=== PATIENT | male | born 1950 | race Caucasian/White ===

== ENCOUNTER 2016-07-17 13:07 | Inpatient (IN) ==
[2016-07-17] MEDS ORDERED: Naloxone 0.4 MG/ML INJ IVP PRN (14:24)
[2016-07-17] MEDS ORDERED: MOM Conc 10 ML UD.LIQ PO PRN (14:24)
[2016-07-17] MEDS ORDERED: Ondansetron 4 MG/2 ML VIAL IVP PRN (14:24)
[2016-07-17] MEDS: Acetaminophen 325 MG TABLET PO PRN (14:32)
[2016-07-17 14:34] LABS: Basophils # 0.1 K/mcL (0.0-0.2); Basophils % 1.1 %; Eosinophils # 1.6 K/mcL (0.0-0.6); Eosinophils % 17.6 %; Hematocrit 52.4 % (37.5-50.1); Hemoglobin 17.4 g/dL (12.9-16.9); Immature Granulocytes % 0.3 % (0-4); Lymphocytes # 2.5 K/mcL (0.6-4.6); Lymphocytes % 27.6 %; Mean Corpuscular HGB Conc 33.2 g/dL (31.6-35.5); Mean Corpuscular Hemoglobin 28.8 pg (28.0-33.3); Mean Corpuscular Volume 86.6 fL (83.0-100.0); Mean Platelet Volume 9.7 fL (9.4-12.4); Monocytes # 0.7 K/mcL (0.0-1.3); Monocytes % 7.7 %; Neutrophils # 4.1 K/mcL (1.6-8.9); Platelet Count 382 K/mcL (140-400); Red Blood Count 6.05 M/mcL (4.19-5.50); Red Cell Distribution Width 13.5 % (11.5-14.5); Segmented Neutrophils % 45.7 %
--- NOTE | 2016-07-17 14:36 | Internal Med History&Physical ---
<JorgeMinnie - Last Filed: 07/17/16 15:01> Date of Encounter: 07/17/16 Time of Encounter: 14:10 Assessment and Plan (1) Oropharyngeal cancer Current visit: Yes Status: Suspected Pt sent from ENT for suspected oropharyngeal cancer. 2 month history of dysphagia and weight loss. CT done at [facility] and disc sent with pt, unable to view at this time. Pt sent for biopsy. INR Surgical Consult CT chest CT abdomen and pelvis CT head NPO Nutrition consult for PEG tube feedings (2) Dysphagia Current visit: Yes Status: Acute Pt has had increasing difficulty swallowing over the last 2 months. Voice is muffled. Pt denies pain. NPO for biopsy tomorrow May take medications Qualifiers: Dysphagia type: oropharyngeal phase Qualified Code(s): R13.12 - Dysphagia, oropharyngeal phase (3) Elevated INR Current visit: Yes Status: Acute Pt has been seeing a clinic [place] for [place] Cou[place]. According to friend at , pt has not had any labs drawn. Friend also states that pt was on Coumadin for CVA 2 years ago. INR 7.0 on admission. 2 units FFP Monitor coagulation studies in am. Internal Medicine - H&P: HPI Chief complaint: Difficulty swallowing x 2 months Admitted From: Home Plans for Post Hospital Care: Home History of present illness: Mr. Conley is a 66 year old male who was sent by ENT for admission for biopsy. Pt has suspected oropharyngeal cancer per CT. Reports 2 month history of difficulty swallowing and 8-10 lb weight loss in that time frame. Past Med Surg Social Fam HX - Past Medical History Medical history: CVA Psychiatric history: no psych history - Past Surgical History Surgical History: non-contributory, orthopedic, other (L knee surgery, L shoulder surgery ) - Social History Smoking Status: Current every day smoker Packs per day: 0.5 Smokeless Tobacco Status: No Alcohol use: occasionally Drug use: none Internal Medicine - H&P: Meds Albuterol Sulfate [Albuterol Inhaler] 1 puff IH Q4HR 07/17/16 [History] HYDROcodone/Acet 7.5/325 mg [[place] 7.5-325 mg] 1 tab PO Q4HR PRN 07/17/16 [ History] Magic Mouthwash 5 ml PO TID 07/17/16 [History] Warfarin [Coumadin] 5 mg PO 1800 01/18/17 [History] Allergies No Known Allergies Allergy (Verified 07/17/16 13:52) All Systems PM: A 10-system review of systems was performed and is negative for pertinent findings except as documented above in the HPI. - Constitutional Constitutional: fatigue, weight loss - Cardiovascular Cardiovascular ROS IM: no chest pain, no dyspnea, no edema - Respiratory Respiratory: no dyspnea, no wheezing, no stridor, no chest congestion - Gastrointestinal Gastrointestinal: constipation, dysphagia, no abdominal pain, no change in stool character, no coffee ground emesis, no diarrhea - Constitutional Vitals: Temp Pulse Resp BP Pulse Ox 97.5 F L 88 17 179/97 97 07/17/16 13:50 07/17/16 13:50 07/17/16 13:50 07/17/16 13:50 07/17/16 13:50 General appearance: Present: A&O X 3, underweight, answers questions appropriately - Head Head exam: Present: normal inspection - ENT ENT exam: Present: mucous membranes dry, normal external ear exam - Neck Neck exam general surgery: Present: lymphadenopathy - Respiratory Respiratory exam: Absent: accessory muscle use, decreased breath sounds, respiratory distress, rhonchi, stridor, wheezes - Cardiovascular Cardiovascular exam: Present: RRR, +S1, +S2. Absent: bradycardia, JVD, tachycardia - GI/Abdominal GI/Abdominal exam: Present: hyperactive bowel sounds, soft. Absent: splenomegaly, tenderness - Extremities Exam Extremities exam: Present: radial pulses palpable and symetrical. Absent: cyanotic, joint swelling, normal inspection, mottling, pedal edema - Neurological Exam Neurological exam: Present: alert, oriented X3 - Skin Skin exam: Present: pallor, warm Internal Med - H&P Results - Labs CBC & Chem 7: 07/17/16 14:21 07/17/16 14:21 <Guillermo Copeland T - Last Filed: 07/17/16 15:25> Date of Encounter: 07/17/16 Internal Medicine - H&P: HPI History of present illness: Mr. Conley is a 66 year old male All Systems PM: A 10-system review of systems was performed and is negative for pertinent findings except as documented above in the HPI. - Constitutional Vitals: Temp Pulse Resp BP Pulse Ox 97.5 F L 88 17 179/97 97 07/17/16 13:50 07/17/16 13:50 07/17/16 13:50 07/17/16 13:50 07/17/16 13:50 Internal Med - H&P Results - Labs CBC & Chem 7: 07/17/16 14:21 07/17/16 14:21 Labs: Short CBC 07/17/16 Range/Units 14:21 WBC 9.1 (4.3-11.1) K/mcL Hgb 17.4 H (12.9-16.9) g/dL Hct 52.4 H (37.5-50.1) % Plt Count 382 (140-400) K/mcL Neutrophils # 4.1 (1.6-8.9) K/mcL BMP 07/17/16 14:21 Sodium 134 L Potassium 4.1 Chloride 97 L Carbon Dioxide 24 BUN 8 Creatinine 0.81 Glucose 97 Calcium 9.4 Liver Function 07/17/16 Range/Units 14:21 Total Bilirubin 0.5 (0.2-1.2) mg/dL AST 21 (5-34) Units/L ALT 21 (0-55) Units/L Alkaline Phosphatase 113 (38-126) Units/L Albumin 3.8 (3.5-5.0) g/dL - Attending Attestation I have independently seen and examined this patient, and discussed turner of care with patient, his best friend who is his MPOA and his best friends daughter 66 Y/O M, smoker, HTN, hx of CVA without residual deficits on Coumadin (unsure why Coumadin and not ASA), Patient denies any history of ASA allergy. Chart review from [facility] also reviewed hx of COPD, HTN, Arthritis, s/p ORIF of left shoulder and L femur. Patient is referred to hospitalist for admission from ENT physician who is seeing patient for suspected pharyngeal CA. Due to use of Coumadin, he is being admitted for work up for biopsy and for possible pre-op clearance and possible PEG tube placement Hx from patient and family reveal he has been having poor oral intake for about 8 months with associated weight loss and dysphagia. His PCPs office obtained a neck CT and referred him here for eval. At time of review, his complaint is of headache which is worse when he lays flat and improves with sitting up. Denies chest pain, SOB, abdominal discomfort, change in bowel or urinary habits. Physical Exam revealed a disheveled elderly man in painful distress, VS with elevated BP. No obvious scalp lesions, no tenderness of scalp to palpation he is alert and oriented no facial droop, he moves all limbs spontaneously, and no speech deficits. His voice is muffled possibly from his pharyngeal mass, anterior cervical lymph nodes; tongue is central, unable to see beyond his upper palate. Chest is clear, heart sounds S1, S2 only, abdomen is scaphoid, not tender, normal bowel sounds. No extremity edema. Assessment/Plan: Suspected Oropharyngeal CA: Labs and Imaging has been ordered including CBC, Type and screen, PT/INR/PTT, Head and Neck, Chest, abdomen/pelvis CT for staging with contrast,, EKG and comprehensive metabolic panel. FFP if INR >1.7, Hold Coumadin, Pain control. Start Norvasc for HTN. Nutrition consult, NPO for now except medications, IVF hydration, and General surgery for evaluation for feeding tube. Oncology consult when results are back Plan of care discussed with patient, verbalizes understanding. Patient is full code Rest of details as in SAFETY ASSISTANT documentation.
[2016-07-17 14:49] LABS: Alanine Aminotransferase 21 Units/L (0-55); Albumin 3.8 g/dL (3.5-5.0); Albumin/Globulin Ratio 0.9 (1.1-2.2); Alkaline Phosphatase 113 Units/L (38-126); Aspartate Amino Transferase 21 Units/L (5-34); BUN/Creatinine Ratio 10 (6-26); Bilirubin,Total 0.5 mg/dL (0.2-1.2); Blood Urea Nitrogen 8 mg/dL (8-26); Calcium 9.4 mg/dL (8.6-10.8); Carbon Dioxide 24 mEq/L (19-29); Chloride 97 mEq/L (98-109); Globulin 4.2 g/dL (2.4-3.5); Glucose 97 mg/dL (70-99); Osmolality,Calculated 276 (280-300); Potassium 4.1 mEq/L (3.5-4.5); Sodium 134 mEq/L (136-145); eGFR For African Americans > 60 (> 60); eGFR For Non-African Americans > 60 (> 60)
[2016-07-17 14:52] LABS: Activated Partial Thrombo Time 100.2 Seconds (26.0-36.0)
[2016-07-17 14:54] LABS: Prothrombin Time 80.7 Seconds (9.4-12.1)
[2016-07-17] MEDS: Magic Mouthwash 10 ML UD Cup PO SCH ×2 (15:31→20:56)
[2016-07-17] MEDS ORDERED: 0.9 % Sodium Chloride 250 ML ONE ×2 (16:09→19:09)
[2016-07-17] MEDS: *HR* HYDROcodone/Acet 5/325 mg TABLET PO PRN ×2 (16:15→20:56)
[2016-07-17] MEDS: D5% in 0.9% NACL 1,000 ML IVC SCH (16:16)
[2016-07-17] MEDS ORDERED: *HR* Labetalol 20 MG/4 ML SYRINGE IVP ONE (16:23)
[2016-07-17] MEDS ORDERED: amLODIPine 5 MG TABLET PO ONE ×2 (20:15)
[2016-07-18 04:33] LABS: Basophils # 0.1 K/mcL (0.0-0.2); Basophils % 0.8 %; Eosinophils # 1.8 K/mcL (0.0-0.6); Eosinophils % 13.6 %; Hematocrit 46.4 % (37.5-50.1); Hemoglobin 15.9 g/dL (12.9-16.9); Immature Granulocytes % 0.3 % (0-4); Lymphocytes # 1.9 K/mcL (0.6-4.6); Lymphocytes % 14.4 %; Mean Corpuscular HGB Conc 34.3 g/dL (31.6-35.5); Mean Corpuscular Hemoglobin 29.3 pg (28.0-33.3); Mean Corpuscular Volume 85.6 fL (83.0-100.0); Mean Platelet Volume 10.1 fL (9.4-12.4); Monocytes # 1.2 K/mcL (0.0-1.3); Monocytes % 9.1 %; Platelet Count 321 K/mcL (140-400); Red Blood Count 5.42 M/mcL (4.19-5.50); Red Cell Distribution Width 13.4 % (11.5-14.5); Segmented Neutrophils % 61.8 %
[2016-07-18 04:36] LABS: Activated Partial Thrombo Time 54.3 Seconds (26.0-36.0)
[2016-07-18 04:41] LABS: INR 2.6; Prothrombin Time 28.5 Seconds (9.4-12.1)
[2016-07-18 04:44] LABS: BUN/Creatinine Ratio 8 (6-26); Calcium 8.9 mg/dL (8.6-10.8); Carbon Dioxide 24 mEq/L (19-29); Chloride 100 mEq/L (98-109); Glucose 125 mg/dL (70-99); Osmolality,Calculated 279 (280-300); Potassium 3.4 mEq/L (3.5-4.5); Sodium 135 mEq/L (136-145); eGFR For African Americans > 60 (> 60); eGFR For Non-African Americans > 60 (> 60)
[2016-07-18 05:05] LABS: Blood Urea Nitrogen 5 mg/dL (8-26)
--- NOTE | 2016-07-18 07:54 | General Surgery Consult Note ---
<Daquan Lewis - Last Filed: 07/18/16 13:55> Date of Encounter: 07/18/16 Time of Encounter: 07:20 Assessment and Plan (1) Dysphagia Current Visit: Yes Status: Acute Plan for PEG placement, Triple endoscopy and biopsy, and possible trach placement tomorrow. INR to be further corrected, <1.3 prior to surgery NPO after midnight Continue IVF and clear fluids Qualifiers: Dysphagia type: oropharyngeal phase Qualified Code(s): R13.12 - Dysphagia, oropharyngeal phase (2) Neck mass Current Visit: Yes Status: Acute Likely R oropharyngeal cancer. ENT on board. Consult oncology. (3) Malnutrition Current Visit: Yes Status: Acute Nutrition consulted. Plan for PEG placement tomorrow. (4) Elevated INR Current Visit: Yes Status: Acute Patient received 2 units of fresh frozen plasma. INR initially 7, currently 2.6. Continue to trend and recheck. Per ENT, goal is less than 1.3 prior to procedure tomorrow. (5) HTN (hypertension) Current Visit: Yes Status: Chronic BP stable at this time. No home medications noted, was started on 10mg Norvasc daily. Management per medicine service. Qualifiers: Hypertension type: essential hypertension Qualified Code(s): I10 - Essential (primary) hypertension History of Present Illness Consult date: 07/17/16 Reason for consult: other (PEG tube placement) Requesting physician: Minnie Patel History of present illness: Mr. Conley is 66 year old male that presented to the hospital after seeing ENT for neck mass x 2 months and dysphagia and weight loss x 2-3 weeks. PMHx of tobacco use 1/2ppd x 50 years, HTN, CVA without residual deficits (on Coumadin) , COPD, Arthritis, s/p ORIF of left shoulder and L femur. Patient was referred to ENT after neck CT was done by PCP. Patient currently states he has a headache in the R temporal region extending down the right side of his face and neck. Patient states he has difficulty with both solids and liquids. He notes increased sputum production. He denies any dizziness, chest pain, shortness of breath, nausea, vomiting, abdominal pain, any changes with his bowels or bladder. Past Med Surg Social Fam HX - Past Medical History Medical history: CVA Psychiatric history: no psych history - Past Surgical History Surgical History: non-contributory, orthopedic, other (L knee surgery, L shoulder surgery ) - Social History Smoking Status: Current every day smoker Packs per day: 0.5 Smokeless Tobacco Status: No Alcohol use: occasionally Drug use: none Medications and Allergies Albuterol Sulfate [Albuterol Inhaler] 2 puff IH Q4HR PRN 07/17/16 [History] HYDROcodone/Acet 7.5/325 mg [[place] 7.5-325 mg] 1 - 2 tab PO Q4HR PRN 07/17/16 [ History] Magic Mouthwash 5 ml PO Q4H PRN 07/17/16 [History] Warfarin [Coumadin] 5 mg PO 1800 07/17/16 [History] Allergies No Known Allergies Allergy (Verified 07/17/16 13:52) Review of Systems All systems PM: A 10-system review of systems was performed and is negative for pertinent findings except as documented above in the HPI. - Constitutional headache(s), weakness, weight loss, no chills, no fever(s) - EENT Nose, mouth and throat: change in voice, facial pain, headache(s), neck mass, neck pain, post-nasal drip - Cardiovascular no chest pain, no dyspnea, no edema, no lightheadedness, no syncope - Respiratory excessive phlegm production - Gastrointestinal dysphagia, no abdominal pain, no nausea, no vomiting - Genitourinary no dysuria, no hematuria - Musculoskeletal muscle weakness, no radiating pain into limb - Neurological no confusion, no focal weakness General Surgery Exam Initial Vital Signs Temp Pulse Resp BP Pulse Ox 97.5 F L 88 17 179/97 97 07/17/16 13:50 07/17/16 13:50 07/17/16 13:50 07/17/16 13:50 07/17/16 13:50 - General physical appearance well developed, well nourished, no distress - ENT normal mucosa, atraumatic, normocephalic - Neck negative: no masses, no lymphadectomy - Respiratory normal respiratory effort, clear to auscultation - Cardiovascular Cardiovascular exam: Present: RRR, no murmurs/rubs/gallops - Expanded Cardiovascular Exam Peripheral pulses: 2+: Dorsalis Pedis (L) PM, Dorsalis Pedis (R) PM - Abdomen Abdomen general surgery: Present: bowel sounds present, soft, non tender - Integumentary Integumentary general surgery: Present: warm and dry, no abnormal pigmentation - Neurologic Present: CN 2-12 grossly intact. Absent: combative, confused - Musculoskeletal Present: normal gait, normal posture - Psychiatric Psychiatric general surgery: Present: A&Ox3, appropriate Exam Initial Vital Signs Temp Pulse Resp BP Pulse Ox 97.5 F L 88 17 179/97 97 07/17/16 13:50 07/17/16 13:50 07/17/16 13:50 07/17/16 13:50 07/17/16 13:50 Results - Labs 07/18/16 03:40 07/18/16 03:40 Abnormal lab results WBC 13.0 K/mcL (4.3-11.1) H 07/18/16 03:40 Eosinophils # 1.8 K/mcL (0.0-0.6) H 07/18/16 03:40 PT 28.5 Seconds (9.4-12.1) H D 07/18/16 03:40 APTT 54.3 Seconds (26.0-36.0) H 07/18/16 03:40 Sodium 135 mEq/L (136-145) L 07/18/16 03:40 Potassium 3.4 mEq/L (3.5-4.5) L 07/18/16 03:40 BUN 5 mg/dL (8-26) L 07/18/16 03:40 Creatinine 0.65 mg/dL (0.72-1.25) L 07/18/16 03:40 Glucose 125 mg/dL (70-99) H 07/18/16 03:40 Calculated Osmolality 279 (280-300) L 07/18/16 03:40 Globulin 4.2 g/dL (2.4-3.5) H 07/17/16 14:21 Albumin/Globulin Ratio 0.9 (1.1-2.2) L 07/17/16 14:21 Diabetes panel 07/17/16 07/18/16 Range/Units 14:21 03:40 Sodium 134 L 135 L (136-145) mEq/L Potassium 4.1 3.4 L (3.5-4.5) mEq/L Chloride 97 L 100 (98-109) mEq/L Carbon Dioxide 24 24 (19-29) mEq/L BUN 8 5 L (8-26) mg/dL Creatinine 0.81 0.65 L (0.72-1.25) mg/dL Glucose 97 125 H (70-99) mg/dL Calcium 9.4 8.9 (8.6-10.8) mg/dL AST 21 (5-34) Units/L ALT 21 (0-55) Units/L Alkaline Phosphatase 113 (38-126) Units/L Albumin 3.8 (3.5-5.0) g/dL Calcium panel 07/17/16 07/18/16 Range/Units 14:21 03:40 Calcium 9.4 8.9 (8.6-10.8) mg/dL Albumin 3.8 (3.5-5.0) g/dL Pituitary panel 07/17/16 07/18/16 Range/Units 14:21 03:40 Sodium 134 L 135 L (136-145) mEq/L Potassium 4.1 3.4 L (3.5-4.5) mEq/L Chloride 97 L 100 (98-109) mEq/L Carbon Dioxide 24 24 (19-29) mEq/L BUN 8 5 L (8-26) mg/dL Creatinine 0.81 0.65 L (0.72-1.25) mg/dL Glucose 97 125 H (70-99) mg/dL Calcium 9.4 8.9 (8.6-10.8) mg/dL Adrenal panel 07/17/16 07/18/16 Range/Units 14:21 03:40 Sodium 134 L 135 L (136-145) mEq/L Potassium 4.1 3.4 L (3.5-4.5) mEq/L Chloride 97 L 100 (98-109) mEq/L Carbon Dioxide 24 24 (19-29) mEq/L BUN 8 5 L (8-26) mg/dL Creatinine 0.81 0.65 L (0.72-1.25) mg/dL Glucose 97 125 H (70-99) mg/dL Calcium 9.4 8.9 (8.6-10.8) mg/dL Total Bilirubin 0.5 (0.2-1.2) mg/dL AST 21 (5-34) Units/L ALT 21 (0-55) Units/L Alkaline Phosphatase 113 (38-126) Units/L Albumin 3.8 (3.5-5.0) g/dL All other labs normal. Consult Discharge Plan - Plan Referrals: NO,PCP [Primary Care Provider] - <Jian Marr - Last Filed: 07/19/16 14:49> Review of Systems All systems PM: A 10-system review of systems was performed and is negative for pertinent findings except as documented above in the HPI. General Surgery Exam Initial Vital Signs Temp Pulse Resp BP Pulse Ox 97.5 F L 88 17 179/97 97 07/17/16 13:50 07/17/16 13:50 07/17/16 13:50 07/17/16 13:50 07/17/16 13:50 Exam Initial Vital Signs Temp Pulse Resp BP Pulse Ox 97.5 F L 88 17 179/97 97 07/17/16 13:50 07/17/16 13:50 07/17/16 13:50 07/17/16 13:50 07/17/16 13:50 Results - Labs 07/19/16 03:48 07/19/16 03:48 Abnormal lab results WBC 17.5 K/mcL (4.3-11.1) H 07/19/16 03:48 Neutrophils # 11.9 K/mcL (1.6-8.9) H 07/19/16 03:48 Monocytes # 1.6 K/mcL (0.0-1.3) H 07/19/16 03:48 Eosinophils # 1.1 K/mcL (0.0-0.6) H 07/19/16 03:48 PT 14.4 Seconds (9.4-12.1) H D 07/19/16 03:48 APTT 54.3 Seconds (26.0-36.0) H 07/18/16 03:40 Sodium 133 mEq/L (136-145) L 07/19/16 03:48 BUN 3 mg/dL (8-26) L 07/19/16 03:48 Creatinine 0.65 mg/dL (0.72-1.25) L 07/19/16 03:48 BUN/Creatinine Ratio 5 (6-26) L 07/19/16 03:48 Glucose 120 mg/dL (70-99) H 07/19/16 03:48 Calculated Osmolality 274 (280-300) L 07/19/16 03:48 Globulin 4.2 g/dL (2.4-3.5) H 07/17/16 14:21 Albumin/Globulin Ratio 0.9 (1.1-2.2) L 07/17/16 14:21 Diabetes panel 07/19/16 Range/Units 03:48 Sodium 133 L (136-145) mEq/L Potassium 3.8 (3.5-4.5) mEq/L Chloride 100 (98-109) mEq/L Carbon Dioxide 26 (19-29) mEq/L BUN 3 L (8-26) mg/dL Creatinine 0.65 L (0.72-1.25) mg/dL Glucose 120 H (70-99) mg/dL Calcium 8.9 (8.6-10.8) mg/dL Calcium panel 07/19/16 Range/Units 03:48 Calcium 8.9 (8.6-10.8) mg/dL Pituitary panel 07/19/16 Range/Units 03:48 Sodium 133 L (136-145) mEq/L Potassium 3.8 (3.5-4.5) mEq/L Chloride 100 (98-109) mEq/L Carbon Dioxide 26 (19-29) mEq/L BUN 3 L (8-26) mg/dL Creatinine 0.65 L (0.72-1.25) mg/dL Glucose 120 H (70-99) mg/dL Calcium 8.9 (8.6-10.8) mg/dL Adrenal panel 07/19/16 Range/Units 03:48 Sodium 133 L (136-145) mEq/L Potassium 3.8 (3.5-4.5) mEq/L Chloride 100 (98-109) mEq/L Carbon Dioxide 26 (19-29) mEq/L BUN 3 L (8-26) mg/dL Creatinine 0.65 L (0.72-1.25) mg/dL Glucose 120 H (70-99) mg/dL Calcium 8.9 (8.6-10.8) mg/dL All other labs normal. - Attending Attestation I examined this patient and my medical decision-making was reviewed with the CERTIFIED [employer] OPERATOR/PA/Advanced Practice Nurse/Resident Physician. I agree with the documented findings, disposition and treatment plan as described except to the extent set forth below. Jian Marr MD FACS
--- NOTE | 2016-07-18 08:05 | ENT - Progress Note ---
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 Treatment would be palliative. I think it's reasonable to not only provide a PEG but discuss possible treatment with him today. If after these discussions he does not want treatment I would advocate for a trach placement if the frozen analysis comes back as squamous cell cancer, as I suspect it will be. 1. Plan for OR tomorrow - PEG, Triple endoscopy and biopsy, possible trach placement 2. Please consult Oncology, Radiation Oncology and Palliative today 3. INR to be further corrected - appreciate IM help here - ideally need to see this lower by the end of the day and need <1.3 prior to surgery 4. NPO after MN 5. Continue IVF and liquids, ambulation, DVT prophylaxis Please page with questions/concerns. Subjective Patient reports: no new complaints, other (swallowing some liquids, ambulating to bathroom) Objective Initial Vital Signs Temp Pulse Resp BP Pulse Ox 97.5 F L 88 17 179/97 97 07/17/16 13:50 07/17/16 13:50 07/17/16 13:50 07/17/16 13:50 07/17/16 13:50 - General physical appearance chronically ill - ENT Other (unchanged from exam yesterday) - Labs 07/18/16 03:40 07/18/16 03:40 Diabetes panel 07/17/16 07/18/16 Range/Units 14:21 03:40 Sodium 134 L 135 L (136-145) mEq/L Potassium 4.1 3.4 L (3.5-4.5) mEq/L Chloride 97 L 100 (98-109) mEq/L Carbon Dioxide 24 24 (19-29) mEq/L BUN 8 5 L (8-26) mg/dL Creatinine 0.81 0.65 L (0.72-1.25) mg/dL Glucose 97 125 H (70-99) mg/dL Calcium 9.4 8.9 (8.6-10.8) mg/dL AST 21 (5-34) Units/L ALT 21 (0-55) Units/L Alkaline Phosphatase 113 (38-126) Units/L Albumin 3.8 (3.5-5.0) g/dL Calcium panel 07/17/16 07/18/16 Range/Units 14:21 03:40 Calcium 9.4 8.9 (8.6-10.8) mg/dL Albumin 3.8 (3.5-5.0) g/dL Pituitary panel 07/17/16 07/18/16 Range/Units 14:21 03:40 Sodium 134 L 135 L (136-145) mEq/L Potassium 4.1 3.4 L (3.5-4.5) mEq/L Chloride 97 L 100 (98-109) mEq/L Carbon Dioxide 24 24 (19-29) mEq/L BUN 8 5 L (8-26) mg/dL Creatinine 0.81 0.65 L (0.72-1.25) mg/dL Glucose 97 125 H (70-99) mg/dL Calcium 9.4 8.9 (8.6-10.8) mg/dL Adrenal panel 07/17/16 07/18/16 Range/Units 14:21 03:40 Sodium 134 L 135 L (136-145) mEq/L Potassium 4.1 3.4 L (3.5-4.5) mEq/L Chloride 97 L 100 (98-109) mEq/L Carbon Dioxide 24 24 (19-29) mEq/L BUN 8 5 L (8-26) mg/dL Creatinine 0.81 0.65 L (0.72-1.25) mg/dL Glucose 97 125 H (70-99) mg/dL Calcium 9.4 8.9 (8.6-10.8) mg/dL Total Bilirubin 0.5 (0.2-1.2) mg/dL AST 21 (5-34) Units/L ALT 21 (0-55) Units/L Alkaline Phosphatase 113 (38-126) Units/L Albumin 3.8 (3.5-5.0) g/dL - Imaging CT scan - abdomen: report reviewed CT scan - chest: report reviewed CT Scan - head: report reviewed CT scan - pelvis: report reviewed - VTE Reasons for not Prescribing Prophylaxis: Medical contraindication Documentation of Mechanical Device: Graduated compression elastic hosiery Deep Vein Thrombosis/Pulmonary Embolism Present on Admission: No Consult Discharge Plan - Plan Referrals: NO,PCP [Primary Care Provider] -
[2016-07-18] MEDS: amLODIPine 5 MG TABLET PO SCH (08:24)
[2016-07-18] MEDS: Magic Mouthwash 10 ML UD Cup PO SCH ×3 (08:24→19:53)
[2016-07-18] MEDS: D5% in 0.9% NACL 1,000 ML IVC SCH (08:27)
[2016-07-18] MEDS ORDERED: *HR* Promethazine 25 MG/ML VIAL IVP PRN (08:46)
[2016-07-18] MEDS ORDERED: Ondansetron 4 MG/2 ML VIAL IVP PRN (08:48)
--- NOTE | 2016-07-18 08:55 | Internal Med Progress Note ---
Date of Encounter: 07/18/16 Time of Encounter: 08:30 - Assessment and plan (1) Oropharyngeal cancer Current Visit: Yes Status: Suspected Assessment and plan: Patient was sent from an outlying hospital with suspected oropharyngeal cancer. 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 Mild narrowing of supraglottic airway also noted. ENT is on board. Surgery is on board. Plan is for biopsy and PEG tube placement tomorrow assuming his INR is 1.3 or less. It does not appear to be any further metastasis at this time. Head CT negative, chest CT negative, abdominal pelvic CT negative. On examination, patient's voice is muffled. No stridor or drooling. He is able to drink liquids however intermittently chokes. Speech therapy is on board and have recommended a modified barium swallow to be done on Friday if still indicated. Nutrition and oncology also on board. Palliative care on board as well. Patient stating that if he were to get sicker that he wants "nothing done, keep me comfortable." CODE STATUS updated to DNR CC at this time. We will continue to control his pain. ITS Impressions Soft Tissue Neck CT 07/17/16 00:00 IMPRESSION: Large 4.3 cm infiltrative right supraglottic mass involving the tonsil which extends posteriorly to encase the right internal carotid artery. There is associated right level IIb jugulodigastric lymphadenopathy measuring 1.8 cm and 1.9 cm. These changes are compatible with squamous cell carcinoma. There is mild narrowing of the supraglottic airway which is mildly displaced to the left. D/ / 07/17/2016 16:52:23 Law Pineda MD / [email or web address] Interpreting Provider: Law Pineda MD Head CT 07/17/16 14:19 IMPRESSION: No acute intracranial abnormality. D/ / Paul Mejia MD / Paul Mejia MD Interpreting Provider: Paul Mejia MD Chest CT 07/17/16 14:21 IMPRESSION: No CT evidence for metastatic disease in the abdomen or pelvis or chest D/ / Paul Mejia MD / Paul Mejia MD Interpreting Provider: Paul Mejia MD Abdomen/Pelvis CT 07/17/16 14:22 IMPRESSION: No CT evidence for metastatic disease in the abdomen or pelvis or chest D/ / Paul Mejia MD / Paul Mejia MD Interpreting Provider: Paul Mejia MD (2) Neck mass Current Visit: Yes Status: Acute (3) Supratherapeutic INR Current Visit: Yes Status: Resolved Assessment and plan: Patient was given 2 units of fresh frozen plasma. INR initially at 7 and currently 2.6. We will continue to trend and recheck later today. Per ENT, goal is less than 1.3 prior to procedure tomorrow. (4) Code status needs review Current Visit: Yes Status: Acute Assessment and plan: History to the patient regarding his CODE STATUS, patient stating he does not want anything done and he wants to be kept comfortable. We will update CODE STATUS to DNR CC. Palliative care on board. (5) Weight loss, unintentional Current Visit: Yes Status: Acute Assessment and plan: Nutrition and palliative are on board. Plan at this time is to place a PEG tube tomorrow morning per Dr. Marr. (6) Tobacco abuse Current Visit: Yes Status: Chronic Assessment and plan: declined counseling at this time. (7) Leukocytosis Current Visit: Yes Status: Acute Assessment and plan: mild; possibly stress related. No signs of acute infection other than his URI symptoms. No indication for antibiotics at this time. Will trend. (8) Hypokalemia Current Visit: Yes Status: Acute Assessment and plan: mild; IVF changed, will recheck in am. (9) Dysphagia Current Visit: Yes Status: Acute Assessment and plan: Acute on chronic over the past 2 months. Nothing by mouth at this time. Speech therapy has recommended an MBS for friday if still indicated. Patient is stating that he is able to swallow liquids most of the time but states she does sometimes choke. PEG tube to be placed tomorrow. Oncology, surgery, ENT, palliative care, nutrition and speech all on board. Qualifiers: Dysphagia type: oropharyngeal phase Qualified Code(s): R13.12 - Dysphagia, oropharyngeal phase (10) Malnutrition Current Visit: Yes Status: Acute (11) HTN (hypertension) Current Visit: Yes Status: Chronic Assessment and plan: Controlled, we will continue to trend and adjust medications as indicated. Qualifiers: Hypertension type: essential hypertension Qualified Code(s): I10 - Essential (primary) hypertension - Subjective Interval history: Patient seen and examined. On examination, patient is sitting upright in bed. Patient stating his throat hurts, his head hurts, and he feels as if his nose is stuffed up and feels as if he has a cold. Patient is also endorsing mild shortness of breath but not worse than his norm. He denies nausea. - Constitutional Vitals: Temp Pulse Resp BP Pulse Ox 97.4 F L 77 19 145/73 96 07/18/16 07:07 07/18/16 07:07 07/18/16 08:27 07/18/16 07:07 07/18/16 08:32 General appearance: Present: A&O X 3, pleasant, no acute distress, loss of weight, answers questions appropriately - Head Head exam: Present: atraumatic, normocephalic - Eye Eye exam: Present: PERRL, conjuntiva pink, sclera anicteric Pupils: Present: PERRL - ENT ENT exam: Present: mucous membranes dry - Expanded ENT Exam Mouth exam: Present: muffled voice. Absent: drooling, normal external inspection Throat exam: Present: R peritonsillar mass, post pharyngeal edema, post pharyngeal erythema - Neck Neck exam general surgery: Present: supple, trachea midline. Absent: lymphadenopathy - Respiratory Respiratory exam: Present: decreased breath sounds, rhonchi. Absent: accessory muscle use, rales, respiratory distress, wheezes - Cardiovascular Cardiovascular exam: Present: RRR, +S1, +S2. Absent: diastolic murmur, gallop, rubs, systolic murmur - GI/Abdominal GI/Abdominal exam: Present: distended, normal bowel sounds, soft, no peritoneal signs. Absent: tenderness - Extremities Exam Extremities exam: Present: warm, radial pulses palpable and symetrical. Absent : calf tenderness, cyanotic, pedal edema - Neurological Exam Neurological exam: Present: alert, CN II-XII intact, oriented X3, no focal deficits, strengths equal and symetr throughout. Absent: pronater drift, facial droop, speech deficit - Skin Skin exam: Present: dry, intact, pallor, warm Internal Medicine: Result - Labs CBC & Chem 7: 07/18/16 03:40 07/18/16 03:40 Labs: Short CBC 07/17/16 07/18/16 Range/Units 14:21 03:40 WBC 9.1 13.0 H (4.3-11.1) K/mcL Hgb 17.4 H 15.9 D (12.9-16.9) g/dL Hct 52.4 H 46.4 (37.5-50.1) % Plt Count 382 321 (140-400) K/mcL Neutrophils # 4.1 8.0 (1.6-8.9) K/mcL BMP 07/17/16 07/18/16 14:21 03:40 Sodium 134 L 135 L Potassium 4.1 3.4 L Chloride 97 L 100 Carbon Dioxide 24 24 BUN 8 5 L Creatinine 0.81 0.65 L Glucose 97 125 H Calcium 9.4 8.9 Liver Function 07/17/16 Range/Units 14:21 Total Bilirubin 0.5 (0.2-1.2) mg/dL AST 21 (5-34) Units/L ALT 21 (0-55) Units/L Alkaline Phosphatase 113 (38-126) Units/L Albumin 3.8 (3.5-5.0) g/dL - ABG Interpretation ABG results: PT/INR, D-dimer PT 28.5 Seconds (9.4-12.1) H D 07/18/16 03:40 - Impressions Impressions Soft Tissue Neck CT 07/17/16 00:00 IMPRESSION: Large 4.3 cm infiltrative right supraglottic mass involving the tonsil which extends posteriorly to encase the right internal carotid artery. There is associated right level IIb jugulodigastric lymphadenopathy measuring 1.8 cm and 1.9 cm. These changes are compatible with squamous cell carcinoma. There is mild narrowing of the supraglottic airway which is mildly displaced to the left. D/ / 07/17/2016 16:52:23 Law Pineda MD / [email or web address] Interpreting Provider: Law Pineda MD Head CT 07/17/16 14:19 IMPRESSION: No acute intracranial abnormality. D/ / Paul Mejia MD / Paul Mejia MD Interpreting Provider: Paul Mejia MD Chest CT 07/17/16 14:21 IMPRESSION: No CT evidence for metastatic disease in the abdomen or pelvis or chest D/ / Paul Mejia MD / Paul Mejia MD Interpreting Provider: Paul Mejia MD Abdomen/Pelvis CT 07/17/16 14:22 IMPRESSION: No CT evidence for metastatic disease in the abdomen or pelvis or chest D/ / Paul Mejia MD / Paul Mejia MD Interpreting Provider: Paul Mejia MD - Stroke Reason for No Anticoagulant at DC: Medical contraindication - VTE Reasons for not Prescribing Prophylaxis: Medical contraindication Documentation of Mechanical Device: Graduated compression elastic hosiery Deep Vein Thrombosis/Pulmonary Embolism Present on Admission: No Consult Discharge Plan - Plan Referrals: NO,PCP [Primary Care Provider] -
[2016-07-18] MEDS ORDERED: amLODIPine 5 MG TABLET PO SCH (09:00)
[2016-07-18] MEDS: D5% in 0.45% NACL w KCl 20 MEQ/1,000 ML MLS IVC SCH ×2 (09:52→23:44)
[2016-07-18] MEDS: *HR* Morphine 2 MG/ML SYRINGE IVP PRN (09:52)
--- NOTE | 2016-07-18 10:39 | Palliative - Consult Note ---
Date of Encounter: 07/18/16 Time of Encounter: 10:00 - Assessment and Plan (1) Right facial pain Current Visit: Yes Status: Acute Assessment and plan: [place] has been switched to Oxycodone 10 mg - which I think is very appropriate. He also has IV Morphine if needed. Monitor. (2) Constipation Current Visit: Yes Status: Acute Assessment and plan: Give dose Dulcolax today. Start Senokot daily Qualifiers: Constipation type: unspecified constipation type Qualified Code(s): K59.00 - Constipation, unspecified (3) Counseling regarding advanced care planning and goals of care Current Visit: Yes Status: Acute Assessment and plan: Patient has been transitioned to [facility] prior to my visit. He is unsure at this time if he desires treatment. Discussed that with location of this tumor, breathing and swallowing can be affected. Discussed briefly PEG/Trach. Patient is alert and oriented but seems to lack some insight and I feel he needs some assistance with making decisions. States only family is an estranged son. He desires his best friend Ismael to be his medical power of corporate associate attorney. It would be best if Ismael could be present while pt recieving information and making decisions. I am attempting to reach via phone, unsuccessful thus far. Will continue. Forward Ismael contact number to Shakir Carrasco NP who will be seeing pt this afternoon for oncology. Will follow closely. (4) Dysphagia Current Visit: Yes Status: Acute Qualifiers: Dysphagia type: oropharyngeal phase Qualified Code(s): R13.12 - Dysphagia, oropharyngeal phase (5) Neck mass Current Visit: Yes Status: Acute (6) Malnutrition Current Visit: Yes Status: Acute Palliative-CN HPI - Data of Consult Consult date: 07/18/16 Requesting Physician: Janiya Lin Primary Care Provider: PCP NO - Consult Narrative History of present illness: Mr. Conley is a 66 year old male with a previous history of CVA 2 yrs ago, Copd , HTN, who presented with 2 month history of difficulty swallowing and weight loss. He states he has also had rt sided headaches. He does not have a primary physician. Was seen by ENT and suspected to have laryngeal cancer. CT with large mass extending around the right ICA wth lymph node involvement and narrowing of supraglottic airway. He remains on Coumadin from previous CVA and INR elevated on admission. Currently awaiting consults from surgery, ENT, oncology as well. Dieticians following. Patient lives alone and his independent, has friend Ismael Moses states is "best friend" and helps him out. One son, but he is estranged. History of tobacco abuse. Currently sitting up in bed c/o right sided headache, [place] has not been effective. C/o constipation and states has been 1 week since BM. Appears in no distress, taking sips of clear liquids. CC: Janiya Lin Past Med Surg Social Fam HX - Past Medical History Medical history: CVA Psychiatric history: no psych history - Past Surgical History Surgical History: non-contributory, orthopedic, other (L knee surgery, L shoulder surgery ) - Social History Smoking Status: Current every day smoker Packs per day: 0.5 Smokeless Tobacco Status: No Alcohol use: occasionally Drug use: none Medications and Allergies Albuterol Sulfate [Albuterol Inhaler] 2 puff IH Q4HR PRN 07/17/16 [History] HYDROcodone/Acet 7.5/325 mg [[place] 7.5-325 mg] 1 - 2 tab PO Q4HR PRN 07/17/16 [ History] Magic Mouthwash 5 ml PO Q4H PRN 07/17/16 [History] Warfarin [Coumadin] 5 mg PO 1800 07/17/16 [History] Allergies No Known Allergies Allergy (Verified 07/17/16 13:52) All systems: reviewed and no additional remarkable complaints except as stated ( constipation, difficulty swallowing, rt sided headache, weight loww) Palliative Care-Exam - Constitutional Vitals: Temp Pulse Resp BP Pulse Ox 97.4 F L 77 19 145/73 96 07/18/16 07:07 07/18/16 07:07 07/18/16 08:27 07/18/16 07:07 07/18/16 08:32 General appearance: Present: disheveled - Head Head Exam: Present: normal inspection, normocephalic - Expanded ENT Exam Throat exam: Present: R peritonsillar mass - Respiratory Respiratory exam: Present: decreased breath sounds, CTAB - Cardiovascular Cardiovascular exam: Present: +S1, +S2 - GI/Abdominal Exam GI/Abdominal exam: Present: normal bowel sounds, soft - Extremities Exam Extremities exam: Present: normal capillary refill, normal inspection - Neurological Exam Neurological exam: Present: alert, oriented X3, strengths equal and symetr throughout - Psychiatric Psychiatric exam: Present: flat affect - Skin Skin exam: Present: dry, pallor, warm Internal Medicine - CN: Reslt - Labs CBC & Chem 7: 07/18/16 03:40 07/18/16 03:40 Labs: Short CBC 07/17/16 07/18/16 Range/Units 14:21 03:40 WBC 9.1 13.0 H (4.3-11.1) K/mcL Hgb 17.4 H 15.9 D (12.9-16.9) g/dL Hct 52.4 H 46.4 (37.5-50.1) % Plt Count 382 321 (140-400) K/mcL Neutrophils # 4.1 8.0 (1.6-8.9) K/mcL BMP 07/17/16 07/18/16 14:21 03:40 Sodium 134 L 135 L Potassium 4.1 3.4 L Chloride 97 L 100 Carbon Dioxide 24 24 BUN 8 5 L Creatinine 0.81 0.65 L Glucose 97 125 H Calcium 9.4 8.9 Liver Function 07/17/16 Range/Units 14:21 Total Bilirubin 0.5 (0.2-1.2) mg/dL AST 21 (5-34) Units/L ALT 21 (0-55) Units/L Alkaline Phosphatase 113 (38-126) Units/L Albumin 3.8 (3.5-5.0) g/dL - ABG Interpretation ABG results: PT/INR, D-dimer PT 28.5 Seconds (9.4-12.1) H D 07/18/16 03:40 - Impressions Impressions Soft Tissue Neck CT 07/17/16 00:00 IMPRESSION: Large 4.3 cm infiltrative right supraglottic mass involving the tonsil which extends posteriorly to encase the right internal carotid artery. There is associated right level IIb jugulodigastric lymphadenopathy measuring 1.8 cm and 1.9 cm. These changes are compatible with squamous cell carcinoma. There is mild narrowing of the supraglottic airway which is mildly displaced to the left. D/ / 07/17/2016 16:52:23 Law Pineda MD / [email or web address] Interpreting Provider: Law Pineda MD Head CT 07/17/16 14:19 IMPRESSION: No acute intracranial abnormality. D/ / Paul Mejia MD / Paul Mejia MD Interpreting Provider: Paul Mejia MD Chest CT 07/17/16 14:21 IMPRESSION: No CT evidence for metastatic disease in the abdomen or pelvis or chest D/ / Paul Mejia MD / Paul Mejia MD Interpreting Provider: Paul Mejia MD Abdomen/Pelvis CT 07/17/16 14:22 IMPRESSION: No CT evidence for metastatic disease in the abdomen or pelvis or chest D/ / Paul Mejia MD / Paul Mejia MD Interpreting Provider: Paul Mejia MD Consult Discharge Plan - Plan Referrals: NO,PCP [Primary Care Provider] - Palliative Quality Palliative Quality: Screen for Code Status: Yes, Screen for Goals of Care: Yes, Screen for Pain: Yes, If Pain Regimen Started, Initiate Bowel Regimen: Yes, Screen for Nausea/Vomitting: Yes Code Status: 07/17/16 14:24 Resuscitation Status: Active [RES] Routine Comment: Resuscitation Status: Full Code 07/18/16 08:55 CODE [Resuscitation Status: Active] [RES] Routine Comment: per discussion with patient this am Resuscitation Status: DNR-Comfort Care
[2016-07-18] MEDS: *HR* OxyCODONE Immed Rel 5 MG TABLET PO PRN ×3 (11:23→19:53)
--- NOTE | 2016-07-18 13:38 | Electrocardiograph Report ---
[facility] Test Date: 2016-07-17 Pat Name: Jason Conley Department: 113 Room: 3B13 Gender: M Pelota Maker: [id number] Requested By: Guillermo Copeland Order Number: [id number] Reading MD: Maciel Gutiérrez MD Measurements Intervals [place] Rate: 86 P: 1 MA: 173 QRS: -2 QRSD: 123 T: 14 QT: 383 QTc: 426 Interpretive Statements SINUS RHYTHM RIGHT BUNDLE BRANCH BLOCK Electronically Signed On 07-18-16 13:36:57 EST by Maciel Gutiérrez MD
--- NOTE | 2016-07-18 17:29 | Event Note ---
Date of Encounter: 07/18/16 Time of Encounter: 17:25 Medical Oncology consulted by Janiya Sifuentes CNP for Stage IV head and neck cancer. Patient a poor historian and cannot make medical decisions for himself. I discussed case with PC team, Barbie Spicer. He is DNRCC. Oncology would like to speak with patient's POA, Ismael tomorrow during the official consult to see if treatment is an option. The POA needs to make the decisions with patient about PEG, Trach procedures. We will follow up in the AM with patient's POA on arrival, and palliative care. Dr Robbins field control inspector, and in agreement with plan.
--- NOTE | 2016-07-18 17:40 | Event Note ---
Date of Encounter: 07/18/16 Time of Encounter: 17:00 Discussed my portion of the procedure tomorrow with the patient and his friend, who is going to be made the POA tomorrow. Both he and his friend prefer that we wait on my portion of the case until they've talked to Oncology and can talk together about the trach placement. I think if he opts for no treatment I think a trach is a very reasonable thing to do. He is having trouble handling his own secretions now and there is pyriform sinus effacement. I have every expectation this will end up being cancer. If he wants palliative tx or hospice once the diagnosis is established (frozen section in the OR) the trach could be done at that time. I think there are very good chances that if he opts for no treatment that this will obstruct his airway, which was the reason I brought the trach up in the first place. He expressed reservations regarding any treatment in the ENT clinic the day of admission. Hopefully he and his POA' s conversation with Oncology will help to clarify things better. I spoke to them both tonight on speaker phone and they both agreed that the feeding tube would still be something they wanted to proceed with if his blood was adequately reversed (<1.8 per my discussion with Gen Surg today). Will hold off on my part of the procedure for now. Have alerted the OR to this and will f /u with everyone tomorrow in the AM, before the OR.
[2016-07-18] MEDS: Sennosides/Docusate Sodium TABLET PO SCH (19:53)
--- NOTE | 2016-07-18 21:53 | Anesthesia Evaluation PreOp ---
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 Other Medical History: Other (oropharyngeal CA) Anesthesia History: No Prior Anesthetic Complications, Past Anesthesia Alcohol Use: occasionally Drug use: none Medications and Allergies Albuterol Sulfate [Albuterol Inhaler] 2 puff IH Q4HR PRN 07/17/16 [History] HYDROcodone/Acet 7.5/325 mg [[place] 7.5-325 mg] 1 - 2 tab PO Q4HR PRN 07/17/16 [ History] Magic Mouthwash 5 ml PO Q4H PRN 07/17/16 [History] Warfarin [Coumadin] 5 mg PO 1800 07/17/16 [History] Allergies No Known Allergies Allergy (Verified 07/17/16 13:52) - Meds/Allergy Pre-op Review Medications Reviewed: Yes Allergies Reviewed: Yes Beta Blockers on Current Med List: No Anesthesia Results - Labs 07/19/16 03:48 07/19/16 03:48 - Imaging EKG: report reviewed (07/17/2016 SR, RBBB) Additional studies: Soft Tissue Neck CT 07/17/2016 large 4.3 cm ifiltrative right supraglottic mass involving the tonsil which extends posteriorly to encase the right internal carotid artery. There is mild narrowing of the supraglottic airway which is mildly displaced to the left. Anesthesia Exam Vital Signs/O2 Sat, Most Current Temp Pulse Resp BP Pulse Ox 97.9 F 104 14 129/73 92 L 07/18/16 20:31 07/18/16 20:31 07/18/16 20:31 07/18/16 20:31 07/18/16 20:31 Height: 5'9''/1.75 m Weight: 154 lbs/69.853 kg - HEENT Pupil (Motor): EOMI Mallampati: IV Teeth: Edentulous Oral Opening: Greater than 3 - STOCK LIFTER LOC: Oriented STOCK LIFTER Motor: Normal RUE, Normal RLE, Normal LLE, Normal Face, Deficit LUE (left hand weakness) STOCK LIFTER Sensory: Normal: RUE, LUE, RLE, LLE, Face - Cardiac Rhythm: Regular Murmur: None - Pulmonary Breath Sounds: bilateral Rhonchi Respiratory Effort: Symmetrical Anesthesia Assess/Plan ASA Score: 3 Modified Gilbert Scale for Level of Consciousness: Cooperative, oriented, and tranquil Anesthetic Plan: General (Possible difficult airway. Possible awake fiberoptic intubation.) Monitoring Plan: Standard Monitors Recovery Plan: PACU
[2016-07-19 04:02] LABS: Basophils # 0.1 K/mcL (0.0-0.2); Basophils % 0.8 %; Eosinophils # 1.1 K/mcL (0.0-0.6); Hematocrit 45.3 % (37.5-50.1); Hemoglobin 15.4 g/dL (12.9-16.9); Immature Granulocytes % 0.4 % (0-4); Lymphocytes # 2.8 K/mcL (0.6-4.6); Lymphocytes % 15.7 %; Mean Corpuscular Hemoglobin 29.4 pg (28.0-33.3); Mean Corpuscular Volume 86.5 fL (83.0-100.0); Monocytes # 1.6 K/mcL (0.0-1.3); Monocytes % 9.3 %; Neutrophils # 11.9 K/mcL (1.6-8.9); Platelet Count 309 K/mcL (140-400); Red Blood Count 5.24 M/mcL (4.19-5.50); Red Cell Distribution Width 13.6 % (11.5-14.5); Segmented Neutrophils % 67.8 %
[2016-07-19 04:09] LABS: INR 1.3; Prothrombin Time 14.4 Seconds (9.4-12.1)
[2016-07-19 04:38] LABS: BUN/Creatinine Ratio 5 (6-26); Blood Urea Nitrogen 3 mg/dL (8-26); Calcium 8.9 mg/dL (8.6-10.8); Carbon Dioxide 26 mEq/L (19-29); Chloride 100 mEq/L (98-109); Glucose 120 mg/dL (70-99); Magnesium 1.6 mg/dL (1.6-2.6); Osmolality,Calculated 274 (280-300); Potassium 3.8 mEq/L (3.5-4.5); Sodium 133 mEq/L (136-145); eGFR For African Americans > 60 (> 60); eGFR For Non-African Americans > 60 (> 60)
[2016-07-19] MEDS: *HR* OxyCODONE Immed Rel 5 MG TABLET PO PRN ×2 (05:00→09:36)
[2016-07-19] MEDS ORDERED: *HR* Propofol 200 MG/20 ML VIAL IVP ONE (06:36)
[2016-07-19] MEDS ORDERED: *HR* Phenylephrine 10 MG/ML VIAL ONE (06:36)
[2016-07-19] MEDS ORDERED: *HR* Succinylcholine 200 MG/10 ML VIAL IVP ONE (06:36)
[2016-07-19] MEDS ORDERED: Dexamethasone 4 MG/ML VIAL ONE (06:36)
[2016-07-19] MEDS ORDERED: Ondansetron 4 MG/2 ML VIAL ONE (06:36)
[2016-07-19] MEDS ORDERED: *HR* Midazolam HCl 2 MG/2 ML VIAL ONE (06:36)
[2016-07-19] MEDS ORDERED: Lidocaine -MPF 2% 2 ML VIAL ONE (06:36)
[2016-07-19] MEDS ORDERED: *HR* FentaNYL (PF) 100 MCG/2 ML VIAL ONE (06:36)
[2016-07-19] MEDS ORDERED: Dexmedetomidine HCl 0 MCG/0 ML MLS IVC ONE (06:54)
[2016-07-19] MEDS: amLODIPine 5 MG TABLET PO SCH ×2 (07:06→09:36)
[2016-07-19] MEDS: Sennosides/Docusate Sodium TABLET PO SCH ×3 (07:06→19:56)
[2016-07-19] MEDS: Magic Mouthwash 10 ML UD Cup PO SCH ×4 (07:06→19:55)
[2016-07-19] MEDS ORDERED: Lidocaine -MPF 4% 5 ML AMPUL ONE (07:28)
--- NOTE | 2016-07-19 10:43 | Internal Med Progress Note ---
Date of Encounter: 07/19/16 Time of Encounter: 09:30 - Assessment and plan (1) Oropharyngeal cancer Current Visit: Yes Status: Suspected Assessment and plan: ENT is on board who have recommended possible trach placement. Oncology is also on board as well as palliative care. We are awaiting the arrival of the patient's friend Kirby who will become his power of estate attorney at patient's request. Patient is a poor historian and does not appear to have the capacity required to make these decisions. We will continue to address his pain. 07/18/16 Patient was sent from an [facility] with suspected oropharyngeal cancer. 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 Mild narrowing of supraglottic airway also noted. ENT is on board. Surgery is on board. Plan is for biopsy and PEG tube placement tomorrow assuming his INR is 1.3 or less. It does not appear to be any further metastasis at this time. Head CT negative, chest CT negative, abdominal pelvic CT negative. On examination, patient's voice is muffled. No stridor or drooling. He is able to drink liquids however intermittently chokes. Speech therapy is on board and have recommended a modified barium swallow to be done on Friday if still indicated. Nutrition and oncology also on board. Palliative care on board as well. Patient stating that if he were to get sicker that he wants "nothing done, keep me comfortable." CODE STATUS updated to DNR CC at this time. We will continue to control his pain. ITS Impressions Soft Tissue Neck CT 07/17/16 00:00 IMPRESSION: Large 4.3 cm infiltrative right supraglottic mass involving the tonsil which extends posteriorly to encase the right internal carotid artery. There is associated right level IIb jugulodigastric lymphadenopathy measuring 1.8 cm and 1.9 cm. These changes are compatible with squamous cell carcinoma. There is mild narrowing of the supraglottic airway which is mildly displaced to the left. D/ / 07/17/2016 16:52:23 Law Pineda MD / olesya Interpreting Provider: Law Pineda MD Head CT 07/17/16 14:19 IMPRESSION: No acute intracranial abnormality. D/ / Paul Mejia MD / Paul Mejia MD Interpreting Provider: Paul Mejia MD Chest CT 07/17/16 14:21 IMPRESSION: No CT evidence for metastatic disease in the abdomen or pelvis or chest D/ / Paul Mejia MD / Paul Mejia MD Interpreting Provider: Paul Mejia MD Abdomen/Pelvis CT 07/17/16 14:22 IMPRESSION: No CT evidence for metastatic disease in the abdomen or pelvis or chest D/ / Paul Mejia MD / Paul Mejia MD Interpreting Provider: Paul Mejia MD (2) Neck mass Current Visit: Yes Status: Acute (3) Supratherapeutic INR Current Visit: Yes Status: Resolved (4) Code status needs review Current Visit: Yes Status: Acute Assessment and plan: History to the patient regarding his CODE STATUS, patient stating he does not want anything done and he wants to be kept comfortable. We will update CODE STATUS to DNR CC. Palliative care on board. (5) Weight loss, unintentional Current Visit: Yes Status: Acute Assessment and plan: Nutrition and palliative are on board. Plan was originally to place her take 2 this morning however the patient declined once he arrived to the OR. We will revisit this issue once his power of estate attorney has arrived. (6) Tobacco abuse Current Visit: Yes Status: Chronic Assessment and plan: declined counseling at this time. (7) Leukocytosis Current Visit: Yes Status: Acute Assessment and plan: No signs of acute infection, likely secondary to steroid administration, we will continue to trend. (8) Hypokalemia Current Visit: Yes Status: Resolved (9) Dysphagia Current Visit: Yes Status: Acute Assessment and plan: Acute on chronic over the past 2 months. Tolerating clears at this time. Speech therapy has recommended an MBS for friday if still indicated. Patient is stating that he is able to swallow liquids most of the time but states she does sometimes choke. PEG tube possibly to be placed. Oncology, surgery, ENT, palliative care, nutrition and speech all on board. Qualifiers: Dysphagia type: oropharyngeal phase Qualified Code(s): R13.12 - Dysphagia, oropharyngeal phase (10) Malnutrition Current Visit: Yes Status: Acute (11) HTN (hypertension) Current Visit: Yes Status: Chronic Assessment and plan: Controlled, we will continue to trend and adjust medications as indicated. Qualifiers: Hypertension type: essential hypertension Qualified Code(s): I10 - Essential (primary) hypertension (12) Protein-calorie malnutrition, severe Current Visit: Yes Status: Acute Assessment and plan: r/t difficulty swallowing and decreased oral intakes aeb 6% wt loss in 2 months and energy intakes <75% x2 months. Possible peg tube placement planned. - Subjective Interval history: Patient seen and examined upon his return from the OR. Patient is alert and oriented 3. Patient complains of a generalized headache. Patient stating he did not want to proceed with the PEG tube until his friend Kirby can advise him. - Constitutional Vitals: Temp Pulse Resp BP Pulse Ox 97.9 F 83 20 165/87 96 07/19/16 08:51 07/19/16 08:51 07/19/16 08:51 07/19/16 08:51 07/19/16 08:51 General appearance: Present: A&O X 3, pleasant, no acute distress, loss of weight, answers questions appropriately - Head Head exam: Present: atraumatic, normocephalic - Eye Eye exam: Present: PERRL, conjuntiva pink, sclera anicteric Pupils: Present: PERRL - ENT ENT exam: Present: mucous membranes dry - Expanded ENT Exam Mouth exam: Present: muffled voice. Absent: drooling Throat exam: Present: R peritonsillar mass - Neck Neck exam general surgery: Present: lymphadenopathy, tenderness, supple, trachea midline. Absent: normal inspection - Expanded Neck Exam Neck exam: Present: tenderness - Respiratory Respiratory exam: Present: decreased breath sounds. Absent: accessory muscle use, rales, respiratory distress, rhonchi, wheezes - Cardiovascular Cardiovascular exam: Present: RRR, +S1, +S2. Absent: diastolic murmur, gallop, rubs, systolic murmur - GI/Abdominal GI/Abdominal exam: Present: normal bowel sounds, soft, no peritoneal signs. Absent: distended, tenderness - Extremities Exam Extremities exam: Present: warm, radial pulses palpable and symetrical. Absent : calf tenderness, cyanotic, pedal edema - Neurological Exam Neurological exam: Present: alert, CN II-XII intact, oriented X3, no focal deficits, strengths equal and symetr throughout. Absent: pronater drift, facial droop, speech deficit - Skin Skin exam: Present: dry, intact, pallor, warm Internal Medicine: Result - Labs CBC & Chem 7: 07/19/16 03:48 07/19/16 03:48 Labs: Short CBC 07/19/16 Range/Units 03:48 WBC 17.5 H (4.3-11.1) K/mcL Hgb 15.4 (12.9-16.9) g/dL Hct 45.3 (37.5-50.1) % Plt Count 309 (140-400) K/mcL Neutrophils # 11.9 H (1.6-8.9) K/mcL BMP 07/19/16 03:48 Sodium 133 L Potassium 3.8 Chloride 100 Carbon Dioxide 26 BUN 3 L Creatinine 0.65 L Glucose 120 H Calcium 8.9 - ABG Interpretation ABG results: PT/INR, D-dimer PT 14.4 Seconds (9.4-12.1) H D 07/19/16 03:48 - Stroke Reason for No Anticoagulant at DC: Medical contraindication - VTE Reasons for not Prescribing Prophylaxis: Medical contraindication Documentation of Mechanical Device: Graduated compression elastic hosiery Deep Vein Thrombosis/Pulmonary Embolism Present on Admission: No Consult Discharge Plan - Plan Referrals: NO,PCP [Primary Care Provider] -
--- NOTE | 2016-07-19 12:09 | General Surgery Progress Note ---
<BrevardJennifer Juliet - Last Filed: 07/19/16 12:18> Date of Encounter: 07/19/16 Time of Encounter: 12:00 - Assessment and Plan (1) Dysphagia Current Visit: Yes Status: Acute Patient likely has a head/neck cancer He refused peg tube placement this morning with Dr. 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 May have clear liquids if able to tolerate NPO after midnight (4) Neck mass Current Visit: Yes Status: Acute ENT following Recommending biopsies and possible tracheostomy- patient requested not proceeding with any procedures today Oncology consulted (5) HTN (hypertension) Current Visit: Yes Status: Chronic Management per medicine service Qualifiers: Hypertension type: essential hypertension Qualified Code(s): I10 - Essential (primary) hypertension Subjective Patient reports: no new complaints, afebrile, other (Patient refused peg tube placement this morning) Objective Vital Signs - Last 8 Hours Temp Pulse Resp BP Pulse Ox 07/19/16 11:39 16 95 07/19/16 11:32 97.9 F 84 12 133/75 96 07/19/16 08:51 97.9 F 83 20 165/87 96 07/19/16 05:24 97.7 F 80 14 134/78 95 07/19/16 04:55 16 93 L Intake and Output 07/18/16 07/19/16 07/19/16 23:59 07:59 15:59 Intake Total 1240 / 1240 400 / 400 0 / 0 Output Total 200 / 200 130 / 130 Balance 1240 / 1240 200 / 200 -130 / -130 Intake: IV Fluids 1000 / 1000 KCl 20mEq IN D5%-0.45 1000 / 1000 NACL 20 meq In 1,000 ml @ 75 mls/hr IVC .[id number] [facility] Rx#:[id number] Oral 240 / 240 400 / 400 0 / 0 Output: Urine 200 / 200 130 / 130 Other: Meal Dinner NPO Percent of Meal Consumed 0% # Voids 1 Weight 68.22 kg Patient Weight 07/19/16 23:59 Weight 68.22 kg - General physical appearance no distress, chronically ill - Eyes normal ocular movement - ENT atraumatic, normocephalic - Neck Neck exam: trachea midline - Respiratory normal respiratory effort, clear to auscultation, other (diminished bibasilar bases) - Cardiovascular Cardiovascular exam: Present: RRR - Abdomen Abdomen: Present: bowel sounds present, soft, non tender - Neurologic CN 2-12 grossly intact - Psychiatric oriented to person, oriented to place - Labs 07/19/16 03:48 07/19/16 03:48 Diabetes panel 07/19/16 Range/Units 03:48 Sodium 133 L (136-145) mEq/L Potassium 3.8 (3.5-4.5) mEq/L Chloride 100 (98-109) mEq/L Carbon Dioxide 26 (19-29) mEq/L BUN 3 L (8-26) mg/dL Creatinine 0.65 L (0.72-1.25) mg/dL Glucose 120 H (70-99) mg/dL Calcium 8.9 (8.6-10.8) mg/dL Calcium panel 07/19/16 Range/Units 03:48 Calcium 8.9 (8.6-10.8) mg/dL Pituitary panel 07/19/16 Range/Units 03:48 Sodium 133 L (136-145) mEq/L Potassium 3.8 (3.5-4.5) mEq/L Chloride 100 (98-109) mEq/L Carbon Dioxide 26 (19-29) mEq/L BUN 3 L (8-26) mg/dL Creatinine 0.65 L (0.72-1.25) mg/dL Glucose 120 H (70-99) mg/dL Calcium 8.9 (8.6-10.8) mg/dL Adrenal panel 07/19/16 Range/Units 03:48 Sodium 133 L (136-145) mEq/L Potassium 3.8 (3.5-4.5) mEq/L Chloride 100 (98-109) mEq/L Carbon Dioxide 26 (19-29) mEq/L BUN 3 L (8-26) mg/dL Creatinine 0.65 L (0.72-1.25) mg/dL Glucose 120 H (70-99) mg/dL Calcium 8.9 (8.6-10.8) mg/dL - Stroke Reason for No Anticoagulant at DC: Medical contraindication - VTE Reasons for not Prescribing Prophylaxis: Medical contraindication Documentation of Mechanical Device: Graduated compression elastic hosiery Deep Vein Thrombosis/Pulmonary Embolism Present on Admission: No Consult Discharge Plan - Plan Referrals: NO,PCP [Primary Care Provider] - - Attending Attestation I examined this patient and my medical decision-making was reviewed with the ARMED CUSTOM PROTECTION OFFICER/PA/Advanced Practice Nurse/Resident Physician. I agree with the documented findings, disposition and treatment plan as described except to the extent set forth below. <Justa,Jian T - Last Filed: 07/19/16 14:52> Objective Vital Signs - Last 8 Hours Temp Pulse Resp BP Pulse Ox 07/19/16 11:39 16 95 07/19/16 11:32 97.9 F 84 12 133/75 96 07/19/16 08:51 97.9 F 83 20 165/87 96 Intake and Output 07/18/16 07/19/16 07/19/16 23:59 07:59 15:59 Intake Total 1240 / 1240 400 / 400 100 / 100 Output Total 200 / 200 220 / 220 Balance 1240 / 1240 200 / 200 -120 / -120 Intake: IV Fluids 1000 / 1000 100 / 100 KCl 20mEq IN D5%-0.45 1000 / 1000 100 / 100 NACL 20 meq In 1,000 ml @ 75 mls/hr IVC .[id number] [facility] Rx#:[id number] Oral 240 / 240 400 / 400 0 / 0 Output: Urine 200 / 200 220 / 220 Other: Meal Dinner NPO Percent of Meal Consumed 0% # Voids 1 Weight 68.22 kg Patient Weight 07/19/16 23:59 Weight 68.22 kg - Labs 07/19/16 03:48 07/19/16 03:48 Diabetes panel 07/19/16 Range/Units 03:48 Sodium 133 L (136-145) mEq/L Potassium 3.8 (3.5-4.5) mEq/L Chloride 100 (98-109) mEq/L Carbon Dioxide 26 (19-29) mEq/L BUN 3 L (8-26) mg/dL Creatinine 0.65 L (0.72-1.25) mg/dL Glucose 120 H (70-99) mg/dL Calcium 8.9 (8.6-10.8) mg/dL Calcium panel 07/19/16 Range/Units 03:48 Calcium 8.9 (8.6-10.8) mg/dL Pituitary panel 07/19/16 Range/Units 03:48 Sodium 133 L (136-145) mEq/L Potassium 3.8 (3.5-4.5) mEq/L Chloride 100 (98-109) mEq/L Carbon Dioxide 26 (19-29) mEq/L BUN 3 L (8-26) mg/dL Creatinine 0.65 L (0.72-1.25) mg/dL Glucose 120 H (70-99) mg/dL Calcium 8.9 (8.6-10.8) mg/dL Adrenal panel 07/19/16 Range/Units 03:48 Sodium 133 L (136-145) mEq/L Potassium 3.8 (3.5-4.5) mEq/L Chloride 100 (98-109) mEq/L Carbon Dioxide 26 (19-29) mEq/L BUN 3 L (8-26) mg/dL Creatinine 0.65 L (0.72-1.25) mg/dL Glucose 120 H (70-99) mg/dL Calcium 8.9 (8.6-10.8) mg/dL - Attending Attestation When I saw the patient this morning, he did not want to proceed with percutaneous endoscopic gastrostomy tube without talking to his power of attorney at law at noon. I think that this works out best. I do not want to proceed with a separate sedation or monitored anesthesia care procedure in addition to his head and neck biopsies because of risk to his jeopardized airway. I would much prefer to do this gastrostomy tube in conjunction with ENT biopsies to minimize the risk to his airway. We will be glad to proceed in conjunction with ENT staging procedure Jian Marr MD FACS
--- NOTE | 2016-07-19 13:11 | Oncology Inp Consult Note ---
<Reginaldo Carrasco Jr - Last Filed: 07/19/16 15:40> Date of Encounter: 07/19/16 Time of Encounter: 12:35 Assessment and Plan (1) Oropharyngeal cancer Status: Suspected Assessment and plan: The patient came from [facility]. He lives in the [facility]. I reviewed scans with Dr. Lizbeth Goldman, radiation oncologist, and Dr Ej Robbins, medical oncologist on the case. Patient is a Stage IVb head and neck cancer, 4.3cm infiltrative mass of right supraglottic region involving the tonsil. He has bulky tumor wrapped around right internal carotid artery. The patient's larynx is mostly destroyed due to disease burden once we looked at imaging. The patient and patient HC YANN, his best friend Ismael, agreed to biopsy, trach and PEG tube. I explained to patient that since there is no distant metastatic disease on CT scans, he has a curable cancer (50/50 odds). Oncology recommendations: 1. Immediate tracheostomy and PEG tube to secure airway and nutrition 2. Per NCCN Guidelines for Stage IVb cancer, laryngectomy would be completed first, then chemotherapy and radiation as an outpatient after surgical recovery. 3. Dr Goldman or Rosendo will touch base with Dr Bermudez about surgery recommendation, and any de-bulking of the area around right ICA. Because the patient lives 90 minutes away, patient and POA prefer chemo and radiation at a cancer center near their home. The patient, POA, and YANN's daughter verbalized understanding. Rah Sifuentes and Barbie Spicer of PC team present at the time of discussion, and understand our recommendations. Thank you for allowing us to participate in your patient's care. - Data of Consult Requesting Physician: Janiya Lin Primary Care Provider: PCP NO - Consult Narrative Reason for consult: Stage IVb head and neck cancer History of present illness: Mr. Conley is a 66 year old male that was transferred from outside health system for a suspected head and neck cancer. Patient lives in the [facility]. The patient's oncologic history this began with the patient was transferred to our facility on 07/18/2016. She has had enlarging neck mass, difficulty swallowing for several months. Patient's neck CT shows a large 4.3 infiltrative right supraglottic mass involving the tonsil which extends posteriorly to encase the right internal carotid artery. There is associated right level IIB jugulodigastric lymphadenopathy measuring 1.8 cm and 1.9 cm. These changes are compatible with a squamous cell carcinoma. The patient's head CT, chest CT, and abdomen pelvis CT showed no evidence of metastatic distant disease. The patient is a poor historian. The patient is a DO NOT RESUSCITATE Comfort Care arrest. He has consented to biopsy, PEG tube placement, and tracheostomy. Palliative care has been taking care of the patient for symptom management, as well as advanced directives and discharge placement. The patient wishes to have all surgical options done here at [facility], however, he lives 90 minutes away from our cancer center. He would require outpatient chemotherapy and radiation. This would be done another cancer center nearest to his home. Past Med Surg Social Fam HX - Past Medical History Medical history: CVA Psychiatric history: no psych history - Past Surgical History Surgical History: non-contributory, orthopedic, other (L knee surgery, L shoulder surgery ) - Social History Smoking Status: Current every day smoker Packs per day: 0.5 Smokeless Tobacco Status: No Alcohol use: occasionally Drug use: none Medications and Allergies Albuterol Sulfate [Albuterol Inhaler] 2 puff IH Q4HR PRN 07/17/16 [History] HYDROcodone/Acet 7.5/325 mg [[place] 7.5-325 mg] 1 - 2 tab PO Q4HR PRN 07/17/16 [ History] Magic Mouthwash 5 ml PO Q4H PRN 07/17/16 [History] Warfarin [Coumadin] 5 mg PO 1800 07/17/16 [History] Allergies No Known Allergies Allergy (Verified 07/17/16 13:52) All systems: reviewed and no additional remarkable complaints except as stated Constitutional: Present: fatigue, weight loss Nose, mouth and throat: Present: change in voice, dysphagia, mouth lesions, mouth pain, sore throat, throat swelling Respiratory: Present: dyspnea Oncology - Exam - Constitutional Vitals: Temp Pulse Resp BP Pulse Ox 97.9 F 84 16 133/75 95 07/19/16 11:32 07/19/16 11:32 07/19/16 11:39 07/19/16 11:32 07/19/16 11:39 General appearance: average body habitus, cooperative, no acute distress - Head Head exam: Present: atraumatic, normal inspection - Eye Eye exam: Present: normal appearance, PERRL - ENT ENT exam: Present: mucous membranes dry - Expanded ENT Exam Mouth exam: Present: drooling, dry mucosa, muffled voice, tongue elevation Teeth exam: Present: dental caries Throat exam: Present: R peritonsillar mass, post pharyngeal edema, post pharyngeal erythema, tonsillar erythema - Neck Neck exam: Present: tenderness (right neck, large mass around right IC artery) - Expanded Neck Exam Neck exam: Present: anterior neck swelling (right side), tenderness 1 - bulging and bulky nodes and soft tissue at tumor site - Respiratory Respiratory exam: Present: CTAB - Cardiovascular Cardiovascular exam: Present: RRR, +S1, +S2 - GI/Abdominal GI/Abdominal exam: Present: normal bowel sounds, soft - Extremities Exam Extremities exam: Present: full ROM, normal inspection - Neurological Exam Neurological exam: Present: alert, oriented X3, no focal deficits - Psychiatric Psychiatric exam: Present: flat affect - Skin Skin exam: Present: dry, intact, normal color Oncology - Results - Labs Labs: Short CBC 07/19/16 Range/Units 03:48 WBC 17.5 H (4.3-11.1) K/mcL Hgb 15.4 (12.9-16.9) g/dL Hct 45.3 (37.5-50.1) % Plt Count 309 (140-400) K/mcL Neutrophils # 11.9 H (1.6-8.9) K/mcL BMP 07/19/16 03:48 Sodium 133 L Potassium 3.8 Chloride 100 Carbon Dioxide 26 BUN 3 L Creatinine 0.65 L Glucose 120 H Calcium 8.9 Consult Discharge Plan - Plan Referrals: NO,PCP [Primary Care Provider] - - Attending Attestation I examined this patient and my medical decision-making was reviewed with the LEAD SECURITY OFFICER/PA/Advanced Practice Nurse/Resident Physician. I agree with the documented findings, disposition and treatment plan as described except to the extent set forth below. <Ej Robbins S - Last Filed: 07/22/16 14:28> - Data of Consult Requesting Physician: Jose Madrigal MD Primary Care Provider: PCP NO - Consult Narrative History of present illness: Mr. Conley is a 66 year old male Oncology - Exam - Constitutional Vitals: Temp Pulse Resp BP Pulse Ox 98.9 F 87 18 116/72 95 07/22/16 11:56 07/22/16 11:56 07/22/16 11:56 07/22/16 11:56 07/22/16 11:56 Oncology - Results - Labs Labs: Short CBC 07/22/16 Range/Units 04:50 WBC 17.3 H (4.3-11.1) K/mcL Hgb 15.6 (12.9-16.9) g/dL Hct 46.2 (37.5-50.1) % Plt Count 323 (140-400) K/mcL Neutrophils # 13.9 H (1.6-8.9) K/mcL BMP 07/22/16 04:50 Sodium 129 L Potassium 3.8 Chloride 93 L Carbon Dioxide 25 BUN 8 Creatinine 0.60 L Glucose 105 H Calcium 8.4 L
[2016-07-19] MEDS: *HR* OxyCODONE Immed Rel 15 MG TABLET PO PRN ×2 (13:25→17:31)
[2016-07-19] MEDS: D5% in 0.45% NACL w KCl 20 MEQ/1,000 ML MLS IVC SCH (13:25)
--- NOTE | 2016-07-19 13:49 | Palliative Progress Note ---
Date of Encounter: 07/19/16 Time of Encounter: 13:00 - Assessment and plan (1) Right facial pain Current Visit: Yes Status: Acute Assessment and plan: Will increase Oxycodone to 15mg and see if he gets better relief. If unable to take po, IV Morphine is also available. (2) Constipation Current Visit: Yes Status: Acute Assessment and plan: No BM x8 days. He refuses enema or suppository at this point, and would like tablets if small. Will continue Senokot and give dose Dulcolax today. Qualifiers: Qualified Code(s): K59.00 - Constipation, unspecified (3) Counseling regarding advanced care planning and goals of care Current Visit: Yes Status: Acute Assessment and plan: Long discussion with pt/friend at bedside, myself, and Jeferson TESFAYE. Patient completed power of business attorney naming friend Kirby as primary and Kirby's daughter as secondary. Copies provided to them as well. Shakir Carrasco PACKING MACHINE TENDER oncology and Janiya Sifuentes also present during this time. Discussed diagnosis and this may be a curable cancer. Patient agreeable to trach/PEG/laryngectomy, and eventually chemotherapy and radiation once recovered. SW addressed care following hospital stay and potential need for rehab. Patient desires [facility] in [place]. Shakir Carrasco discussed once treatment plan in place - transferring that care to oncologist closer to pt location as transportation is an issue. Patient and his POA do not drive. POA daughter provides all transportation for them. Readdressed code status after pt received this information and changed from DNRCC to DNRCC-Arrest. He understands that with surgery he may required temporary ventilatory support. He does not, however, desire CPR/defib for cardiac arrest. Will continue to follow (4) Dysphagia Current Visit: Yes Status: Acute Qualifiers: Qualified Code(s): R13.12 - Dysphagia, oropharyngeal phase (5) Neck mass Current Visit: Yes Status: Acute (6) Malnutrition Current Visit: Yes Status: Acute - Time Spent With Patient Total time spent is greater than 50% in coordination of care (as documented) at patient's floor/unit and/or counseling patient: Greater than 35 minutes - Subjective Interval history: Patient resting quietly - still c/o headache - states Oxycodone does help some. Having increased difficulty with swallowing and struggling with secretions. Friend, Ismael Moses and his daughter at bedside. - Constitutional Vitals: Abnormal lab results WBC 17.5 K/mcL (4.3-11.1) H 07/19/16 03:48 Neutrophils # 11.9 K/mcL (1.6-8.9) H 07/19/16 03:48 Monocytes # 1.6 K/mcL (0.0-1.3) H 07/19/16 03:48 Eosinophils # 1.1 K/mcL (0.0-0.6) H 07/19/16 03:48 PT 14.4 Seconds (9.4-12.1) H D 07/19/16 03:48 APTT 54.3 Seconds (26.0-36.0) H 07/18/16 03:40 Sodium 133 mEq/L (136-145) L 07/19/16 03:48 BUN 3 mg/dL (8-26) L 07/19/16 03:48 Creatinine 0.65 mg/dL (0.72-1.25) L 07/19/16 03:48 BUN/Creatinine Ratio 5 (6-26) L 07/19/16 03:48 Glucose 120 mg/dL (70-99) H 07/19/16 03:48 Calculated Osmolality 274 (280-300) L 07/19/16 03:48 Globulin 4.2 g/dL (2.4-3.5) H 07/17/16 14:21 Albumin/Globulin Ratio 0.9 (1.1-2.2) L 07/17/16 14:21 General appearance: Present: no acute distress - Neck Additional comments: Rt neck mass - Expanded Respiratory Exam Location: decreased breath sounds: Left, Right, Lower, rales: Right, Lower - Cardiovascular Cardiovascular exam: Present: +S1, +S2 - GI/Abdominal GI/Abdominal exam: Present: normal bowel sounds, soft - Extremities Exam Extremities exam: Present: normal capillary refill, normal inspection - Neurological Exam Neurological exam: Present: alert, oriented X3, strengths equal and symetr throughout - Skin Skin exam: Present: dry, warm Palliative Quality Palliative Quality: Screen for Code Status: Yes, Screen for Goals of Care: Yes, Screen for Pain: Yes, If Pain Regimen Started, Initiate Bowel Regimen: Yes, Screen for Nausea/Vomitting: Yes Code Status: 07/17/16 14:24 Resuscitation Status: Active [RES] Routine Comment: Resuscitation Status: Full Code 07/18/16 08:55 CODE [Resuscitation Status: Active] [RES] Routine Comment: per discussion with patient this am Resuscitation Status: DNR-Comfort Care 07/19/16 12:51 DNR [Resuscitation Status: Active] [RES] Routine Comment: Resuscitation Status: DNR-Comfort Care-Arrest - Labs CBC & Chem 7: 07/19/16 03:48 07/19/16 03:48 Labs: Laboratory Results - last 24 hr 07/18/16 07/19/16 07/19/16 12:49 03:48 03:48 WBC 17.5 H RBC 5.24 Hgb 15.4 Hct 45.3 MCV 86.5 MCH 29.4 MCHC 34.0 RDW 13.6 Plt Count 309 MPV 10.0 Immature Gran % 0.4 Seg Neutrophils % 67.8 Lymphocytes % 15.7 Monocytes % 9.3 Eosinophils % 6.0 Basophils % 0.8 Neutrophils # 11.9 H Lymphocytes # 2.8 Monocytes # 1.6 H Eosinophils # 1.1 H Basophils # 0.1 PT 34.0 H 14.4 H D INR 3.0 1.3 D Sodium Potassium Chloride Carbon Dioxide BUN Creatinine Est GFR ( Amer) Est GFR (Non-Af Amer) BUN/Creatinine Ratio Glucose Calculated Osmolality Calcium Magnesium 07/19/16 03:48 WBC RBC Hgb Hct MCV MCH MCHC RDW Plt Count MPV Immature Gran % Seg Neutrophils % Lymphocytes % Monocytes % Eosinophils % Basophils % Neutrophils # Lymphocytes # Monocytes # Eosinophils # Basophils # PT INR Sodium 133 L Potassium 3.8 Chloride 100 Carbon Dioxide 26 BUN 3 L Creatinine 0.65 L Est GFR ( Amer) > 60 Est GFR (Non-Af Amer) > 60 BUN/Creatinine Ratio 5 L Glucose 120 H Calculated Osmolality 274 L Calcium 8.9 Magnesium 1.6 - ABG Interpretation ABG results: PT/INR, D-dimer PT 14.4 Seconds (9.4-12.1) H D 07/19/16 03:48 Consult Discharge Plan - Plan Referrals: NO,PCP [Primary Care Provider] -
--- NOTE | 2016-07-19 16:24 | RAD Oncology Progress Note ---
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 Conley presents with dysphagia, odynophagia, and hoarseness for the past 6- 12 months. He also has weight loss and pain his his neck. He has a right- sided neck mass and supraglottic laryngeal mass on CT scanning. ENT has evaluated the patient and from his scans feel that he is unresectable secondary to prevertebral space invasion and involvement of lymph nodes encasing the carotid artery. Mr. Conley has a POA who is making his healthcare decisions. Mr. Conley has te 4.3 cm supraglottic primary involving the tonsil as well as involvement of the right internal carotid artery. There is associated right level II adenopathy as well. There is mild narrowing of the supraglottic airway which is displaced to the left. History - Family History Family History: non-contributory, other family history - Social History Smoking Status: Current every day smoker Smokeless Tobacco Status: No Alcohol Use: occasionally Drug use: none - Surgical History Surgical History Notes: left knee and left shoulder surgeries Oncology - Medications Albuterol Sulfate [Albuterol Inhaler] 2 puff IH Q4HR PRN 07/17/16 [History] HYDROcodone/Acet 7.5/325 mg [[place] 7.5-325 mg] 1 - 2 tab PO Q4HR PRN 07/17/16 [ History] Magic Mouthwash 5 ml PO Q4H PRN 07/17/16 [History] Warfarin [Coumadin] 5 mg PO 1800 07/17/16 [History] Allergies No Known Allergies Allergy (Verified 07/17/16 13:52) Review of Systems - Exam Provider Comments:: General NO FEVER, NO CHILLS, NO SWELLING, YES WEIGHT LOSS, NO Weight gain, YES LOSS OF APPETITE, YES FATIGUE Activity level: Low. Skin: YES SKIN LESIONS, NO PETECHIAE, NO RASH, NO ITCHING HEENT: NO VISUAL PROBLEMS, NO HEARING PROBLEMS, NO HEADACHE, NO ORAL LESIONS, YES DYSPHAGIA, YES SORE THROAT, YES EAR ACHE/DRAINAGE Cardio/Pulmonary: NO PALPITATIONS, NO CHEST PAIN, YES COUGH/COUGH UP BLOOD, YES SHORTNESS OF BREATH GI: NO ABDOMINAL PAIN, NO NAUSEA, NO VOMITING, NO HEMATEMESIS, NO HISTORY OF JAUNDICE, NO HEART BURN, NO DIARRHEA, NO CONSTIPATION : NO DYSURIA, NO HEMATURIA Genital: NO HOT FLASH Neuro/Psychiatric: NO HEADACHE, NO SEIZURES, NO SYNCOPE, NO STROKE, NO DIZZINESS, NO PARESTHESIAS, NO NUMBNESS OR TINGLING Endocrine/Diabetes: NO DIABETES, NO THYROID Immunologic/Allergic: NO INFECTIONS, NO ALLERGIES HEME: YES ENLARGED LYMPH NODES, NO BLEEDING, NO CLOTTING DIFFICULTIES, NO EASY BRUISING OR BLEEDING ONCOLOGY MUSCULOSKELETAL NO JOINT PAIN, NO SWELLING, NO BONY PAIN, NO DIFFICULTY WALKING, YES MUSCLE PAIN OR WEAKNESS Physical Exam - Vitals Vital Signs: Last Vital Signs Temp 97.9 F 07/19/16 15:52 Pulse 90 07/19/16 15:52 Resp 16 07/19/16 15:52 BP 151/86 07/19/16 15:52 Pulse Ox 90 L 07/19/16 15:52 Weight: 68.22 kg ECO - Consciousness/Orientation Level Of Consciousness: Awake, Alert, Appropriate Patient Orientation: Person, Place, Time Physical Exam: GENERAL: Alert and oriented, well appearing. Mental Status: Affect appropriate for circumstances HEENT: Sclerae anicteric. No mucositis or thrush. Hoarseness and dysphagia noted. Base of tongue soft. Skin: No rashes or petechiae. No evidence of skin malignancy Lymph nodes: Right cervical and supraclaviculary adenopathy. No axillary, or inguinal adenopathy. Lungs: Clear to auscultation and percussion bilaterally. Cardiovascular: Regular rate and rhythm. No gallops, murmurs, or rubs. Abdomen: Soft, nontender; no organomegaly or masses palpable. Extremities: No edema. No calf swelling or tenderness. No joint deformity. Neurologic: Alert, cranial nerves II-XII intact; normal gait; no focal weakness or sensory abnormalities. Oncology- Results - Labs Labs: Short CBC 07/19/16 Range/Units 03:48 WBC 17.5 H (4.3-11.1) K/mcL Hgb 15.4 (12.9-16.9) g/dL Hct 45.3 (37.5-50.1) % Plt Count 309 (140-400) K/mcL Neutrophils # 11.9 H (1.6-8.9) K/mcL BMP 07/19/16 03:48 Sodium 133 L Potassium 3.8 Chloride 100 Carbon Dioxide 26 BUN 3 L Creatinine 0.65 L Glucose 120 H Calcium 8.9 - Diagnostic Studies CT scans of the neck and chest were personally reviewed. This appears to be a right-sided [id number] supraglottic laryngeal cancer. - Assessment Assessment: After discussion with Dr. Bermudez of ENT, this is an unresectable case of supraglottic laryngeal cancer secondary to prevertebral space invasion as as well as encasement of the carotid on the right side. There are no lung metastases, so this is technically curable disease. However, without surgical resection, cure rates are much less. Patient will have long-term difficulty protecting his airway if this tumor responds to treatment. If he is to pursue any curative or palliative treatment, he will require a tracheostomy and PEG tube placement. 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 Without palliative treatment of any kind, swallowing and breathing will become increasingly more difficult and quality of life will be poor. Radiation and chemotherapy come with many life altering side effects including xerostomia, potentially worsened dysphagia, throat pain, and fatigue as well as skin desquamation. Patient lives in [place] and daily radiation treatment will be difficult logistically for him. Patient expressed his wishes to me as to be as aggressive as possible with therapy. However, conversation needs to be held with power of defense attorney. I recommend tracheostomy and PEG tube placement with treatment decision deferred to discussion with POA. I will continue to follow this patient. Typically, I recommend aggresive care with either chemotherapy induction or chemoradiation in these unresectable patients. Thank you for allowing me to participate in his care. Sincerely, Paul Goldman MD, DABR Radiation Oncology [facility]
--- NOTE | 2016-07-19 17:17 | Event Note ---
Date of Encounter: 07/19/16 Time of Encounter: 17:[address] Goldman, regarding the patient's tumor not being resectable. I called the patient's HCPOA, Ismael ([phone]), and told him about the conversation between Dr Bermudez and Dr. Goldman. Because the patient's difficulty in making decisions, I called the POA. I spoke to Ismael at length about the new treatment plans and odds of long-term survival decreasing from 50%, to 10-30%. POA in agreement with aggressive treatment, which was also patient's wishes. We will continue to follow.
--- NOTE | 2016-07-19 18:14 | Event Note ---
Date of Encounter: 07/19/16 Time of Encounter: 18:00 I have spoken to the Oncology/Rad Onc team as well as Mr. Conley's POA and Mr. Griffiths. I explained to all of them that I don't perceive this disease to be resectable. It is completely encasing the carotid artery and the prevertebral musculature. I think the prudent thing to do right now is to continue with advanced disease management per the NCCN guidelines. I explained to the patient that given his speech and swallowing issues at present time I think he absolutely needs a PEG and that I highly recommended a trach placement. His POA agreed to this and Mr. Conley agreed along with this. Consent was obtained. Plan is to go to the OR on 07/20 in the AM for laryngoscopy, esophagoscopy, bronchoscopy, biopsies and trach placement. Risks/benefits/ alternatives discussed. Will make sure INR is still 1.3 or less. Drawing new lab now. Pathology notified and he is on the OR schedule with Dr. Modi and myself.
[2016-07-19 18:17] LABS: INR 1.2; Prothrombin Time 13.1 Seconds (9.4-12.1)
[2016-07-19] MEDS: *HR* OxyCODONE Immed Rel 15 MG TABLET PO SCH ×2 (19:55→23:57)
[2016-07-20 03:35] LABS: Basophils # 0.1 K/mcL (0.0-0.2); Basophils % 0.7 %; Eosinophils # 0.7 K/mcL (0.0-0.6); Eosinophils % 3.4 %; Hematocrit 44.5 % (37.5-50.1); Hemoglobin 14.7 g/dL (12.9-16.9); Immature Granulocytes % 0.5 % (0-4); Lymphocytes # 2.8 K/mcL (0.6-4.6); Lymphocytes % 13.8 %; Mean Corpuscular Hemoglobin 29.7 pg (28.0-33.3); Mean Corpuscular Volume 89.9 fL (83.0-100.0); Mean Platelet Volume 10.4 fL (9.4-12.4); Monocytes # 1.7 K/mcL (0.0-1.3); Monocytes % 8.4 %; Neutrophils # 14.6 K/mcL (1.6-8.9); Platelet Count 291 K/mcL (140-400); Red Blood Count 4.95 M/mcL (4.19-5.50); Red Cell Distribution Width 13.8 % (11.5-14.5); Segmented Neutrophils % 73.2 %
[2016-07-20 03:40] LABS: INR 1.2; Prothrombin Time 13.5 Seconds (9.4-12.1)
[2016-07-20 03:58] LABS: BUN/Creatinine Ratio 7 (6-26); Calcium 8.7 mg/dL (8.6-10.8); Carbon Dioxide 24 mEq/L (19-29); Chloride 99 mEq/L (98-109); Glucose 106 mg/dL (70-99); Magnesium 1.3 mg/dL (1.6-2.6); Osmolality,Calculated 274 (280-300); Potassium 4.4 mEq/L (3.5-4.5); Sodium 133 mEq/L (136-145); eGFR For African Americans > 60 (> 60); eGFR For Non-African Americans > 60 (> 60)
[2016-07-20 03:59] LABS: Blood Urea Nitrogen 5 mg/dL (8-26)
[2016-07-20] MEDS: *HR* OxyCODONE Immed Rel 15 MG TABLET PO SCH ×5 (05:12→23:15)
[2016-07-20] MEDS: D5% in 0.45% NACL w KCl 20 MEQ/1,000 ML MLS IVC SCH (05:14)
[2016-07-20] MEDS: *HR* Morphine 2 MG/ML SYRINGE IVP PRN ×2 (08:25→16:33)
[2016-07-20] MEDS: Piperacillin/Tazobactam 3.375 GM in D5% in Water (Mini-Bag+) 100 ML IVPB SCH ×3 (08:25→23:16)
[2016-07-20] MEDS: amLODIPine 5 MG TABLET PO SCH (08:33)
[2016-07-20] MEDS: Magic Mouthwash 10 ML UD Cup PO SCH ×3 (08:33→19:56)
[2016-07-20] MEDS: Sennosides/Docusate Sodium TABLET PO SCH ×2 (08:33→20:03)
--- NOTE | 2016-07-20 09:20 | ENT - Progress Note ---
Date of Encounter: 07/20/16 Time of Encounter: 08:15 - Assessment and Plan (1) Oropharyngeal cancer Current Visit: Yes Status: Suspected Suspected R oropharyngeal cancer, Stage IV and unresectable disease (completely encasing the ICU and invading the pre-vertebral musculature. Plan is for trach/ PEG/triple endo/bx today w/ Frozen path to confirm. Has rising white count but doesn't complain of pain on urination, abdominal pain, chest pain, dyspnea, chills and has been afebrile. Was started on Zosyn prophylactically, which we can leave running as he goes to the OR. INR 1.2. 1. Plan for OR today - PEG, Triple endoscopy and biopsy, trach placement 2. 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 Michele Bermudez MD Subjective Patient reports: no new complaints (unchanged from yesterday. Swallowing continues to be a problem. Has been NPO since midnight.) Objective Initial Vital Signs Temp Pulse Resp BP Pulse Ox 97.5 F L 88 17 179/97 97 07/17/16 13:50 07/17/16 13:50 07/17/16 13:50 07/17/16 13:50 07/17/16 13:50 - General physical appearance chronically ill - Eyes other (R ptosis) Eyes: right Eye exam: ptosis - ENT Other (unchanged from previous, R tonsillar mass extending to the uvula) - Labs 07/20/16 02:22 07/20/16 02:22 Diabetes panel 07/20/16 Range/Units 02:22 Sodium 133 L (136-145) mEq/L Potassium 4.4 (3.5-4.5) mEq/L Chloride 99 (98-109) mEq/L Carbon Dioxide 24 (19-29) mEq/L BUN 5 L (8-26) mg/dL Creatinine 0.74 (0.72-1.25) mg/dL Glucose 106 H (70-99) mg/dL Calcium 8.7 (8.6-10.8) mg/dL Calcium panel 07/20/16 Range/Units 02:22 Calcium 8.7 (8.6-10.8) mg/dL Pituitary panel 07/20/16 Range/Units 02:22 Sodium 133 L (136-145) mEq/L Potassium 4.4 (3.5-4.5) mEq/L Chloride 99 (98-109) mEq/L Carbon Dioxide 24 (19-29) mEq/L BUN 5 L (8-26) mg/dL Creatinine 0.74 (0.72-1.25) mg/dL Glucose 106 H (70-99) mg/dL Calcium 8.7 (8.6-10.8) mg/dL Adrenal panel 07/20/16 Range/Units 02:22 Sodium 133 L (136-145) mEq/L Potassium 4.4 (3.5-4.5) mEq/L Chloride 99 (98-109) mEq/L Carbon Dioxide 24 (19-29) mEq/L BUN 5 L (8-26) mg/dL Creatinine 0.74 (0.72-1.25) mg/dL Glucose 106 H (70-99) mg/dL Calcium 8.7 (8.6-10.8) mg/dL - Stroke Reason for No Anticoagulant at DC: Medical contraindication - VTE Reasons for not Prescribing Prophylaxis: Medical contraindication Documentation of Mechanical Device: Graduated compression elastic hosiery Deep Vein Thrombosis/Pulmonary Embolism Present on Admission: No Consult Discharge Plan - Plan Referrals: NO,PCP [Primary Care Provider] -
[2016-07-20] MEDS ORDERED: Dexmedetomidine HCl 200 MCG/50 ML MLS IVC ONE (10:57)
[2016-07-20] MEDS ORDERED: Lidocaine -MPF 4% 5 ML AMPUL ONE ×2 (11:02→11:06)
[2016-07-20] MEDS ORDERED: *HR* Succinylcholine 200 MG/10 ML VIAL IVP ONE (11:02)
[2016-07-20] MEDS ORDERED: Lidocaine -MPF 2% 2 ML VIAL ONE ×2 (11:02→11:04)
[2016-07-20] MEDS ORDERED: *HR* FentaNYL (PF) 100 MCG/2 ML VIAL ONE (11:03)
[2016-07-20] MEDS ORDERED: *HR* Midazolam HCl 5 MG/5 ML VIAL IVP ONE (11:03)
[2016-07-20] MEDS ORDERED: *HR* Propofol 200 MG/20 ML VIAL IVP ONE (11:04)
[2016-07-20] MEDS ORDERED: *HR* Magnesium Sulfate 1 GM/2 ML VIAL ONE (11:06)
[2016-07-20] MEDS ORDERED: Lidocaine OINT 35.44 GM TUBE TP ONE (11:10)
[2016-07-20] MEDS ORDERED: Ipratropium/Albuterol Neb 3 ML ONE (11:24)
[2016-07-20] MEDS ORDERED: *HR* Phenylephrine 10 MG/ML VIAL ONE (11:57)
[2016-07-20] MEDS ORDERED: *HR* EPINEPHrine 30 MG/30 ML MDV ONE (11:59)
[2016-07-20] MEDS ORDERED: Lidocaine/EPI 1:100k 1% 20 ML VIAL ONE (12:02)
[2016-07-20] MEDS ORDERED: Dexamethasone 4 MG/ML VIAL ONE (12:45)
[2016-07-20] MEDS ORDERED: Ondansetron 4 MG/2 ML VIAL ONE (12:45)
[2016-07-20] MEDS ORDERED: EPHEDrine 50 MG/ML VIAL ONE (12:49)
[2016-07-20] MEDS ORDERED: Acetaminophen IV 1,000 MG/100 ML INFUS..BTL ONE (13:45)
--- NOTE | 2016-07-20 14:05 | ENT - Procedure Note ---
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 Bronchoscopy 2. Laryngoscopy with biopsies 3. Tracheostomy tube placement Pre-op Diagnosis: Right oropharyngeal squamous cell carcinoma (tonsil) Post-op Diagnosis: Same Findings: Negative bronch, no other H&N primary identified, large R tonsil mass with frozen analysis showing invasive squamous cell carcinoma Anesthesia: GETA Complications: None EBL: 5ml Surgeon: Michele Bermudez MD History: Mr. Conley is a 66 year-old gentleman who came to the ENT clinic earlier in the week with suspected right oropharyngeal cancer and poor nutrition. He was admitted where his INR was corrected and surgery was planned. He had a staging workup in the hospital which showed the disease encasing the internal carotid artery on the right and prevertebral musculature. It partially communicated with metastatic neck disease on the right, which looked poorly contained. There was no evidence of distant metastasis. As the disease was starting to significantly affect his swallowing and to some degree breathing we discussed with his power of district attorney placing a feeding tube, looking around his airway/esophagus, doing biopsies, and securing his airway with a tracheostomy tube. They both agreed to this treatment plan and consented to the procedures. Operative Report: On 07/20/16 Mr. Jason Conley was brought to the operating room and laid in a supine position on the operating table. He was intubated with fiberoptic intubation by anesthesia. Once the airway was secured a time- out procedure was performed. General surgery then performed the PEG tube placement. During this they examined the esophagus. Briefly, there were no concerning lesions indicative of cancer, but there was significant reflux change. After General Surgery had concluded their procedure the patient was turned 90 degrees in a [id number] fashion. I started by examining the trachea and bronchi. I advanced the bronchoscope to the glottic larynx and suctioned all secretions. I advanced this into his airway and had Anesthesia take down the cuff. Once down I advanced the bronchoscope into the trachea and inspected it for any lesions. None were noted. I inspected the right and left mainstem bronchi which also did not have any lesion. I removed the bronchoscope, securing the endotracheal tube. The cuff was re-inflated. I then performed the laryngoscopy. I inspected all areas of the oral cavity, oropharynx, hypopharynx and larynx. No lesions were noted other than the hardened, friable mass of the right tonsil. I then performed biopsies for frozen analysis and another for permanent analysis and HPV testing. I removed the laryngoscope. Frozen analysis came back as invasive squamous cell carcinoma. The patient was then turned back to the original position and had his arms tucked and padded. The neck was already in good extension, which was very limited. The planned incision was injected with 1% lidocaine with 1:100,000 epinephrine. The neck was then prepped and draped in sterile fashion. In incised through the planned incision down to the strap muscles. I dissected in the midline and the straps with retractors. I dissected to the cricoid cartilage and developed a plane under the thyroid gland. I then the isthmus of the thyroid with a bovie and cleaned off the anterior tracheal wall. A cricoid hook was placed and Anesthesia mobilized the endotracheal tube. I incised through the second to third tracheal ring interspace and created a Jaida flap, which was secured to the tissue under the skin. I spread the tracheotomy site. The endotracheal tube was slowly removed and I suctioned the distal airway. The 6-0 cuffed Shiley tracheostomy tube had been tested and was then placed in the airway. The cuff was inflated and the anesthesia circuit was attached. He had good pressures and volumes. The cricoid hook was then removed. The trach was secured with 4 2-0 interrupted silk sutures and trach straps. The patient was then weaned from anesthesia and transferred to his bed and PACU in a stable manner. He tolerated the procedure well without any complications. I performed the entire procedure myself. Implants: Tracheostomy tube placement Anesthesia: local Surgeon: Michele Bermudez Estimated blood loss (cc): 5 Condition: stable
[2016-07-20] MEDS ORDERED: *HR* HYDROmorphone 2 MG/ML SYRINGE ONE (14:11)
[2016-07-20] MEDS: *HR* HYDROmorphone (PF) 1 MG/ML SYRINGE IVP PRN ×3 (14:13→14:35)
--- NOTE | 2016-07-20 15:06 | Anesthesia Evaluation Post Op ---
Date of Encounter: 07/20/16 Time of Encounter: 15:04 - Vital Signs Vital Signs: Vital Signs/O2 Sat/Glucose, Most Current Temp Pulse Resp BP Pulse Ox 07/20/16 14:52 97.7 F 75 12 116/61 97 07/20/16 14:42 73 12 111/64 97 07/20/16 14:32 97.7 F 73 12 108/68 96 07/20/16 14:22 75 12 107/65 97 07/20/16 14:12 71 12 109/69 97 07/20/16 14:02 98.1 F 78 12 120/76 99 - Lungs Lungs: Wheezes (FAint wheezes/rhonchi as per baseline), Rhonchi - Airway Airway: Non-obstructed (Trach) - Cardiovascular Regular Rate - Mental Status Mental Status: Alert & Oriented, Answers Appropriately - Pain Pain Scale: 1 Pain Scale used: Doan-Grijalva (Faces) - Nausea Vomiting Nausea Vomiting: Not Present - Hydration Hydration: NPO, Has not voided - Discharge PostOp Status: Discharge Patient to home Anes Supervising Prov Stmt: Pt seen/evaluated, VSS And pt has met criteria for discharge to floor. - MD Cheng
--- NOTE | 2016-07-20 15:11 | Internal Med Progress Note ---
Date of Encounter: 07/20/16 Time of Encounter: 08:25 - Assessment and plan (1) Oropharyngeal cancer Current Visit: Yes Status: Suspected Assessment and plan: Patient taken for surgery today. Tracheostomy and PEG tube placed. ENT and surgery following. Pathology shows squamous cell carcinoma. We will arrange for follow-up with oncology after discharge. (2) HTN (hypertension) Current Visit: Yes Status: Chronic Assessment and plan: Well-controlled. Qualifiers: Hypertension type: essential hypertension Qualified Code(s): I10 - Essential (primary) hypertension (3) Leukocytosis Current Visit: Yes Status: Acute Assessment and plan: Patient having cytosis that is worsening. Will start patient on empiric antibiotics. Send blood for culture. Qualifiers: Leukocytosis type: leukemoid reaction Qualified Code(s): D72.823 - Leukemoid reaction (4) Protein-calorie malnutrition, severe Current Visit: Yes Status: Acute Assessment and plan: Nutrition consulted. A PEG tube has been placed. Will start tube feeds (5) Supratherapeutic INR Current Visit: Yes Status: Resolved (6) Tobacco abuse Current Visit: Yes Status: Chronic Assessment and plan: Patient has history of chronic tobacco abuse. He does have wheezing on today's examination. Will start him on nebulizer treatments. Have underlying COPD/ reactive airway disease. - Subjective Interval history: Was awaiting surgery this morning. No acute complaints at this time. No shortness of breath. No fever or chills or night sweats overnight. No pain while passing urine. No cough or sputum production. - Constitutional Vitals: Temp Pulse Resp BP Pulse Ox 98.6 F 75 16 109/63 95 07/20/16 15:00 07/20/16 15:00 07/20/16 15:00 07/20/16 15:00 07/20/16 15:00 General appearance: Present: cooperative, A&O X 3, pleasant, no acute distress, answers questions appropriately - Head Head exam: Present: atraumatic, normocephalic - ENT Additional comments: Right peritonsillar mass present, soft voice. - Neck Neck exam general surgery: Present: lymphadenopathy (Cervical), trachea midline - Respiratory Respiratory exam: Present: prolonged expiratory phase, wheezes. Absent: accessory muscle use, rales, rhonchi - Cardiovascular Cardiovascular exam: Present: RRR, +S1, +S2. Absent: diastolic murmur, gallop, rubs, systolic murmur - Extremities Exam Extremities exam: Present: warm, radial pulses palpable and symetrical. Absent : calf tenderness, cyanotic, pedal edema - Neurological Exam Neurological exam: Present: alert, oriented X3, no focal deficits. Absent: facial droop, speech deficit - Skin Skin exam: Present: dry, intact Internal Medicine: Result - Labs CBC & Chem 7: 07/20/16 02:22 07/20/16 02:22 Labs: Short CBC 07/20/16 Range/Units 02:22 WBC 20.0 H (4.3-11.1) K/mcL Hgb 14.7 (12.9-16.9) g/dL Hct 44.5 (37.5-50.1) % Plt Count 291 (140-400) K/mcL Neutrophils # 14.6 H (1.6-8.9) K/mcL BMP 07/20/16 02:22 Sodium 133 L Potassium 4.4 Chloride 99 Carbon Dioxide 24 BUN 5 L Creatinine 0.74 Glucose 106 H Calcium 8.7 - ABG Interpretation ABG results: PT/INR, D-dimer PT 13.5 Seconds (9.4-12.1) H 07/20/16 02:22 - Impressions Impressions Chest X-Ray 07/20/16 14:25 IMPRESSION: No evidence of pneumothorax status post tracheostomy placement. D/ / Magnus Woodward MD / Magnus Woodward MD Interpreting Provider: Magnus Woodward MD - Stroke Reason for No Anticoagulant at DC: Medical contraindication - VTE Reasons for not Prescribing Prophylaxis: Medical contraindication Documentation of Mechanical Device: Graduated compression elastic hosiery Deep Vein Thrombosis/Pulmonary Embolism Present on Admission: No Consult Discharge Plan - Plan Referrals: NO,PCP [Primary Care Provider] - - Attending Attestation This document has been at least partially created by [employer] recognition technology by Dr. Madrigal. Errors in grammar, wording or other phrases may exist. If errors are found after the documentation is signed, they will be addressed individually in the addendum section of this document when appropriate. Medical Decision Making - MDM Narrative Medical decision making narrative: High risk for complications - Medical Records Medical records reviewed: Yes I reviewed the patient's medical records. - Lab Data Lab results reviewed: Yes I reviewed the patient's lab results. Result diagrams: 07/20/16 02:22 07/20/16 02:22 Lab Results 07/17/16 07/17/16 07/17/16 Range/Units 14:21 14:21 14:21 WBC 9.1 (4.3-11.1) K/mcL RBC 6.05 H (4.19-5.50) M/mcL Hgb 17.4 H (12.9-16.9) g/dL Hct 52.4 H (37.5-50.1) % MCV 86.6 (83.0-100.0) fL MCH 28.8 (28.0-33.3) pg MCHC 33.2 (31.6-35.5) g/dL RDW 13.5 (11.5-14.5) % Plt Count 382 (140-400) K/mcL MPV 9.7 (9.4-12.4) fL Immature Gran % 0.3 (0-4) % Seg Neutrophils % 45.7 % Lymphocytes % 27.6 % Monocytes % 7.7 % Eosinophils % 17.6 % Basophils % 1.1 % Neutrophils # 4.1 (1.6-8.9) K/mcL Lymphocytes # 2.5 (0.6-4.6) K/mcL Monocytes # 0.7 (0.0-1.3) K/mcL Eosinophils # 1.6 H (0.0-0.6) K/mcL Basophils # 0.1 (0.0-0.2) K/mcL PT 80.7 H* (9.4-12.1) Seconds INR 7.0 H* APTT 100.2 H (26.0-36.0) Seconds Sodium (136-145) mEq/L Potassium (3.5-4.5) mEq/L Chloride (98-109) mEq/L Carbon Dioxide (19-29) mEq/L BUN (8-26) mg/dL Creatinine (0.72-1.25) mg/dL Est GFR ( Amer) (> 60) Est GFR (Non-Af Amer) (> 60) BUN/Creatinine Ratio (6-26) Glucose (70-99) mg/dL Calculated Osmolality (280-300) Calcium (8.6-10.8) mg/dL Magnesium (1.6-2.6) mg/dL Total Bilirubin (0.2-1.2) mg/dL AST (5-34) Units/L ALT (0-55) Units/L Alkaline Phosphatase (38-126) Units/L Serum Total Protein (6.0-8.3) g/dL Albumin (3.5-5.0) g/dL Globulin (2.4-3.5) g/dL Albumin/Globulin Ratio (1.1-2.2) Blood Type O POSITIVE Antibody Screen NEGATIVE 07/17/16 07/18/16 07/18/16 Range/Units 14:21 03:40 03:40 WBC 13.0 H (4.3-11.1) K/mcL RBC 5.42 (4.19-5.50) M/mcL Hgb 15.9 D (12.9-16.9) g/dL Hct 46.4 (37.5-50.1) % MCV 85.6 (83.0-100.0) fL MCH 29.3 (28.0-33.3) pg MCHC 34.3 (31.6-35.5) g/dL RDW 13.4 (11.5-14.5) % Plt Count 321 (140-400) K/mcL MPV 10.1 (9.4-12.4) fL Immature Gran % 0.3 (0-4) % Seg Neutrophils % 61.8 % Lymphocytes % 14.4 % Monocytes % 9.1 % Eosinophils % 13.6 % Basophils % 0.8 % Neutrophils # 8.0 (1.6-8.9) K/mcL Lymphocytes # 1.9 (0.6-4.6) K/mcL Monocytes # 1.2 (0.0-1.3) K/mcL Eosinophils # 1.8 H (0.0-0.6) K/mcL Basophils # 0.1 (0.0-0.2) K/mcL PT 28.5 H D (9.4-12.1) Seconds INR 2.6 D APTT 54.3 H (26.0-36.0) Seconds Sodium 134 L (136-145) mEq/L Potassium 4.1 (3.5-4.5) mEq/L Chloride 97 L (98-109) mEq/L Carbon Dioxide 24 (19-29) mEq/L BUN 8 (8-26) mg/dL Creatinine 0.81 (0.72-1.25) mg/dL Est GFR ( Amer) > 60 (> 60) Est GFR (Non-Af Amer) > 60 (> 60) BUN/Creatinine Ratio 10 (6-26) Glucose 97 (70-99) mg/dL Calculated Osmolality 276 L (280-300) Calcium 9.4 (8.6-10.8) mg/dL Magnesium (1.6-2.6) mg/dL Total Bilirubin 0.5 (0.2-1.2) mg/dL AST 21 (5-34) Units/L ALT 21 (0-55) Units/L Alkaline Phosphatase 113 (38-126) Units/L Serum Total Protein 8.0 (6.0-8.3) g/dL Albumin 3.8 (3.5-5.0) g/dL Globulin 4.2 H (2.4-3.5) g/dL Albumin/Globulin Ratio 0.9 L (1.1-2.2) Blood Type Antibody Screen 07/18/16 07/18/16 07/19/16 Range/Units 03:40 12:49 03:48 WBC 17.5 H (4.3-11.1) K/mcL RBC 5.24 (4.19-5.50) M/mcL Hgb 15.4 (12.9-16.9) g/dL Hct 45.3 (37.5-50.1) % MCV 86.5 (83.0-100.0) fL MCH 29.4 (28.0-33.3) pg MCHC 34.0 (31.6-35.5) g/dL RDW 13.6 (11.5-14.5) % Plt Count 309 (140-400) K/mcL MPV 10.0 (9.4-12.4) fL Immature Gran % 0.4 (0-4) % Seg Neutrophils % 67.8 % Lymphocytes % 15.7 % Monocytes % 9.3 % Eosinophils % 6.0 % Basophils % 0.8 % Neutrophils # 11.9 H (1.6-8.9) K/mcL Lymphocytes # 2.8 (0.6-4.6) K/mcL Monocytes # 1.6 H (0.0-1.3) K/mcL Eosinophils # 1.1 H (0.0-0.6) K/mcL Basophils # 0.1 (0.0-0.2) K/mcL PT 34.0 H (9.4-12.1) Seconds INR 3.0 APTT (26.0-36.0) Seconds Sodium 135 L (136-145) mEq/L Potassium 3.4 L (3.5-4.5) mEq/L Chloride 100 (98-109) mEq/L Carbon Dioxide 24 (19-29) mEq/L BUN 5 L (8-26) mg/dL Creatinine 0.65 L (0.72-1.25) mg/dL Est GFR ( Amer) > 60 (> 60) Est GFR (Non-Af Amer) > 60 (> 60) BUN/Creatinine Ratio 8 (6-26) Glucose 125 H (70-99) mg/dL Calculated Osmolality 279 L (280-300) Calcium 8.9 (8.6-10.8) mg/dL Magnesium (1.6-2.6) mg/dL Total Bilirubin (0.2-1.2) mg/dL AST (5-34) Units/L ALT (0-55) Units/L Alkaline Phosphatase (38-126) Units/L Serum Total Protein (6.0-8.3) g/dL Albumin (3.5-5.0) g/dL Globulin (2.4-3.5) g/dL Albumin/Globulin Ratio (1.1-2.2) Blood Type Antibody Screen 07/19/16 07/19/16 07/19/16 Range/Units 03:48 03:48 18:05 WBC (4.3-11.1) K/mcL RBC (4.19-5.50) M/mcL Hgb (12.9-16.9) g/dL Hct (37.5-50.1) % MCV (83.0-100.0) fL MCH (28.0-33.3) pg MCHC (31.6-35.5) g/dL RDW (11.5-14.5) % Plt Count (140-400) K/mcL MPV (9.4-12.4) fL Immature Gran % (0-4) % Seg Neutrophils % % Lymphocytes % % Monocytes % % Eosinophils % % Basophils % % Neutrophils # (1.6-8.9) K/mcL Lymphocytes # (0.6-4.6) K/mcL Monocytes # (0.0-1.3) K/mcL Eosinophils # (0.0-0.6) K/mcL Basophils # (0.0-0.2) K/mcL PT 14.4 H D 13.1 H (9.4-12.1) Seconds INR 1.3 D 1.2 APTT (26.0-36.0) Seconds Sodium 133 L (136-145) mEq/L Potassium 3.8 (3.5-4.5) mEq/L Chloride 100 (98-109) mEq/L Carbon Dioxide 26 (19-29) mEq/L BUN 3 L (8-26) mg/dL Creatinine 0.65 L (0.72-1.25) mg/dL Est GFR ( Amer) > 60 (> 60) Est GFR (Non-Af Amer) > 60 (> 60) BUN/Creatinine Ratio 5 L (6-26) Glucose 120 H (70-99) mg/dL Calculated Osmolality 274 L (280-300) Calcium 8.9 (8.6-10.8) mg/dL Magnesium 1.6 (1.6-2.6) mg/dL Total Bilirubin (0.2-1.2) mg/dL AST (5-34) Units/L ALT (0-55) Units/L Alkaline Phosphatase (38-126) Units/L Serum Total Protein (6.0-8.3) g/dL Albumin (3.5-5.0) g/dL Globulin (2.4-3.5) g/dL Albumin/Globulin Ratio (1.1-2.2) Blood Type Antibody Screen 07/20/16 07/20/16 07/20/16 Range/Units 02:22 02:22 02:22 WBC 20.0 H (4.3-11.1) K/mcL RBC 4.95 (4.19-5.50) M/mcL Hgb 14.7 (12.9-16.9) g/dL Hct 44.5 (37.5-50.1) % MCV 89.9 (83.0-100.0) fL MCH 29.7 (28.0-33.3) pg MCHC 33.0 (31.6-35.5) g/dL RDW 13.8 (11.5-14.5) % Plt Count 291 (140-400) K/mcL MPV 10.4 (9.4-12.4) fL Immature Gran % 0.5 (0-4) % Seg Neutrophils % 73.2 % Lymphocytes % 13.8 % Monocytes % 8.4 % Eosinophils % 3.4 % Basophils % 0.7 % Neutrophils # 14.6 H (1.6-8.9) K/mcL Lymphocytes # 2.8 (0.6-4.6) K/mcL Monocytes # 1.7 H (0.0-1.3) K/mcL Eosinophils # 0.7 H (0.0-0.6) K/mcL Basophils # 0.1 (0.0-0.2) K/mcL PT 13.5 H (9.4-12.1) Seconds INR 1.2 APTT (26.0-36.0) Seconds Sodium 133 L (136-145) mEq/L Potassium 4.4 (3.5-4.5) mEq/L Chloride 99 (98-109) mEq/L Carbon Dioxide 24 (19-29) mEq/L BUN 5 L (8-26) mg/dL Creatinine 0.74 (0.72-1.25) mg/dL Est GFR ( Amer) > 60 (> 60) Est GFR (Non-Af Amer) > 60 (> 60) BUN/Creatinine Ratio 7 (6-26) Glucose 106 H (70-99) mg/dL Calculated Osmolality 274 L (280-300) Calcium 8.7 (8.6-10.8) mg/dL Magnesium 1.3 L (1.6-2.6) mg/dL Total Bilirubin (0.2-1.2) mg/dL AST (5-34) Units/L ALT (0-55) Units/L Alkaline Phosphatase (38-126) Units/L Serum Total Protein (6.0-8.3) g/dL Albumin (3.5-5.0) g/dL Globulin (2.4-3.5) g/dL Albumin/Globulin Ratio (1.1-2.2) Blood Type Antibody Screen
[2016-07-20] MEDS: Ipratropium/Albuterol Neb 3 ML IH SCH ×2 (16:30→20:46)
[2016-07-20] MEDS ORDERED: 0.9 % Sodium Chloride 1,000 ML IVC SCH (17:00)
[2016-07-21] MEDS: Ipratropium/Albuterol Neb 3 ML IH SCH ×7 (00:45→23:56)
[2016-07-21] MEDS: *HR* Morphine 2 MG/ML SYRINGE IVP PRN ×4 (00:59→12:13)
[2016-07-21] MEDS: *HR* OxyCODONE Immed Rel 15 MG TABLET PO SCH ×5 (04:01→21:40)
[2016-07-21 04:45] LABS: Basophils % 0.2 %; Hematocrit 44.9 % (37.5-50.1); Hemoglobin 15.5 g/dL (12.9-16.9); Immature Granulocytes % 0.6 % (0-4); Lymphocytes # 0.6 K/mcL (0.6-4.6); Mean Corpuscular HGB Conc 34.5 g/dL (31.6-35.5); Mean Corpuscular Hemoglobin 29.9 pg (28.0-33.3); Mean Corpuscular Volume 86.5 fL (83.0-100.0); Monocytes # 0.7 K/mcL (0.0-1.3); Monocytes % 4.7 %; Neutrophils # 13.8 K/mcL (1.6-8.9); Platelet Count 297 K/mcL (140-400); Red Blood Count 5.19 M/mcL (4.19-5.50); Red Cell Distribution Width 13.3 % (11.5-14.5); Segmented Neutrophils % 90.5 %
[2016-07-21 05:01] LABS: BUN/Creatinine Ratio 10 (6-26); Blood Urea Nitrogen 6 mg/dL (8-26); Calcium 8.7 mg/dL (8.6-10.8); Carbon Dioxide 23 mEq/L (19-29); Chloride 94 mEq/L (98-109); Glucose 146 mg/dL (70-99); Osmolality,Calculated 268 (280-300); Potassium 3.7 mEq/L (3.5-4.5); Sodium 129 mEq/L (136-145); eGFR For African Americans > 60 (> 60); eGFR For Non-African Americans > 60 (> 60)
--- NOTE | 2016-07-21 09:09 | ENT - Progress Note ---
Date of Encounter: 07/21/16 Time of Encounter: 08:10 - Assessment and Plan (1) Oropharyngeal cancer Current Visit: Yes Status: Suspected R oropharyngeal squamous cell carcinoma confirmed in the OR yesterday. Trach in place/patent. Oozing is not bright red blood - is more of a mixture of old, dry secretions and old blood. Feeds started and will be advanced today. Cuff is down, patient able to speak and breathe around the trach w/ occlusion. 1. Will remove sutures in about 5 days 2. Consider trach change to 6 cuffless prior to discharge, suspect about 1 week 3. Oncology/Rad Onc re-eval given the unresectable nature of the disease 4. Gauze pad under the trach to prevent skin erosion, continue trach care otherwise 5. Will continue to follow, will sign off to Dr. Zee tomorrow Please page with questions/concerns. Michele Bermudez MD Subjective Patient reports: other (No issues with the trach, some oozing around it. RT changed the inner cannula. Feeds started.) Objective Initial Vital Signs Temp Pulse Resp BP Pulse Ox 97.5 F L 88 17 179/97 97 07/17/16 13:50 07/17/16 13:50 07/17/16 13:50 07/17/16 13:50 07/17/16 13:50 - General physical appearance chronically ill - Eyes Eyes: right Eye exam: ptosis - ENT Other (#[address]/patent/secured. Cuff let down and secretions suctions. Instructed on how to speak by occluding the trach with finger.) - Labs 07/21/16 04:15 07/21/16 04:15 Diabetes panel 07/21/16 Range/Units 04:15 Sodium 129 L (136-145) mEq/L Potassium 3.7 (3.5-4.5) mEq/L Chloride 94 L (98-109) mEq/L Carbon Dioxide 23 (19-29) mEq/L BUN 6 L (8-26) mg/dL Creatinine 0.63 L (0.72-1.25) mg/dL Glucose 146 H (70-99) mg/dL Calcium 8.7 (8.6-10.8) mg/dL Calcium panel 07/21/16 Range/Units 04:15 Calcium 8.7 (8.6-10.8) mg/dL Pituitary panel 07/21/16 Range/Units 04:15 Sodium 129 L (136-145) mEq/L Potassium 3.7 (3.5-4.5) mEq/L Chloride 94 L (98-109) mEq/L Carbon Dioxide 23 (19-29) mEq/L BUN 6 L (8-26) mg/dL Creatinine 0.63 L (0.72-1.25) mg/dL Glucose 146 H (70-99) mg/dL Calcium 8.7 (8.6-10.8) mg/dL Adrenal panel 07/21/16 Range/Units 04:15 Sodium 129 L (136-145) mEq/L Potassium 3.7 (3.5-4.5) mEq/L Chloride 94 L (98-109) mEq/L Carbon Dioxide 23 (19-29) mEq/L BUN 6 L (8-26) mg/dL Creatinine 0.63 L (0.72-1.25) mg/dL Glucose 146 H (70-99) mg/dL Calcium 8.7 (8.6-10.8) mg/dL - Stroke Reason for No Anticoagulant at DC: Medical contraindication - VTE Reasons for not Prescribing Prophylaxis: Medical contraindication Documentation of Mechanical Device: Graduated compression elastic hosiery Deep Vein Thrombosis/Pulmonary Embolism Present on Admission: No Consult Discharge Plan - Plan Referrals: NO,PCP [Primary Care Provider] -
[2016-07-21] MEDS: Sennosides/Docusate Sodium TABLET PO SCH ×2 (09:44→21:40)
[2016-07-21] MEDS: amLODIPine 5 MG TABLET PO SCH (09:45)
[2016-07-21] MEDS: Piperacillin/Tazobactam 3.375 GM in D5% in Water (Mini-Bag+) 100 ML IVPB SCH ×2 (09:45→17:21)
[2016-07-21] MEDS: Magic Mouthwash 10 ML UD Cup PO SCH ×3 (09:45→16:06)
--- NOTE | 2016-07-21 12:31 | Internal Med Progress Note ---
Date of Encounter: 07/21/16 Time of Encounter: 10:20 - Assessment and plan (1) Oropharyngeal cancer Current Visit: Yes Status: Suspected Assessment and plan: Discussed with ENT specialist. Continue current management and plan to decrease size of tracheostomy tube over the next week. Continues supportive care with suctioning and O2 supplementation as needed. Follow up with oncology. (2) HTN (hypertension) Current Visit: Yes Status: Chronic Assessment and plan: Uncontrolled. Will start patient on beta ruma. Qualifiers: Hypertension type: essential hypertension Qualified Code(s): I10 - Essential (primary) hypertension (3) Leukocytosis Current Visit: Yes Status: Acute Assessment and plan: Improving. On antibiotics. Blood cultures so far have not grown any bacteria. Will follow culture results. Qualifiers: Leukocytosis type: leukemoid reaction Qualified Code(s): D72.823 - Leukemoid reaction (4) Protein-calorie malnutrition, severe Current Visit: Yes Status: Acute Assessment and plan: Nutrition consulted and managing tube feeds through PEG tube (5) Supratherapeutic INR Current Visit: Yes Status: Resolved (6) Tobacco abuse Current Visit: Yes Status: Chronic (7) Sinus tachycardia by electrocardiogram Current Visit: Yes Status: Acute Assessment and plan: Patient tachycardic per EKG. SInus tachy. Likely from pain. Will monitor and control pain better. BP also elevated. Lopressor started. - Subjective Interval history: Underwent surgery with tracheostomy, PEG tube placement yesterday. Doing well postprocedure. He is having excessive secretions through his tracheostomy tube as expected. Pain is well-controlled with oral narcotic medications. - Constitutional Vitals: Temp Pulse Resp BP Pulse Ox 98.5 F 135 22 167/86 96 07/21/16 11:24 07/21/16 11:24 07/21/16 11:24 07/21/16 11:24 07/21/16 11:24 General appearance: Present: cooperative, A&O X 3, pleasant, no acute distress, answers questions appropriately - Neck Neck exam general surgery: Present: lymphadenopathy, supple, trachea midline Additional comments: Tracheostomy in place. - Respiratory Respiratory exam: Present: prolonged expiratory phase, wheezes. Absent: accessory muscle use, rales, rhonchi - Cardiovascular Cardiovascular exam: Present: RRR, +S1, +S2. Absent: diastolic murmur, gallop, rubs, systolic murmur - GI/Abdominal GI/Abdominal exam: Present: normal bowel sounds, soft, no peritoneal signs. Absent: distended, tenderness - Extremities Exam Extremities exam: Present: warm, radial pulses palpable and symetrical. Absent : calf tenderness, cyanotic, pedal edema - Neurological Exam Neurological exam: Present: CN II-XII intact, oriented X3, no focal deficits. Absent: facial droop, speech deficit - Skin Skin exam: Present: dry, intact Internal Medicine: Result - Labs CBC & Chem 7: 07/22/16 04:50 07/22/16 04:50 Labs: Short CBC 07/21/16 Range/Units 04:15 WBC 15.2 H (4.3-11.1) K/mcL Hgb 15.5 (12.9-16.9) g/dL Hct 44.9 (37.5-50.1) % Plt Count 297 (140-400) K/mcL Neutrophils # 13.8 H (1.6-8.9) K/mcL BMP 07/21/16 04:15 Sodium 129 L Potassium 3.7 Chloride 94 L Carbon Dioxide 23 BUN 6 L Creatinine 0.63 L Glucose 146 H Calcium 8.7 - ABG Interpretation ABG results: PT/INR, D-dimer PT 13.5 Seconds (9.4-12.1) H 07/20/16 02:22 - Impressions Impressions Chest X-Ray 07/20/16 14:25 IMPRESSION: No evidence of pneumothorax status post tracheostomy placement. D/ / Magnus Woodward MD / Magnus Woodward MD Interpreting Provider: Magnus Woodward MD - Stroke Reason for No Anticoagulant at DC: Medical contraindication - VTE Reasons for not Prescribing Prophylaxis: Medical contraindication Documentation of Mechanical Device: Intermittent pneumatic compression device Deep Vein Thrombosis/Pulmonary Embolism Present on Admission: No Consult Discharge Plan - Plan Referrals: NO,PCP [Primary Care Provider] - - Attending Attestation This document has been at least partially created by [employer] recognition technology by Dr. Madrigal. Errors in grammar, wording or other phrases may exist. If errors are found after the documentation is signed, they will be addressed individually in the addendum section of this document when appropriate.
--- NOTE | 2016-07-21 12:46 | General Surgery Progress Note ---
Date of Encounter: 07/21/16 Time of Encounter: 09:50 - Assessment and Plan (1) Dysphagia Current Visit: Yes Status: Acute POD#1 PEG tube placement. Dyphagia, secondary to oropharyngeal cancer/neck mass. Nutrition consulted to manage tube feeds. Will hold tube feeds over night due to repeated emesis. Qualifiers: Dysphagia type: oropharyngeal phase Qualified Code(s): R13.12 - Dysphagia, oropharyngeal phase (2) Oropharyngeal cancer Current Visit: Yes Status: Suspected (3) Malnutrition Current Visit: Yes Status: Acute Protein-calorie malnutrition, severe. PEG tube placed on 07/20/16. Nutrition managing tube feeds. (4) HTN (hypertension) Current Visit: Yes Status: Chronic Management per medicine service. Qualifiers: Hypertension type: essential hypertension Qualified Code(s): I10 - Essential (primary) hypertension (5) Elevated INR Current Visit: Yes Status: Acute Subjective Patient reports: no new complaints, flatus, no bowel movement, afebrile Objective Vital Signs - Last 8 Hours Temp Pulse Resp BP Pulse Ox 07/21/16 11:24 98.5 F 135 22 167/86 96 07/21/16 11:13 20 96 07/21/16 09:40 96 07/21/16 08:04 20 99 07/21/16 07:32 98.6 F 108 20 146/88 99 Intake and Output 07/20/16 07/21/16 07/21/16 23:59 07:59 15:59 Intake Total 750 / 750 200 / 200 360 / 360 Output Total 800 / 800 550 / 550 200 / 200 Balance -50 / -50 -350 / -350 160 / 160 Intake: IV Fluids 200 / 200 100 / 100 Zosyn 3.375 GM In 200 / 200 100 / 100 Dextrose 5% (Minibag+) 100 ML 100 ML @ 25 mls/hr IVPB Q8HR [facility] Rx#: [id number] Oral 0 / 0 0 / 0 0 / 0 Tube Feeding 110 / 110 120 / 120 Free Water 100 / 100 Free Water Intake Amount 340 / 340 100 / 100 240 / 240 Output: Urine 800 / 800 550 / 550 200 / 200 Other: Meal Dinner Breakfast Percent of Meal Consumed 0% 0% Weight 67.8 kg Blood Glucose* 122 139 121 Patient Weight 07/21/16 23:59 Weight 67.8 kg - General physical appearance well developed, well nourished, moderate distress - Eyes normal ocular movement - ENT normal mucosa, atraumatic, normocephalic - Neck Neck exam: trachea midline, other (tracheostomy in place) - Respiratory normal respiratory effort - Cardiovascular Cardiovascular exam: Present: tachycardia, regular rhythm - Abdomen Abdomen: Present: bowel sounds present, soft, non tender Additional Comments: PEG tube in place, insertion site C/D/I. - Integumentary no rash - Neurologic CN 2-12 grossly intact - Psychiatric oriented to time, oriented to person, oriented to place, speech is normal, memory intact - Labs 07/21/16 04:15 07/21/16 04:15 Diabetes panel 07/21/16 Range/Units 04:15 Sodium 129 L (136-145) mEq/L Potassium 3.7 (3.5-4.5) mEq/L Chloride 94 L (98-109) mEq/L Carbon Dioxide 23 (19-29) mEq/L BUN 6 L (8-26) mg/dL Creatinine 0.63 L (0.72-1.25) mg/dL Glucose 146 H (70-99) mg/dL Calcium 8.7 (8.6-10.8) mg/dL Calcium panel 07/21/16 Range/Units 04:15 Calcium 8.7 (8.6-10.8) mg/dL Pituitary panel 07/21/16 Range/Units 04:15 Sodium 129 L (136-145) mEq/L Potassium 3.7 (3.5-4.5) mEq/L Chloride 94 L (98-109) mEq/L Carbon Dioxide 23 (19-29) mEq/L BUN 6 L (8-26) mg/dL Creatinine 0.63 L (0.72-1.25) mg/dL Glucose 146 H (70-99) mg/dL Calcium 8.7 (8.6-10.8) mg/dL Adrenal panel 07/21/16 Range/Units 04:15 Sodium 129 L (136-145) mEq/L Potassium 3.7 (3.5-4.5) mEq/L Chloride 94 L (98-109) mEq/L Carbon Dioxide 23 (19-29) mEq/L BUN 6 L (8-26) mg/dL Creatinine 0.63 L (0.72-1.25) mg/dL Glucose 146 H (70-99) mg/dL Calcium 8.7 (8.6-10.8) mg/dL - Stroke Reason for No Anticoagulant at DC: Medical contraindication - VTE Reasons for not Prescribing Prophylaxis: Medical contraindication Documentation of Mechanical Device: Intermittent pneumatic compression device Deep Vein Thrombosis/Pulmonary Embolism Present on Admission: No Consult Discharge Plan - Plan Referrals: NO,PCP [Primary Care Provider] -
[2016-07-21] MEDS ORDERED: 0.9 % Sodium Chloride 1,000 ML ONE (13:32)
[2016-07-21] MEDS: 0.9 % Sodium Chloride 1,000 ML IVC SCH (13:51)
[2016-07-21] MEDS: *HR* HYDROmorphone (PF) 1 MG/ML SYRINGE IVP PRN (13:51)
[2016-07-21] MEDS ORDERED: *HR* LORazepam 2 MG/ML VIAL IVP PRN (15:39)
[2016-07-22] MEDS: Magic Mouthwash 10 ML UD Cup PO SCH ×2 (00:37→10:25)
[2016-07-22] MEDS: Piperacillin/Tazobactam 3.375 GM in D5% in Water (Mini-Bag+) 100 ML IVPB SCH ×4 (00:37→23:49)
[2016-07-22] MEDS: *HR* HYDROmorphone (PF) 1 MG/ML SYRINGE IVP PRN ×3 (00:45→21:20)
[2016-07-22] MEDS: *HR* OxyCODONE Immed Rel 15 MG TABLET PO SCH ×7 (01:51→23:49)
[2016-07-22] MEDS: 0.9 % Sodium Chloride 1,000 ML IVC SCH ×2 (01:51→17:58)
[2016-07-22] MEDS: Ipratropium/Albuterol Neb 3 ML IH SCH ×6 (03:57→23:43)
[2016-07-22 05:11] LABS: Basophils # 0.1 K/mcL (0.0-0.2); Basophils % 0.4 %; Eosinophils # 0.1 K/mcL (0.0-0.6); Eosinophils % 0.6 %; Hematocrit 46.2 % (37.5-50.1); Hemoglobin 15.6 g/dL (12.9-16.9); Immature Granulocytes % 0.7 % (0-4); Lymphocytes # 1.7 K/mcL (0.6-4.6); Lymphocytes % 9.7 %; Mean Corpuscular HGB Conc 33.8 g/dL (31.6-35.5); Mean Corpuscular Hemoglobin 29.9 pg (28.0-33.3); Mean Corpuscular Volume 88.5 fL (83.0-100.0); Mean Platelet Volume 10.2 fL (9.4-12.4); Monocytes # 1.4 K/mcL (0.0-1.3); Monocytes % 8.3 %; Neutrophils # 13.9 K/mcL (1.6-8.9); Platelet Count 323 K/mcL (140-400); Red Blood Count 5.22 M/mcL (4.19-5.50); Red Cell Distribution Width 13.4 % (11.5-14.5); Segmented Neutrophils % 80.3 %
[2016-07-22 05:32] LABS: BUN/Creatinine Ratio 13 (6-26); Blood Urea Nitrogen 8 mg/dL (8-26); Calcium 8.4 mg/dL (8.6-10.8); Carbon Dioxide 25 mEq/L (19-29); Chloride 93 mEq/L (98-109); Glucose 105 mg/dL (70-99); Osmolality,Calculated 267 (280-300); Potassium 3.8 mEq/L (3.5-4.5); Sodium 129 mEq/L (136-145); eGFR For African Americans > 60 (> 60); eGFR For Non-African Americans > 60 (> 60)
--- NOTE | 2016-07-22 09:27 | Palliative Progress Note ---
Date of Encounter: 07/22/16 Time of Encounter: 09:10 - Assessment and plan (1) Right facial pain Current Visit: Yes Status: Acute Assessment and plan: Morphine was changed to Hydromorphone yesterday and pt reports this has been more effective. Monitor (2) Constipation Current Visit: Yes Status: Acute Assessment and plan: Patient did not have any results with Senokot and Dulcolax tabs from Thurs/Fri. No BM now in at least 11 days, ? source of vomiting yesterday with tube feeds? . He would like to try enema today. Ordered and will also increase Senokot. Qualifiers: Constipation type: unspecified constipation type Qualified Code(s): K59.00 - Constipation, unspecified (3) Counseling regarding advanced care planning and goals of care Current Visit: Yes Status: Acute Assessment and plan: Ultimately, d/c plan will be [facility]. POA established last week. Will follow clinical course. (4) Dysphagia Current Visit: Yes Status: Acute Qualifiers: Dysphagia type: oropharyngeal phase Qualified Code(s): R13.12 - Dysphagia, oropharyngeal phase (5) Neck mass Current Visit: Yes Status: Acute (6) Malnutrition Current Visit: Yes Status: Acute - Time Spent With Patient Total time spent is greater than 50% in coordination of care (as documented) at patient's floor/unit and/or counseling patient: - Subjective Interval history: Events of weekend reviewed. Trach/PEG placed Friday. Yesterday with nausea and vomiting with tube feeds. Today c/o abd cramping. Some soreness at PEG site and trach site. Acknowledged pain medications helpful. No visitors present yet this am. - Constitutional Vitals: Abnormal lab results WBC 17.3 K/mcL (4.3-11.1) H 07/22/16 04:50 Neutrophils # 13.9 K/mcL (1.6-8.9) H 07/22/16 04:50 Monocytes # 1.4 K/mcL (0.0-1.3) H 07/22/16 04:50 PT 13.5 Seconds (9.4-12.1) H 07/20/16 02:22 APTT 54.3 Seconds (26.0-36.0) H 07/18/16 03:40 Sodium 129 mEq/L (136-145) L 07/22/16 04:50 Chloride 93 mEq/L (98-109) L 07/22/16 04:50 Creatinine 0.60 mg/dL (0.72-1.25) L 07/22/16 04:50 Glucose 105 mg/dL (70-99) H 07/22/16 04:50 POC Glucose 94 (58-89) H 07/22/16 05:46 Calculated Osmolality 267 (280-300) L 07/22/16 04:50 Calcium 8.4 mg/dL (8.6-10.8) L 07/22/16 04:50 Magnesium 1.3 mg/dL (1.6-2.6) L 07/20/16 02:22 Globulin 4.2 g/dL (2.4-3.5) H 07/17/16 14:21 Albumin/Globulin Ratio 0.9 (1.1-2.2) L 07/17/16 14:21 General appearance: Present: no acute distress - ENT Additional comments: Trach intact with small amount light brown drainage. - Respiratory Additional comments: scattered rhonchi throughout all lung [place] - Cardiovascular Cardiovascular exam: Present: +S1, +S2 - GI/Abdominal GI/Abdominal exam: Present: hypoactive bowel sounds, soft Additional comments: Peg intact, dressing in place. - Extremities Exam Extremities exam: Present: normal capillary refill, normal inspection - Neurological Exam Neurological exam: Present: alert, oriented X3, strengths equal and symetr throughout - Skin Skin exam: Present: dry, pallor, warm Palliative Quality Palliative Quality: Screen for Code Status: Yes, Screen for Goals of Care: Yes, Screen for Pain: Yes, If Pain Regimen Started, Initiate Bowel Regimen: Yes, Screen for Nausea/Vomitting: Yes Code Status: 07/17/16 14:24 Resuscitation Status: Active [RES] Routine Comment: Resuscitation Status: Full Code 07/18/16 08:55 CODE [Resuscitation Status: Active] [RES] Routine Comment: per discussion with patient this am Resuscitation Status: DNR-Comfort Care 07/19/16 12:51 DNR [Resuscitation Status: Active] [RES] Routine Comment: Resuscitation Status: DNR-Comfort Care-Arrest - Labs CBC & Chem 7: 07/22/16 04:50 07/22/16 04:50 Labs: Laboratory Results - last 24 hr 07/21/16 07/21/16 07/21/16 03:07 11:32 17:27 WBC RBC Hgb Hct MCV MCH MCHC RDW Plt Count MPV Immature Gran % Seg Neutrophils % Lymphocytes % Monocytes % Eosinophils % Basophils % Neutrophils # Lymphocytes # Monocytes # Eosinophils # Basophils # Sodium Potassium Chloride Carbon Dioxide BUN Creatinine Est GFR ( Amer) Est GFR (Non-Af Amer) BUN/Creatinine Ratio Glucose POC Glucose 139 H 121 H 104 H Calculated Osmolality Calcium 07/21/16 07/22/16 07/22/16 23:59 04:50 04:50 WBC 17.3 H RBC 5.22 Hgb 15.6 Hct 46.2 MCV 88.5 MCH 29.9 MCHC 33.8 RDW 13.4 Plt Count 323 MPV 10.2 Immature Gran % 0.7 Seg Neutrophils % 80.3 Lymphocytes % 9.7 Monocytes % 8.3 Eosinophils % 0.6 Basophils % 0.4 Neutrophils # 13.9 H Lymphocytes # 1.7 Monocytes # 1.4 H Eosinophils # 0.1 Basophils # 0.1 Sodium 129 L Potassium 3.8 Chloride 93 L Carbon Dioxide 25 BUN 8 Creatinine 0.60 L Est GFR ( Amer) > 60 Est GFR (Non-Af Amer) > 60 BUN/Creatinine Ratio 13 Glucose 105 H POC Glucose 93 H Calculated Osmolality 267 L Calcium 8.4 L 07/22/16 05:46 WBC RBC Hgb Hct MCV MCH MCHC RDW Plt Count MPV Immature Gran % Seg Neutrophils % Lymphocytes % Monocytes % Eosinophils % Basophils % Neutrophils # Lymphocytes # Monocytes # Eosinophils # Basophils # Sodium Potassium Chloride Carbon Dioxide BUN Creatinine Est GFR ( Amer) Est GFR (Non-Af Amer) BUN/Creatinine Ratio Glucose POC Glucose 94 H Calculated Osmolality Calcium - ABG Interpretation ABG results: PT/INR, D-dimer PT 13.5 Seconds (9.4-12.1) H 07/20/16 02:22 Consult Discharge Plan - Plan Referrals: NO,PCP [Primary Care Provider] -
[2016-07-22] MEDS: amLODIPine 5 MG TABLET PO SCH (10:26)
--- NOTE | 2016-07-22 12:19 | Internal Med Progress Note ---
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 Follow-up with oncology. Status post PEG tube and tracheostomy. Plan to continue weaning down to size over the next week. High risk for complications (2) HTN (hypertension) Current Visit: Yes Status: Chronic Assessment and plan: Remains well controlled Qualifiers: Hypertension type: essential hypertension Qualified Code(s): I10 - Essential (primary) hypertension (3) Leukocytosis Current Visit: Yes Status: Acute Assessment and plan: Increased WBC count today. Likely due to recent surgery and stress response. Currently receiving Zosyn. Blood cultures have been negative so far. Qualifiers: Leukocytosis type: leukemoid reaction Qualified Code(s): D72.823 - Leukemoid reaction (4) Protein-calorie malnutrition, severe Current Visit: Yes Status: Acute Assessment and plan: Started on tube feeds. Did not tolerate them well. Start Reglan for prokinetic effect. (5) Supratherapeutic INR Current Visit: Yes Status: Resolved Assessment and plan: Coumadin has been held due to surgery. No clear indication for continued Coumadin at this time. Patient was started on Coumadin for CVA 2 years back and never followed up and was continuing to take it. Currently on DVT prophylaxis with subcutaneous heparin. (6) Tobacco abuse Current Visit: Yes Status: Chronic (7) Sinus tachycardia by electrocardiogram Current Visit: Yes Status: Acute Assessment and plan: Improved. Likely due to pain. - Subjective Interval history: Patient complains of pain at the site of his PEG tube. Continues to have increased secretions through his tracheostomy tube. PEG tubes have been held as patient has been having vomiting overnight. He also complains of constipation. - Constitutional Vitals: Temp Pulse Resp BP Pulse Ox 98.9 F 87 18 116/72 95 07/22/16 11:56 07/22/16 11:56 07/22/16 11:56 07/22/16 11:56 07/22/16 11:56 General appearance: Present: cooperative, A&O X 3, pleasant, no acute distress, answers questions appropriately Exam: Moderate distress - Neck Neck exam general surgery: Present: lymphadenopathy, trachea midline Additional comments: Tracheostomy in place - Respiratory Respiratory exam: Present: prolonged expiratory phase, wheezes. Absent: accessory muscle use, rales, rhonchi - Cardiovascular Cardiovascular exam: Present: RRR, +S1, +S2. Absent: diastolic murmur, gallop, rubs, systolic murmur - GI/Abdominal GI/Abdominal exam: Present: normal bowel sounds, soft, no peritoneal signs. Absent: distended, tenderness Additional comments: Tenderness around PEG site without any erythema or swelling. - Extremities Exam Extremities exam: Present: warm, radial pulses palpable and symetrical. Absent : calf tenderness, cyanotic, pedal edema - Neurological Exam Neurological exam: Present: CN II-XII intact, oriented X3, no focal deficits. Absent: facial droop, speech deficit Internal Medicine: Result - Labs CBC & Chem 7: 07/22/16 04:50 07/22/16 04:50 Labs: Short CBC 07/22/16 Range/Units 04:50 WBC 17.3 H (4.3-11.1) K/mcL Hgb 15.6 (12.9-16.9) g/dL Hct 46.2 (37.5-50.1) % Plt Count 323 (140-400) K/mcL Neutrophils # 13.9 H (1.6-8.9) K/mcL BMP 07/22/16 04:50 Sodium 129 L Potassium 3.8 Chloride 93 L Carbon Dioxide 25 BUN 8 Creatinine 0.60 L Glucose 105 H Calcium 8.4 L - ABG Interpretation ABG results: PT/INR, D-dimer PT 13.5 Seconds (9.4-12.1) H 07/20/16 02:22 - Stroke Reason for No Anticoagulant at DC: Medical contraindication - VTE Reasons for not Prescribing Prophylaxis: Medical contraindication Documentation of Mechanical Device: Intermittent pneumatic compression device Deep Vein Thrombosis/Pulmonary Embolism Present on Admission: No Consult Discharge Plan - Plan Referrals: NO,PCP [Primary Care Provider] - - Attending Attestation This document has been at least partially created by [employer] recognition technology by Dr. Madrigal. Errors in grammar, wording or other phrases may exist. If errors are found after the documentation is signed, they will be addressed individually in the addendum section of this document when appropriate.
[2016-07-22] MEDS: Metoclopramide 10 MG/2 ML VIAL IVP SCH ×3 (12:41→23:49)
--- NOTE | 2016-07-22 13:17 | General Surgery Progress Note ---
Date of Encounter: 07/22/16 Time of Encounter: 13:15 - Assessment and Plan (1) Dysphagia Current Visit: Yes Status: Acute Patient with head/neck cancer s/p peg tube placement 07/20/[address] Modi Start tube feeds today at low continuous rate- discussed with senior software analyst Palliative care team following Barium swallow unable to be complete until Friday07/22/16 Supportive care/pain control Qualifiers: Dysphagia type: oropharyngeal phase Qualified Code(s): R13.12 - Dysphagia, oropharyngeal phase (2) Malnutrition Current Visit: Yes Status: Acute Start tube feeds today at continuous low rate Closet Organizer notified (3) Neck mass Current Visit: Yes Status: Acute ENT following- s/p biopsy and tracheostomy Pathology pending Oncology consulted (4) HTN (hypertension) Current Visit: Yes Status: Chronic normotensive Management per medicine service Qualifiers: Hypertension type: essential hypertension Qualified Code(s): I10 - Essential (primary) hypertension Subjective Patient reports: no new complaints, feels better, voiding w/o difficulty, flatus , no bowel movement (nurse just administered soap suds enema), fever (Tmax 100.4 ) Objective Vital Signs - Last 8 Hours Temp Pulse Resp BP Pulse Ox 07/22/16 11:56 98.9 F 87 18 116/72 95 07/22/16 11:41 98.9 F 87 16 116/72 91 L 07/22/16 11:16 16 88 L 07/22/16 10:15 100.4 F H 98 14 123/70 96 07/22/16 08:00 97.8 F 102 20 130/68 94 L 07/22/16 07:57 101 94 L 07/22/16 07:39 18 94 L Intake and Output 07/21/16 07/22/16 07/22/16 23:59 07:59 15:59 Intake Total 100 / 100 1100 / 1100 60 / 60 Output Total 300 / 300 650 / 650 Balance 100 / 100 800 / 800 -590 / -590 Intake: IV Fluids 100 / 100 1100 / 1100 0.9 % Sodium Chloride 1, 1000 / 1000 000 ML @ 75 mls/hr IVC . [id number] GHULAM Rx#: [id number] Zosyn 3.375 GM In 100 / 100 100 / 100 Dextrose 5% (Minibag+) 100 ML 100 ML @ 25 mls/hr IVPB Q8HR GHULAM Rx#: [id number] Oral 0 / 0 0 / 0 Free Water 60 / 60 Output: Urine 300 / 300 650 / 650 Other: Meal Breakfast Percent of Meal Consumed 0% Weight 71.8 kg Blood Glucose* 104 94 96 Patient Weight 07/22/16 23:59 Weight 71.8 kg - General physical appearance no distress - Eyes normal ocular movement - ENT atraumatic, normocephalic - Neck Neck exam: other (tracheostomy midline, secure and patent) - Respiratory normal respiratory effort, clear to auscultation - Cardiovascular Cardiovascular exam: Present: RRR - Abdomen Abdomen: Present: bowel sounds present, soft, non tender, wound (peg tube secure without surrounding erythema or induration) - Neurologic CN 2-12 grossly intact - Psychiatric oriented to person, oriented to place - Labs 07/22/16 04:50 07/22/16 04:50 Diabetes panel 07/22/16 Range/Units 04:50 Sodium 129 L (136-145) mEq/L Potassium 3.8 (3.5-4.5) mEq/L Chloride 93 L (98-109) mEq/L Carbon Dioxide 25 (19-29) mEq/L BUN 8 (8-26) mg/dL Creatinine 0.60 L (0.72-1.25) mg/dL Glucose 105 H (70-99) mg/dL Calcium 8.4 L (8.6-10.8) mg/dL Calcium panel 07/22/16 Range/Units 04:50 Calcium 8.4 L (8.6-10.8) mg/dL Pituitary panel 07/22/16 Range/Units 04:50 Sodium 129 L (136-145) mEq/L Potassium 3.8 (3.5-4.5) mEq/L Chloride 93 L (98-109) mEq/L Carbon Dioxide 25 (19-29) mEq/L BUN 8 (8-26) mg/dL Creatinine 0.60 L (0.72-1.25) mg/dL Glucose 105 H (70-99) mg/dL Calcium 8.4 L (8.6-10.8) mg/dL Adrenal panel 07/22/16 Range/Units 04:50 Sodium 129 L (136-145) mEq/L Potassium 3.8 (3.5-4.5) mEq/L Chloride 93 L (98-109) mEq/L Carbon Dioxide 25 (19-29) mEq/L BUN 8 (8-26) mg/dL Creatinine 0.60 L (0.72-1.25) mg/dL Glucose 105 H (70-99) mg/dL Calcium 8.4 L (8.6-10.8) mg/dL - Stroke Reason for No Anticoagulant at DC: Medical contraindication - VTE Reasons for not Prescribing Prophylaxis: Medical contraindication Documentation of Mechanical Device: Intermittent pneumatic compression device Deep Vein Thrombosis/Pulmonary Embolism Present on Admission: No Consult Discharge Plan - Plan Referrals: NO,PCP [Primary Care Provider] -
--- NOTE | 2016-07-22 17:33 | Electrocardiograph Report ---
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
[2016-07-22] MEDS: *HR* Heparin 5,000 UNIT/ML VIAL SQ SCH (18:21)
[2016-07-22] MEDS: Sennosides/Docusate Sodium TABLET PO SCH (21:21)
[2016-07-23] MEDS: *HR* OxyCODONE Immed Rel 15 MG TABLET PO SCH ×6 (04:17→23:16)
[2016-07-23 04:32] LABS: Basophils # 0.1 K/mcL (0.0-0.2); Basophils % 0.9 %; Eosinophils # 1.6 K/mcL (0.0-0.6); Eosinophils % 11.1 %; Hematocrit 36.8 % (37.5-50.1); Immature Granulocytes % 0.4 % (0-4); Lymphocytes % 14.3 %; Mean Corpuscular HGB Conc 34.2 g/dL (31.6-35.5); Mean Corpuscular Hemoglobin 30.2 pg (28.0-33.3); Mean Corpuscular Volume 88.2 fL (83.0-100.0); Mean Platelet Volume 10.4 fL (9.4-12.4); Monocytes # 1.3 K/mcL (0.0-1.3); Monocytes % 9.5 %; Neutrophils # 8.9 K/mcL (1.6-8.9); Platelet Count 288 K/mcL (140-400); Red Blood Count 4.17 M/mcL (4.19-5.50); Red Cell Distribution Width 13.4 % (11.5-14.5); Segmented Neutrophils % 63.8 %
[2016-07-23 04:45] LABS: Hemoglobin 12.6 g/dL (12.9-16.9)
[2016-07-23] MEDS: Ipratropium/Albuterol Neb 3 ML IH SCH ×6 (04:52→23:56)
[2016-07-23 05:24] LABS: BUN/Creatinine Ratio 10 (6-26); Blood Urea Nitrogen 6 mg/dL (8-26); Carbon Dioxide 25 mEq/L (19-29); Chloride 95 mEq/L (98-109); Glucose 107 mg/dL (70-99); Osmolality,Calculated 264 (280-300); Potassium 3.5 mEq/L (3.5-4.5); Sodium 128 mEq/L (136-145); eGFR For African Americans > 60 (> 60); eGFR For Non-African Americans > 60 (> 60)
[2016-07-23] MEDS: *HR* Heparin 5,000 UNIT/ML VIAL SQ SCH ×2 (05:47→17:02)
[2016-07-23] MEDS: Metoclopramide 10 MG/2 ML VIAL IVP SCH ×4 (05:47→23:15)
[2016-07-23] MEDS: *HR* HYDROmorphone (PF) 1 MG/ML SYRINGE IVP PRN (05:54)
[2016-07-23] MEDS: amLODIPine 5 MG TABLET PO SCH (08:15)
[2016-07-23] MEDS: Sennosides/Docusate Sodium TABLET PO SCH ×2 (08:16→20:15)
[2016-07-23] MEDS: Piperacillin/Tazobactam 3.375 GM in D5% in Water (Mini-Bag+) 100 ML IVPB SCH ×3 (08:19→23:15)
--- NOTE | 2016-07-23 10:55 | Palliative Progress Note ---
Date of Encounter: 07/23/16 Time of Encounter: 10:15 - Assessment and plan (1) Right facial pain Current Visit: Yes Status: Acute Assessment and plan: States Oxycodone has been effective and keeping him comfortable. Has also utilized Hydromorphone x3 last 24 hours. Monitor (2) Constipation Current Visit: Yes Status: Acute Assessment and plan: No results from enema yesterday. Tube feeds have been restarted. Continue Senokot and add Miralax daily. Qualifiers: Constipation type: unspecified constipation type Qualified Code(s): K59.00 - Constipation, unspecified (3) Counseling regarding advanced care planning and goals of care Current Visit: Yes Status: Acute (4) Dysphagia Current Visit: Yes Status: Acute Qualifiers: Dysphagia type: oropharyngeal phase Qualified Code(s): R13.12 - Dysphagia, oropharyngeal phase (5) Neck mass Current Visit: Yes Status: Acute (6) Malnutrition Current Visit: Yes Status: Acute - Time Spent With Patient Total time spent is greater than 50% in coordination of care (as documented) at patient's floor/unit and/or counseling patient: 25 - 35 minutes - Subjective Interval history: Patient sitting up in bed watching tv. Yellow secretions noted from trach. States had "rough night" but is comfortable now. States pain is controlled. Tube Feedings have been restarted and tolerating thus far. Still no BM after enema yesterday. - Constitutional Vitals: Abnormal lab results WBC 13.9 K/mcL (4.3-11.1) H 07/23/16 04:10 RBC 4.17 M/mcL (4.19-5.50) L 07/23/16 04:10 Hgb 12.6 g/dL (12.9-16.9) L D 07/23/16 04:10 Hct 36.8 % (37.5-50.1) L 07/23/16 04:10 Eosinophils # 1.6 K/mcL (0.0-0.6) H 07/23/16 04:10 PT 13.5 Seconds (9.4-12.1) H 07/20/16 02:22 APTT 54.3 Seconds (26.0-36.0) H 07/18/16 03:40 Sodium 128 mEq/L (136-145) L 07/23/16 05:00 Chloride 95 mEq/L (98-109) L 07/23/16 05:00 BUN 6 mg/dL (8-26) L 07/23/16 05:00 Creatinine 0.59 mg/dL (0.72-1.25) L 07/23/16 05:00 Glucose 107 mg/dL (70-99) H 07/23/16 05:00 POC Glucose 104 (58-89) H 07/23/16 00:33 Calculated Osmolality 264 (280-300) L 07/23/16 05:00 Calcium 8.0 mg/dL (8.6-10.8) L 07/23/16 05:00 Magnesium 1.3 mg/dL (1.6-2.6) L 07/20/16 02:22 Globulin 4.2 g/dL (2.4-3.5) H 07/17/16 14:21 Albumin/Globulin Ratio 0.9 (1.1-2.2) L 07/17/16 14:21 General appearance: Present: no acute distress - Respiratory Additional comments: Scattered rhonchi. O2 via trach mask. - Cardiovascular Cardiovascular exam: Present: +S1, +S2 - GI/Abdominal GI/Abdominal exam: Present: diminished bowel sounds, distended, soft Additional comments: PEG intact - Additional comments: Voids per urinal. Urine light francis - Neurological Exam Neurological exam: Present: alert, oriented X3, strengths equal and symetr throughout - Skin Skin exam: Present: dry, warm Palliative Quality Palliative Quality: Screen for Code Status: Yes, Screen for Goals of Care: Yes, Screen for Pain: Yes, If Pain Regimen Started, Initiate Bowel Regimen: Yes, Screen for Nausea/Vomitting: Yes Code Status: 07/17/16 14:24 Resuscitation Status: Active [RES] Routine Comment: Resuscitation Status: Full Code 07/18/16 08:55 CODE [Resuscitation Status: Active] [RES] Routine Comment: per discussion with patient this am Resuscitation Status: DNR-Comfort Care 07/19/16 12:51 DNR [Resuscitation Status: Active] [RES] Routine Comment: Resuscitation Status: DNR-Comfort Care-Arrest - Labs CBC & Chem 7: 07/23/16 04:10 07/23/16 05:00 Labs: Laboratory Results - last 24 hr 07/22/16 07/22/16 07/23/16 11:41 17:44 00:33 WBC RBC Hgb Hct MCV MCH MCHC RDW Plt Count MPV Immature Gran % Seg Neutrophils % Lymphocytes % Monocytes % Eosinophils % Basophils % Neutrophils # Lymphocytes # Monocytes # Eosinophils # Basophils # Sodium Potassium Chloride Carbon Dioxide BUN Creatinine Est GFR ( Amer) Est GFR (Non-Af Amer) BUN/Creatinine Ratio Glucose POC Glucose 96 H 81 104 H Calculated Osmolality Calcium Specimen Rejected 07/23/16 07/23/16 07/23/16 04:10 04:41 05:00 WBC 13.9 H RBC 4.17 L Hgb 12.6 L D Hct 36.8 L MCV 88.2 MCH 30.2 MCHC 34.2 RDW 13.4 Plt Count 288 MPV 10.4 Immature Gran % 0.4 Seg Neutrophils % 63.8 Lymphocytes % 14.3 Monocytes % 9.5 Eosinophils % 11.1 Basophils % 0.9 Neutrophils # 8.9 Lymphocytes # 2.0 Monocytes # 1.3 Eosinophils # 1.6 H Basophils # 0.1 Sodium 128 L Potassium 3.5 Chloride 95 L Carbon Dioxide 25 BUN 6 L Creatinine 0.59 L Est GFR ( Amer) > 60 Est GFR (Non-Af Amer) > 60 BUN/Creatinine Ratio 10 Glucose 107 H POC Glucose Calculated Osmolality 264 L Calcium 8.0 L Specimen Rejected Hemolyzed - ABG Interpretation ABG results: PT/INR, D-dimer PT 13.5 Seconds (9.4-12.1) H 07/20/16 02:22 Consult Discharge Plan - Plan Referrals: NO,PCP [Primary Care Provider] -
--- NOTE | 2016-07-23 11:33 | ENT - Progress Note ---
Date of Encounter: 07/22/16 Time of Encounter: 16:30 - Assessment and Plan (1) Airway obstruction Current Visit: Yes Status: Acute Patient with airway obstruction secondary to oropharyngeal mass which came back as squamous cell carcinoma of the oropharynx on frozen section. Tracheostomy was performed 3 days ago to help relieve obstruction from large airway tumor. Airway currently stable status post tracheostomy. (2) Status post tracheostomy Current Visit: Yes Status: Acute Patient currently postop day #3 after tracheostomy was placed. Tracheostomy currently looks healthy without any significant bleeding. Trach is currently sutured in place. Will plan on changing tracheostomy tube later this week and remove sutures. Will likely change patient to an uncuffed #6 tube. We will order this tube to the bedside for trach change and will plan for this most likely on . Patient having some difficulty with communicating with new trach. We will reconsult speech therapy for passy k[place] valve to determine if patient tolerates a [place] valve to help with his communication. Patient may need to be suctioned occasionally in order to tolerate the valve being in place. We will follow from a distance until tracheostomy change is performed. Please contact ENT as needed. 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 Frozen section was obtained at the time of the biopsy performed by Dr. Bermudez this weekend which confirms squamous cell carcinoma. Upon further review of the CT scans of his neck it showed that the large tumor extends from the area of the tonsil into the parapharyngeal space encasing the great vessels. Patient with extensive lymphadenopathy in the neck corresponding to metastasis. Due to the extensive spread of the tumor into the parapharyngeal space and encasing of the great vessels this is not resectable. Further treatment per radiation oncology for treatment of a squamous cell carcinoma. Subjective Narrative: Patient seen and examined at the bedside. Patient difficulty with speech production. Patient is having a hard time finding the opening of the trach to place his finger. Patient does have some secretions from tracheostomy tube but is able to cough them up pretty well on his own. Objective Initial Vital Signs Temp Pulse Resp BP Pulse Ox 97.5 F L 88 17 179/97 97 07/17/16 13:50 07/17/16 13:50 07/17/16 13:50 07/17/16 13:50 07/17/16 13:50 - Eyes normal ocular movement - ENT normal nares - Neck other (Lymphadenopathy right neck, tracheostomy t tube in place. Cuff is down. Mucoid drainage from tracheostomy tube. Trach collar in place) - Respiratory other (Good cough) - Psychiatric oriented to time, oriented to person, oriented to place - Labs 07/23/16 04:10 07/23/16 05:00 Diabetes panel 07/23/16 Range/Units 05:00 Sodium 128 L (136-145) mEq/L Potassium 3.5 (3.5-4.5) mEq/L Chloride 95 L (98-109) mEq/L Carbon Dioxide 25 (19-29) mEq/L BUN 6 L (8-26) mg/dL Creatinine 0.59 L (0.72-1.25) mg/dL Glucose 107 H (70-99) mg/dL Calcium 8.0 L (8.6-10.8) mg/dL Calcium panel 07/23/16 Range/Units 05:00 Calcium 8.0 L (8.6-10.8) mg/dL Pituitary panel 07/23/16 Range/Units 05:00 Sodium 128 L (136-145) mEq/L Potassium 3.5 (3.5-4.5) mEq/L Chloride 95 L (98-109) mEq/L Carbon Dioxide 25 (19-29) mEq/L BUN 6 L (8-26) mg/dL Creatinine 0.59 L (0.72-1.25) mg/dL Glucose 107 H (70-99) mg/dL Calcium 8.0 L (8.6-10.8) mg/dL Adrenal panel 07/23/16 Range/Units 05:00 Sodium 128 L (136-145) mEq/L Potassium 3.5 (3.5-4.5) mEq/L Chloride 95 L (98-109) mEq/L Carbon Dioxide 25 (19-29) mEq/L BUN 6 L (8-26) mg/dL Creatinine 0.59 L (0.72-1.25) mg/dL Glucose 107 H (70-99) mg/dL Calcium 8.0 L (8.6-10.8) mg/dL - Stroke Reason for No Anticoagulant at DC: Medical contraindication - VTE Reasons for not Prescribing Prophylaxis: Medical contraindication Documentation of Mechanical Device: Graduated compression elastic hosiery Deep Vein Thrombosis/Pulmonary Embolism Present on Admission: No Consult Discharge Plan - Plan Referrals: NO,PCP [Primary Care Provider] -
[2016-07-23] MEDS: 0.9 % Sodium Chloride 1,000 ML IVC SCH (11:58)
--- NOTE | 2016-07-23 15:27 | Event Note ---
Date of Encounter: 07/23/16 Time of Encounter: 15:25 Discussed with nurse, patient tolerating tube feeds. Continue to increase by 10cc/hr to goal of 70cc/hr. Patient denying any nausea or vomiting. Will continue to follow patient from a distance.
[2016-07-23] MEDS: Acetaminophen 325 MG TABLET PO PRN (17:02)
--- NOTE | 2016-07-23 19:10 | Internal Med Progress Note ---
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 continue trach and peg care, Tracheostomy was performed 3 days ago to help relieve obstruction from large airway tumor mitral hyponatremia, continue peg feeds follow speech therapy recommendations. Palliative care following. Qualifiers: Hypertension type: essential hypertension Qualified Code(s): I10 - Essential (primary) hypertension - Subjective Interval history: Patient evaluated, seen lying in bed. No complains today. - Constitutional Vitals: Temp Pulse Resp BP Pulse Ox 99.6 F 87 18 141/73 93 L 07/23/16 17:08 07/23/16 17:08 07/23/16 17:08 07/23/16 17:08 07/23/16 17:08 General appearance: Present: cooperative, A&O X 3, pleasant, no acute distress, answers questions appropriately - Head Head exam: Present: atraumatic, normocephalic - Eye Eye exam: Present: PERRL, conjuntiva pink, sclera anicteric Pupils: Present: PERRL - Neck Neck exam general surgery: Present: supple, trachea midline. Absent: lymphadenopathy Additional comments: trach present and intact. - Respiratory Respiratory exam: Present: decreased breath sounds, rhonchi. Absent: accessory muscle use, rales, wheezes - Cardiovascular Cardiovascular exam: Present: RRR, +S1, +S2. Absent: diastolic murmur, gallop, rubs, systolic murmur - GI/Abdominal GI/Abdominal exam: Present: normal bowel sounds, soft, no peritoneal signs. Absent: distended, tenderness Additional comments: PEG tub present and intact. - Extremities Exam Extremities exam: Present: warm, radial pulses palpable and symetrical. Absent : calf tenderness, cyanotic, pedal edema - Neurological Exam Neurological exam: Present: CN II-XII intact, oriented X3, no focal deficits. Absent: pronater drift, facial droop, speech deficit - Skin Skin exam: Present: dry, intact Internal Medicine: Result - Labs CBC & Chem 7: 07/23/16 04:10 07/23/16 05:00 Labs: Short CBC 07/23/16 Range/Units 04:10 WBC 13.9 H (4.3-11.1) K/mcL Hgb 12.6 L D (12.9-16.9) g/dL Hct 36.8 L (37.5-50.1) % Plt Count 288 (140-400) K/mcL Neutrophils # 8.9 (1.6-8.9) K/mcL BMP 07/23/16 05:00 Sodium 128 L Potassium 3.5 Chloride 95 L Carbon Dioxide 25 BUN 6 L Creatinine 0.59 L Glucose 107 H Calcium 8.0 L - ABG Interpretation ABG results: PT/INR, D-dimer PT 13.5 Seconds (9.4-12.1) H 07/20/16 02:22 - Stroke Reason for No Anticoagulant at DC: Medical contraindication - VTE Reasons for not Prescribing Prophylaxis: Medical contraindication Documentation of Mechanical Device: Graduated compression elastic hosiery Deep Vein Thrombosis/Pulmonary Embolism Present on Admission: No Consult Discharge Plan - Plan Referrals: NO,PCP [Primary Care Provider] -
[2016-07-24] MEDS: *HR* OxyCODONE Immed Rel 15 MG TABLET PO SCH ×6 (00:05→21:25)
[2016-07-24] MEDS: Ipratropium/Albuterol Neb 3 ML IH SCH ×6 (03:50→23:35)
[2016-07-24 04:20] LABS: BUN/Creatinine Ratio 7 (6-26); Calcium 8.5 mg/dL (8.6-10.8); Carbon Dioxide 27 mEq/L (19-29); Chloride 94 mEq/L (98-109); Glucose 106 mg/dL (70-99); Magnesium 1.4 mg/dL (1.6-2.6); Osmolality,Calculated 271 (280-300); Phosphorous 2.9 mg/dL (2.3-4.7); Potassium 3.3 mEq/L (3.5-4.5); Sodium 132 mEq/L (136-145); eGFR For African Americans > 60 (> 60); eGFR For Non-African Americans > 60 (> 60)
[2016-07-24 04:21] LABS: Blood Urea Nitrogen 4 mg/dL (8-26)
[2016-07-24] MEDS: *HR* Heparin 5,000 UNIT/ML VIAL SQ SCH ×2 (04:42→16:44)
[2016-07-24] MEDS: Metoclopramide 10 MG/2 ML VIAL IVP SCH ×2 (04:42→12:08)
[2016-07-24 06:01] LABS: Basophils # 0.1 K/mcL (0.0-0.2); Basophils % 0.5 %; Eosinophils # 2.8 K/mcL (0.0-0.6); Eosinophils % 18.3 %; Hematocrit 36.4 % (37.5-50.1); Hemoglobin 12.7 g/dL (12.9-16.9); Immature Granulocytes % 0.5 % (0-4); Lymphocytes # 2.2 K/mcL (0.6-4.6); Mean Corpuscular HGB Conc 34.9 g/dL (31.6-35.5); Mean Corpuscular Hemoglobin 30.3 pg (28.0-33.3); Mean Corpuscular Volume 86.9 fL (83.0-100.0); Mean Platelet Volume 10.9 fL (9.4-12.4); Monocytes # 1.4 K/mcL (0.0-1.3); Monocytes % 9.2 %; Neutrophils # 8.9 K/mcL (1.6-8.9); Platelet Count 290 K/mcL (140-400); Red Blood Count 4.19 M/mcL (4.19-5.50); Red Cell Distribution Width 13.3 % (11.5-14.5); Segmented Neutrophils % 57.5 %
[2016-07-24 06:25] LABS: Platelet Estimate Normal (Normal)
[2016-07-24] MEDS: Sennosides/Docusate Sodium TABLET PO SCH ×2 (09:06→21:32)
[2016-07-24] MEDS: amLODIPine 5 MG TABLET PO SCH (09:06)
[2016-07-24] MEDS ORDERED: Milk and Molasses Enema 200 ML RC ONE (09:35)
--- NOTE | 2016-07-24 09:56 | Palliative Progress Note ---
Date of Encounter: 07/24/16 Time of Encounter: 09:30 - Assessment and plan (1) Right facial pain Current Visit: Yes Status: Acute Assessment and plan: Remains on Oxycodone every 4 hours and is quite comfortable. Has not had to utilize Dilaudid for breakthrough in over 24 hours. Continue and monitor (2) Constipation Current Visit: Yes Status: Acute Assessment and plan: Continues on Senokot, Reglan, Miralax. Will try mild and molasses enema today. If no success, try methylnaltraxone SQ tomorrow. He was not on any opioids prior to coming to hospital. Qualifiers: Constipation type: unspecified constipation type Qualified Code(s): K59.00 - Constipation, unspecified (3) Counseling regarding advanced care planning and goals of care Current Visit: Yes Status: Acute Assessment and plan: Discharge plan remains to go to [facility]. Remains DNRCC-A. Desires to pursue aggressive cancer treatment. Will continue to follow for support and symptom management. (4) Dysphagia Current Visit: Yes Status: Acute Qualifiers: Dysphagia type: oropharyngeal phase Qualified Code(s): R13.12 - Dysphagia, oropharyngeal phase (5) Neck mass Current Visit: Yes Status: Acute (6) Malnutrition Current Visit: Yes Status: Acute - Time Spent With Patient Total time spent is greater than 50% in coordination of care (as documented) at patient's floor/unit and/or counseling patient: 25 - 35 minutes - Subjective Interval history: Patient sitting up in bed. Working with passy kirill valve and independently places and removes. Still with yellow secretions, but states "not as much". Pain well controlled. Tube feeding up to 50ml hr. Denies any nausea or abd pain. Still no BM. - Constitutional Vitals: Abnormal lab results WBC 15.5 K/mcL (4.3-11.1) H 07/24/16 03:55 Hgb 12.7 g/dL (12.9-16.9) L 07/24/16 03:55 Hct 36.4 % (37.5-50.1) L 07/24/16 03:55 Monocytes # 1.4 K/mcL (0.0-1.3) H 07/24/16 03:55 Eosinophils # 2.8 K/mcL (0.0-0.6) H 07/24/16 03:55 PT 13.5 Seconds (9.4-12.1) H 07/20/16 02:22 APTT 54.3 Seconds (26.0-36.0) H 07/18/16 03:40 Sodium 132 mEq/L (136-145) L 07/24/16 03:50 Potassium 3.3 mEq/L (3.5-4.5) L 07/24/16 03:50 Chloride 94 mEq/L (98-109) L 07/24/16 03:50 BUN 4 mg/dL (8-26) L 07/24/16 03:50 Creatinine 0.59 mg/dL (0.72-1.25) L 07/24/16 03:50 Glucose 106 mg/dL (70-99) H 07/24/16 03:50 POC Glucose 119 (58-89) H 07/24/16 05:41 Calculated Osmolality 271 (280-300) L 07/24/16 03:50 Calcium 8.5 mg/dL (8.6-10.8) L 07/24/16 03:50 Magnesium 1.4 mg/dL (1.6-2.6) L 07/24/16 03:50 Globulin 4.2 g/dL (2.4-3.5) H 07/17/16 14:21 Albumin/Globulin Ratio 0.9 (1.1-2.2) L 07/17/16 14:21 General appearance: Present: no acute distress - Neck Additional comments: Oxygen via trach collar. Coughing up yellow secretions. - Respiratory Additional comments: Few scattered rhonchi - Cardiovascular Cardiovascular exam: Present: +S1, +S2 - GI/Abdominal GI/Abdominal exam: Present: normal bowel sounds, soft Additional comments: PEG intact - Additional comments: Voids per urinal dk yellow urine - Extremities Exam Extremities exam: Present: normal capillary refill, normal inspection - Neurological Exam Neurological exam: Present: alert, oriented X3, strengths equal and symetr throughout - Skin Skin exam: Present: dry, pallor, warm Palliative Quality Palliative Quality: Screen for Code Status: Yes, Screen for Goals of Care: Yes, Screen for Pain: Yes, If Pain Regimen Started, Initiate Bowel Regimen: Yes, Screen for Nausea/Vomitting: Yes Code Status: 07/17/16 14:24 Resuscitation Status: Active [RES] Routine Comment: Resuscitation Status: Full Code 07/18/16 08:55 CODE [Resuscitation Status: Active] [RES] Routine Comment: per discussion with patient this am Resuscitation Status: DNR-Comfort Care 07/19/16 12:51 DNR [Resuscitation Status: Active] [RES] Routine Comment: Resuscitation Status: DNR-Comfort Care-Arrest - Labs CBC & Chem 7: 07/24/16 03:55 07/24/16 03:50 Labs: Laboratory Results - last 24 hr 07/23/16 07/23/16 07/23/16 05:47 11:20 17:07 WBC RBC Hgb Hct MCV MCH MCHC RDW Plt Count MPV Immature Gran % Seg Neutrophils % Lymphocytes % Monocytes % Eosinophils % Basophils % Neutrophils # Lymphocytes # Monocytes # Eosinophils # Basophils # Platelet Estimate Sodium Potassium Chloride Carbon Dioxide BUN Creatinine Est GFR ( Amer) Est GFR (Non-Af Amer) BUN/Creatinine Ratio Glucose POC Glucose 103 H 96 H 118 H Calculated Osmolality Calcium Phosphorus Magnesium 07/24/16 07/24/16 07/24/16 00:20 03:50 03:55 WBC 15.5 H RBC 4.19 Hgb 12.7 L Hct 36.4 L MCV 86.9 MCH 30.3 MCHC 34.9 RDW 13.3 Plt Count 290 MPV 10.9 Immature Gran % 0.5 Seg Neutrophils % 57.5 Lymphocytes % 14.0 Monocytes % 9.2 Eosinophils % 18.3 Basophils % 0.5 Neutrophils # 8.9 Lymphocytes # 2.2 Monocytes # 1.4 H Eosinophils # 2.8 H Basophils # 0.1 Platelet Estimate Normal Sodium 132 L Potassium 3.3 L Chloride 94 L Carbon Dioxide 27 BUN 4 L Creatinine 0.59 L Est GFR ( Amer) > 60 Est GFR (Non-Af Amer) > 60 BUN/Creatinine Ratio 7 Glucose 106 H POC Glucose 105 H Calculated Osmolality 271 L Calcium 8.5 L Phosphorus 2.9 Magnesium 1.4 L 07/24/16 05:41 WBC RBC Hgb Hct MCV MCH MCHC RDW Plt Count MPV Immature Gran % Seg Neutrophils % Lymphocytes % Monocytes % Eosinophils % Basophils % Neutrophils # Lymphocytes # Monocytes # Eosinophils # Basophils # Platelet Estimate Sodium Potassium Chloride Carbon Dioxide BUN Creatinine Est GFR ( Amer) Est GFR (Non-Af Amer) BUN/Creatinine Ratio Glucose POC Glucose 119 H Calculated Osmolality Calcium Phosphorus Magnesium - ABG Interpretation ABG results: PT/INR, D-dimer PT 13.5 Seconds (9.4-12.1) H 07/20/16 02:22 Consult Discharge Plan - Plan Referrals: NO,PCP [Primary Care Provider] -
[2016-07-24] MEDS: Piperacillin/Tazobactam 3.375 GM in D5% in Water (Mini-Bag+) 100 ML IVPB SCH ×2 (12:08→16:00)
[2016-07-24] MEDS: 0.9 % Sodium Chloride 1,000 ML IVC SCH (12:10)
[2016-07-24] MEDS ORDERED: Magnesium Sulfate 2 GM in D5% in Water 100 ML IV ONE (14:38)
[2016-07-24] MEDS ORDERED: Potassium Chloride 40 MEQ, Lidocaine 1% 2 ML in D5% in Water 500 ML IVPB ONE (14:38)
--- NOTE | 2016-07-24 17:36 | Event Note ---
Date of Encounter: 07/24/16 Time of Encounter: 17:25 I spoke to PÉREZ Guevara for the patient seth. Patient doing well with trach and PEG. Discharge planning ongoing from Palliative Care and social work team. After speaking to Kirby, the patient wishes aggressive treatment. Since the patient did not have surgery for laryngectomy, he would need to get started right away with chemo/radiation treatments. The patient and POA want outpatient treatment at [facility], Address: [address] [place] [address] [place] [address] . [facility] is 20 minutes from patient's home. [facility] is 90 minutes. A Typical plan for a head and neck cancer can be 30 radiation treatments (Friday -Friday for 6 weeks), and high dose cisplatin every 21 days for 3 doses. Patient would need any dental issues addressed first prior to treatment, as radiation can cause necrosis of the jaw bones at site of fresh dental work. I noticed poor dentition on exam last week Chemo/radiation can be done with patients with trach and PEG tubes, a question from his POA. 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 I shared with POA. [facility] should have radiation oncologist, but may be hiring medical oncologist last time we checked. [place] can do the 3 chemo treatments if necessary with radiation treatments at [facility]. Dr Robbins in agreement with above plan.
--- NOTE | 2016-07-24 19:01 | Internal Med Progress Note ---
Date of Encounter: 07/24/16 Time of Encounter: 19:00 - Assessment and plan (1) Dysphagia Current Visit: Yes Status: Acute Qualifiers: Dysphagia type: oropharyngeal phase Qualified Code(s): R13.12 - Dysphagia, oropharyngeal phase (2) Oropharyngeal cancer Current Visit: Yes Status: Acute (3) Protein-calorie malnutrition, severe Current Visit: Yes Status: Acute (4) Status post tracheostomy Current Visit: Yes Status: Acute (5) HTN (hypertension) Current Visit: Yes Status: Chronic Assessment and plan: Lung sounds continues to remaain coarse, continue pulm toilet. 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 continue trach and peg care, Tracheostomy was performed 3 days ago to help relieve obstruction from large airway tumor monitor hyponatremia, continue peg feeds, replace electrolytes follow speech therapy recommendations. Palliative care following. Qualifiers: Hypertension type: essential hypertension Qualified Code(s): I10 - Essential (primary) hypertension - Subjective Interval history: Patient evaluated, seen lying in bed. No complains today. - Constitutional Vitals: Temp Pulse Resp BP Pulse Ox 97.6 F 91 16 153/79 95 07/24/16 18:55 07/24/16 18:55 07/24/16 18:55 07/24/16 18:55 07/24/16 18:55 General appearance: Present: cooperative, A&O X 3, pleasant, no acute distress, answers questions appropriately - Head Head exam: Present: atraumatic, normocephalic - Eye Eye exam: Present: PERRL, conjuntiva pink, sclera anicteric Pupils: Present: PERRL - Neck Neck exam general surgery: Present: supple, trachea midline. Absent: lymphadenopathy - Respiratory Respiratory exam: Present: decreased breath sounds, CTAB, rhonchi. Absent: accessory muscle use, rales, wheezes Additional comments: trach in place - Cardiovascular Cardiovascular exam: Present: RRR, +S1, +S2. Absent: diastolic murmur, gallop, rubs, systolic murmur - GI/Abdominal GI/Abdominal exam: Present: normal bowel sounds, soft, no peritoneal signs. Absent: distended, tenderness - Extremities Exam Extremities exam: Present: warm, radial pulses palpable and symetrical. Absent : calf tenderness, cyanotic, pedal edema - Neurological Exam Neurological exam: Present: CN II-XII intact, oriented X3, no focal deficits. Absent: pronater drift, facial droop, speech deficit - Skin Skin exam: Present: dry, intact Internal Medicine: Result - Labs CBC & Chem 7: 07/24/16 03:55 07/24/16 03:50 Labs: Short CBC 07/24/16 Range/Units 03:55 WBC 15.5 H (4.3-11.1) K/mcL Hgb 12.7 L (12.9-16.9) g/dL Hct 36.4 L (37.5-50.1) % Plt Count 290 (140-400) K/mcL Neutrophils # 8.9 (1.6-8.9) K/mcL BMP 07/24/16 03:50 Sodium 132 L Potassium 3.3 L Chloride 94 L Carbon Dioxide 27 BUN 4 L Creatinine 0.59 L Glucose 106 H Calcium 8.5 L - ABG Interpretation ABG results: PT/INR, D-dimer PT 13.5 Seconds (9.4-12.1) H 07/20/16 02:22 - Stroke Reason for No Anticoagulant at DC: Medical contraindication - VTE Reasons for not Prescribing Prophylaxis: Medical contraindication Documentation of Mechanical Device: Graduated compression elastic hosiery Deep Vein Thrombosis/Pulmonary Embolism Present on Admission: No Consult Discharge Plan - Plan Referrals: NO,PCP [Primary Care Provider] -
[2016-07-25] MEDS: *HR* OxyCODONE Immed Rel 15 MG TABLET PO SCH ×6 (00:54→20:35)
[2016-07-25] MEDS: Ipratropium/Albuterol Neb 3 ML IH SCH ×5 (04:00→20:59)
[2016-07-25] MEDS: Piperacillin/Tazobactam 3.375 GM in D5% in Water (Mini-Bag+) 100 ML IVPB SCH ×3 (05:00→16:21)
[2016-07-25] MEDS: *HR* Heparin 5,000 UNIT/ML VIAL SQ SCH ×2 (05:05→17:24)
[2016-07-25 05:22] LABS: Basophils # 0.1 K/mcL (0.0-0.2); Basophils % 0.5 %; Eosinophils # 1.9 K/mcL (0.0-0.6); Eosinophils % 16.7 %; Hematocrit 36.6 % (37.5-50.1); Hemoglobin 12.7 g/dL (12.9-16.9); Immature Granulocytes % 0.6 % (0-4); Lymphocytes # 1.6 K/mcL (0.6-4.6); Lymphocytes % 14.2 %; Mean Corpuscular HGB Conc 34.7 g/dL (31.6-35.5); Mean Corpuscular Hemoglobin 30.1 pg (28.0-33.3); Mean Corpuscular Volume 86.7 fL (83.0-100.0); Mean Platelet Volume 10.7 fL (9.4-12.4); Monocytes # 1.5 K/mcL (0.0-1.3); Monocytes % 13.5 %; Neutrophils # 6.1 K/mcL (1.6-8.9); Platelet Count 355 K/mcL (140-400); Red Blood Count 4.22 M/mcL (4.19-5.50); Red Cell Distribution Width 13.3 % (11.5-14.5); Segmented Neutrophils % 54.5 %
[2016-07-25 05:43] LABS: BUN/Creatinine Ratio 5 (6-26); Calcium 8.9 mg/dL (8.6-10.8); Carbon Dioxide 27 mEq/L (19-29); Chloride 95 mEq/L (98-109); Glucose 125 mg/dL (70-99); Magnesium 1.8 mg/dL (1.6-2.6); Osmolality,Calculated 270 (280-300); Phosphorous 2.7 mg/dL (2.3-4.7); Potassium 3.6 mEq/L (3.5-4.5); Sodium 131 mEq/L (136-145); eGFR For African Americans > 60 (> 60); eGFR For Non-African Americans > 60 (> 60)
[2016-07-25 05:44] LABS: Blood Urea Nitrogen 3 mg/dL (8-26)
[2016-07-25] MEDS: 0.9 % Sodium Chloride 1,000 ML IVC SCH ×2 (06:40→20:36)
[2016-07-25] MEDS: Sennosides/Docusate Sodium TABLET PO SCH ×2 (09:29→20:49)
[2016-07-25] MEDS: amLODIPine 5 MG TABLET PO SCH (09:31)
--- NOTE | 2016-07-25 13:45 | Palliative Progress Note ---
Date of Encounter: 07/25/16 Time of Encounter: 13:30 - Assessment and plan (1) Right facial pain Current Visit: No Status: Acute Assessment and plan: Patient denies any pain. Current regimen of Oxycodone effective. No additional BTP Dilaudid requested. (2) Constipation Current Visit: No Status: Acute Assessment and plan: Patient had large BM's. Reports feeling better from passing stool. Will continue current regimen. Qualifiers: Constipation type: unspecified constipation type Qualified Code(s): K59.00 - Constipation, unspecified (3) Counseling regarding advanced care planning and goals of care Current Visit: Yes Status: Acute Assessment and plan: Oncology educated patient on post discharge f/u and plans for treatment at [facility]. Patient reports POA is aware as well as he is. Patient is DNRCC -A. - Time Spent With Patient Total time spent is greater than 50% in coordination of care (as documented) at patient's floor/unit and/or counseling patient: 25 - 35 minutes - Subjective Interval history: Patient sitting up in bed. Passy Muier on and verbalizes without difficulty. Patient tolerating physical therapy and tube feedings well. He reports no pain or discomfort at present. - Constitutional Vitals: Abnormal lab results WBC 11.2 K/mcL (4.3-11.1) H 07/25/16 04:22 Hgb 12.7 g/dL (12.9-16.9) L 07/25/16 04:22 Hct 36.6 % (37.5-50.1) L 07/25/16 04:22 Monocytes # 1.5 K/mcL (0.0-1.3) H 07/25/16 04:22 Eosinophils # 1.9 K/mcL (0.0-0.6) H 07/25/16 04:22 PT 13.5 Seconds (9.4-12.1) H 07/20/16 02:22 APTT 54.3 Seconds (26.0-36.0) H 07/18/16 03:40 Sodium 131 mEq/L (136-145) L 07/25/16 04:22 Chloride 95 mEq/L (98-109) L 07/25/16 04:22 BUN 3 mg/dL (8-26) L 07/25/16 04:22 Creatinine 0.56 mg/dL (0.72-1.25) L 07/25/16 04:22 BUN/Creatinine Ratio 5 (6-26) L 07/25/16 04:22 Glucose 125 mg/dL (70-99) H 07/25/16 04:22 POC Glucose 112 (58-89) H 07/25/16 05:17 Calculated Osmolality 270 (280-300) L 07/25/16 04:22 Globulin 4.2 g/dL (2.4-3.5) H 07/17/16 14:21 Albumin/Globulin Ratio 0.9 (1.1-2.2) L 07/17/16 14:21 - Head Head exam: Present: atraumatic, normal inspection, normocephalic - Eye Eye exam: Present: PERRL Pupils: Present: PERRL - ENT ENT exam: Present: mucous membranes moist - Neck Neck exam: Present: tenderness (trach to mask. Slight drainage from trach. ) - Respiratory Respiratory exam: Present: rhonchi (Scattered rhonchi) - Cardiovascular Cardiovascular exam: Present: RRR, +S1, +S2 - GI/Abdominal GI/Abdominal exam: Present: normal bowel sounds, soft (PEG tube) - Rectal Rectal exam: Present: deferred - Extremities Exam Extremities exam: Present: full ROM - Back Exam Back exam: Present: full ROM - Neurological Exam Neurological exam: Present: alert, CN II-XII intact, oriented X3 - Psychiatric Psychiatric exam: Present: normal affect - Skin Skin exam: Present: pallor, warm Palliative Quality Palliative Quality: Screen for Code Status: Yes, Screen for Goals of Care: Yes, Screen for Pain: Yes, If Pain Regimen Started, Initiate Bowel Regimen: Yes, Screen for Nausea/Vomitting: Yes Code Status: 07/17/16 14:24 Resuscitation Status: Active [RES] Routine Comment: Resuscitation Status: Full Code 07/18/16 08:55 CODE [Resuscitation Status: Active] [RES] Routine Comment: per discussion with patient this am Resuscitation Status: DNR-Comfort Care 07/19/16 12:51 DNR [Resuscitation Status: Active] [RES] Routine Comment: Resuscitation Status: DNR-Comfort Care-Arrest - Labs CBC & Chem 7: 07/25/16 04:22 07/25/16 04:22 Labs: Laboratory Results - last 24 hr 07/24/16 07/24/16 07/25/16 11:19 16:32 00:07 WBC RBC Hgb Hct MCV MCH MCHC RDW Plt Count MPV Immature Gran % Seg Neutrophils % Lymphocytes % Monocytes % Eosinophils % Basophils % Neutrophils # Lymphocytes # Monocytes # Eosinophils # Basophils # Sodium Potassium Chloride Carbon Dioxide BUN Creatinine Est GFR ( Amer) Est GFR (Non-Af Amer) BUN/Creatinine Ratio Glucose POC Glucose 107 H 135 H 100 H Calculated Osmolality Calcium Phosphorus Magnesium 07/25/16 07/25/16 07/25/16 04:22 04:22 05:17 WBC 11.2 H RBC 4.22 Hgb 12.7 L Hct 36.6 L MCV 86.7 MCH 30.1 MCHC 34.7 RDW 13.3 Plt Count 355 MPV 10.7 Immature Gran % 0.6 Seg Neutrophils % 54.5 Lymphocytes % 14.2 Monocytes % 13.5 Eosinophils % 16.7 Basophils % 0.5 Neutrophils # 6.1 Lymphocytes # 1.6 Monocytes # 1.5 H Eosinophils # 1.9 H Basophils # 0.1 Sodium 131 L Potassium 3.6 Chloride 95 L Carbon Dioxide 27 BUN 3 L Creatinine 0.56 L Est GFR ( Amer) > 60 Est GFR (Non-Af Amer) > 60 BUN/Creatinine Ratio 5 L Glucose 125 H POC Glucose 112 H Calculated Osmolality 270 L Calcium 8.9 Phosphorus 2.7 Magnesium 1.8 - ABG Interpretation ABG results: PT/INR, D-dimer PT 13.5 Seconds (9.4-12.1) H 07/20/16 02:22 Consult Discharge Plan - Plan Referrals: NO,PCP [Primary Care Provider] -
[2016-07-25] MEDS: Acetaminophen 325 MG TABLET PO PRN (14:20)
--- NOTE | 2016-07-25 16:33 | Event Note ---
Date of Encounter: 07/25/16 Time of Encounter: 11:00 I spoke to Marina on the palliative care team. We have nothing new to add to the plan today. I did speak to Jeferson Staples as well, regarding the patient's poor dentition. Typically, patient is seen by a dentist, that is often sent to maxillofacial surgeon if there needs to be extensive teeth extraction. However, the radiation oncologist at [facility] treating the patient would be the one to make a decision about any prior dental care needs or referrals before starting radiation treatments. Spoke to my nurse navigator, Chika Kessler, and she confirmed the above. I will See if she can call the extended [facility] [place] give them an update.
--- NOTE | 2016-07-25 16:53 | ENT - Progress Note ---
Date of Encounter: 07/25/16 Time of Encounter: 12:45 - Assessment and Plan (1) Airway obstruction Current Visit: Yes Status: Acute Patient with airway obstruction secondary to oropharyngeal mass which came back as squamous cell carcinoma of the oropharynx on frozen section. Tracheostomy was performed 3 days ago to help relieve obstruction from large airway tumor. Airway currently stable status post tracheostomy. (2) Status post tracheostomy Current Visit: Yes Status: Acute Patient currently postop day #6 after tracheostomy was placed. Tracheostomy stoma currently looks healthy without any bleeding. Trach sutures were removed at the bedside today but will continue to wait until patient is at least a week out until trach change is performed. Will likely change patient to an uncuffed #6 tube. #6DCFS tube is available at bedside for change currently. Patient did fail ability to use [place] speaking valve this week, appreciate speech therapy's input. Patient may be better able to tolerate valve when secretions have decreased and once tube has been changed to a cuffless tube. . (3) Oropharyngeal cancer Current Visit: Yes Status: Acute Patient with squamous cell carcinoma of the Oropharynx extending into the parapharyngeal space with metastasis to the neck. LARYNGECTOMY WOULD NOT REMOVE THIS TUMOR AND IT IS NOT AN ADEQUATE SURGICAL OPTION FOR THIS PATIENT IT IS NOT A LARYNGEAL TUMOR. Frozen section was obtained at the time of the biopsy performed by Dr. Bermudez this weekend which confirms squamous cell carcinoma. Upon further review of the CT scans of his neck it showed that the large tumor extends from the area of the tonsil into the parapharyngeal space encasing the great vessels. Patient with extensive lymphadenopathy in the neck corresponding to metastasis. Due to the extensive spread of the tumor into the parapharyngeal space and encasing of the great vessels this is not resectable. Further treatment per radiation oncology for treatment of a squamous cell carcinoma. (4) Sputum production Current Visit: Yes Status: Acute Patient with copious purlent secretions from mainstem bronchi on examination today and continuing after aggressive suctioning. Sputum culture was taken. Patient currently being covered with Zosyn by primary team. Recommend repeat chest x-ray by primary team. Subjective Narrative: Patient seen and examined at bedside. Patient resting in bed with trach collar. Objective Initial Vital Signs Temp Pulse Resp BP Pulse Ox 97.5 F L 88 17 179/97 97 07/17/16 13:50 07/17/16 13:50 07/17/16 13:50 07/17/16 13:50 07/17/16 13:50 - General physical appearance moderate distress - ENT poor mcc - Neck other (#6 Cuffed shiley tracheostomy tube in place, sutures removed from faceplate, trach well seated, no bleeding from stoma. ) - Respiratory other (Copious purulent secretions expelled with cough) - Psychiatric other (Patient responds appropriately, communication is limited by tracheostomy) - Additional Exam please see procedure report for tracheobronchoscopy. - Labs 07/25/16 04:22 07/25/16 04:22 Diabetes panel 07/25/16 Range/Units 04:22 Sodium 131 L (136-145) mEq/L Potassium 3.6 (3.5-4.5) mEq/L Chloride 95 L (98-109) mEq/L Carbon Dioxide 27 (19-29) mEq/L BUN 3 L (8-26) mg/dL Creatinine 0.56 L (0.72-1.25) mg/dL Glucose 125 H (70-99) mg/dL Calcium 8.9 (8.6-10.8) mg/dL Calcium panel 07/25/16 Range/Units 04:22 Calcium 8.9 (8.6-10.8) mg/dL Phosphorus 2.7 (2.3-4.7) mg/dL Pituitary panel 07/25/16 Range/Units 04:22 Sodium 131 L (136-145) mEq/L Potassium 3.6 (3.5-4.5) mEq/L Chloride 95 L (98-109) mEq/L Carbon Dioxide 27 (19-29) mEq/L BUN 3 L (8-26) mg/dL Creatinine 0.56 L (0.72-1.25) mg/dL Glucose 125 H (70-99) mg/dL Calcium 8.9 (8.6-10.8) mg/dL Adrenal panel 07/25/16 Range/Units 04:22 Sodium 131 L (136-145) mEq/L Potassium 3.6 (3.5-4.5) mEq/L Chloride 95 L (98-109) mEq/L Carbon Dioxide 27 (19-29) mEq/L BUN 3 L (8-26) mg/dL Creatinine 0.56 L (0.72-1.25) mg/dL Glucose 125 H (70-99) mg/dL Calcium 8.9 (8.6-10.8) mg/dL - Stroke Reason for No Anticoagulant at DC: Medical contraindication - VTE Reasons for not Prescribing Prophylaxis: Medical contraindication Documentation of Mechanical Device: Graduated compression elastic hosiery Deep Vein Thrombosis/Pulmonary Embolism Present on Admission: No Consult Discharge Plan - Plan Referrals: NO,PCP [Primary Care Provider] -
--- NOTE | 2016-07-25 17:12 | ENT - Procedure Note ---
Date of procedure: 07/25/16 Pre-op diagnosis: airway obstruction, s/p tracheostomy Post-op diagnosis: same Procedure: Tracheobronchoscopy through existing trach stoma. Flexible laryngoscope was placed within lumen of tracheostomy tube and advanced to visualize the trachea. copious mucoid secretions were seen blocking the malika. Scope was removed and 8 nicarag[place] suction was used to suction trachea through tracheostomy tube. Large amount of mucoid secretions were suctioned. Patient then was able to cough a large amount of mucoid secretions. Scope was then repeated through trachestomy tube. Large amount of mucoid secretions persisted despite aggressive pulmonary toilet. Malika and mainstem bronchi were visualized with some remaining secretions. Scope was removed. Patient tolerated this procedure without apparent complication. Implants: none Surgeon: Irene Zee Estimated blood loss (cc): 0 Condition: stable
--- NOTE | 2016-07-25 18:45 | Internal Med Progress Note ---
Date of Encounter: 07/25/16 Time of Encounter: 18:40 - Assessment and plan (1) Dysphagia Current Visit: Yes Status: Acute Qualifiers: Dysphagia type: oropharyngeal phase Qualified Code(s): R13.12 - Dysphagia, oropharyngeal phase (2) Oropharyngeal cancer Current Visit: Yes Status: Acute (3) Protein-calorie malnutrition, severe Current Visit: Yes Status: Acute (4) Status post tracheostomy Current Visit: Yes Status: Acute (5) HTN (hypertension) Current Visit: Yes Status: Chronic Assessment and plan: Lung sounds continues to remain coarse, continue IV abx and duonebs. wbc improving. 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 continue trach and peg feeds and care, ENT notes noted. monitor electrolytes palliative care following. aniticipate discharge to SNF in 24-48 hours if continues to improve. Qualifiers: Hypertension type: essential hypertension Qualified Code(s): I10 - Essential (primary) hypertension - Subjective Interval history: Patient evaluated, seen sitting up in commode, No complains today. - Constitutional Vitals: Temp Pulse Resp BP Pulse Ox 97.8 F 86 18 158/87 98 07/25/16 15:51 07/25/16 15:51 07/25/16 15:51 07/25/16 15:51 07/25/16 15:51 General appearance: Present: cooperative, A&O X 3, pleasant, no acute distress, answers questions appropriately - Head Head exam: Present: atraumatic, normocephalic - Eye Eye exam: Present: PERRL, conjuntiva pink, sclera anicteric Pupils: Present: PERRL - Neck Neck exam general surgery: Present: supple, trachea midline. Absent: lymphadenopathy - Respiratory Respiratory exam: Present: decreased breath sounds, rhonchi. Absent: accessory muscle use, rales, wheezes Additional comments: Trach in place - Cardiovascular Cardiovascular exam: Present: RRR, +S1, +S2. Absent: diastolic murmur, gallop, rubs, systolic murmur - GI/Abdominal GI/Abdominal exam: Present: normal bowel sounds, soft, no peritoneal signs. Absent: distended, tenderness - Extremities Exam Extremities exam: Present: warm, radial pulses palpable and symetrical. Absent : calf tenderness, cyanotic, pedal edema - Neurological Exam Neurological exam: Present: CN II-XII intact, oriented X3, no focal deficits. Absent: pronater drift, facial droop, speech deficit - Skin Skin exam: Present: dry, intact Internal Medicine: Result - Labs CBC & Chem 7: 07/25/16 04:22 07/25/16 04:22 Labs: Short CBC 07/25/16 Range/Units 04:22 WBC 11.2 H (4.3-11.1) K/mcL Hgb 12.7 L (12.9-16.9) g/dL Hct 36.6 L (37.5-50.1) % Plt Count 355 (140-400) K/mcL Neutrophils # 6.1 (1.6-8.9) K/mcL BMP 07/25/16 04:22 Sodium 131 L Potassium 3.6 Chloride 95 L Carbon Dioxide 27 BUN 3 L Creatinine 0.56 L Glucose 125 H Calcium 8.9 - ABG Interpretation ABG results: PT/INR, D-dimer PT 13.5 Seconds (9.4-12.1) H 07/20/16 02:22 - Stroke Reason for No Anticoagulant at DC: Medical contraindication - VTE Reasons for not Prescribing Prophylaxis: Medical contraindication Documentation of Mechanical Device: Graduated compression elastic hosiery Deep Vein Thrombosis/Pulmonary Embolism Present on Admission: No Consult Discharge Plan - Plan Referrals: NO,PCP [Primary Care Provider] -
[2016-07-26] MEDS: Ipratropium/Albuterol Neb 3 ML IH SCH ×8 (00:01→23:43)
[2016-07-26] MEDS: Piperacillin/Tazobactam 3.375 GM in D5% in Water (Mini-Bag+) 100 ML IVPB SCH ×4 (00:24→23:21)
[2016-07-26] MEDS: *HR* OxyCODONE Immed Rel 15 MG TABLET PO SCH ×3 (00:25→08:29)
[2016-07-26 04:56] LABS: Basophils # 0.1 K/mcL (0.0-0.2); Basophils % 0.7 %; Eosinophils # 1.9 K/mcL (0.0-0.6); Eosinophils % 17.9 %; Hematocrit 37.5 % (37.5-50.1); Hemoglobin 12.9 g/dL (12.9-16.9); Immature Granulocytes % 0.9 % (0-4); Lymphocytes # 1.6 K/mcL (0.6-4.6); Mean Corpuscular HGB Conc 34.4 g/dL (31.6-35.5); Mean Corpuscular Hemoglobin 29.5 pg (28.0-33.3); Mean Corpuscular Volume 85.6 fL (83.0-100.0); Mean Platelet Volume 10.3 fL (9.4-12.4); Monocytes # 1.7 K/mcL (0.0-1.3); Monocytes % 15.8 %; Neutrophils # 5.3 K/mcL (1.6-8.9); Platelet Count 428 K/mcL (140-400); Red Blood Count 4.38 M/mcL (4.19-5.50); Red Cell Distribution Width 13.3 % (11.5-14.5); Segmented Neutrophils % 49.7 %
[2016-07-26 05:14] LABS: BUN/Creatinine Ratio 7 (6-26); Calcium 8.6 mg/dL (8.6-10.8); Carbon Dioxide 22 mEq/L (19-29); Chloride 99 mEq/L (98-109); Glucose 127 mg/dL (70-99); Osmolality,Calculated 270 (280-300); Potassium 3.4 mEq/L (3.5-4.5); Sodium 131 mEq/L (136-145); eGFR For African Americans > 60 (> 60); eGFR For Non-African Americans > 60 (> 60)
[2016-07-26 05:15] LABS: Blood Urea Nitrogen 4 mg/dL (8-26)
[2016-07-26] MEDS: *HR* Heparin 5,000 UNIT/ML VIAL SQ SCH ×2 (06:32→18:30)
[2016-07-26] MEDS: amLODIPine 5 MG TABLET PO SCH (08:30)
[2016-07-26] MEDS: Sennosides/Docusate Sodium TABLET PO SCH (08:31)
[2016-07-26] MEDS: 0.9 % Sodium Chloride 1,000 ML IVC SCH ×2 (08:43→08:44)
--- NOTE | 2016-07-26 09:33 | Palliative Progress Note ---
Date of Encounter: 07/26/16 Time of Encounter: 09:30 - Assessment and plan (1) Right facial pain Current Visit: No Status: Acute Assessment and plan: Under good control and has refused several doses of Oxycodone - will change to PRN as he appears to requiring less (2) Constipation Current Visit: No Status: Acute Assessment and plan: Now having loose stool. Will decrease Senokot down to daily and hold for loose stools. Qualifiers: Constipation type: unspecified constipation type Qualified Code(s): K59.00 - Constipation, unspecified (3) Counseling regarding advanced care planning and goals of care Current Visit: Yes Status: Acute Assessment and plan: [facility] on discharge. Reviewed oncology notes - will need dental work prior to initiation of chemotherapy. Will f/u Friday if pt remains in hospital. POA has been established with pt - friend Kirby is primary. (4) Dysphagia Current Visit: Yes Status: Acute Qualifiers: Dysphagia type: oropharyngeal phase Qualified Code(s): R13.12 - Dysphagia, oropharyngeal phase (5) Neck mass Current Visit: Yes Status: Acute (6) Malnutrition Current Visit: Yes Status: Acute - Time Spent With Patient Total time spent is greater than 50% in coordination of care (as documented) at patient's floor/unit and/or counseling patient: - Subjective Interval history: Patient sleeping quietly. + multiple BM's now. Has required less pain medications. Tolerating tube feeds well. - Constitutional Vitals: Abnormal lab results Plt Count 428 K/mcL (140-400) H 07/26/16 04:15 Monocytes # 1.7 K/mcL (0.0-1.3) H 07/26/16 04:15 Eosinophils # 1.9 K/mcL (0.0-0.6) H 07/26/16 04:15 PT 13.5 Seconds (9.4-12.1) H 07/20/16 02:22 APTT 54.3 Seconds (26.0-36.0) H 07/18/16 03:40 Sodium 131 mEq/L (136-145) L 07/26/16 04:15 Potassium 3.4 mEq/L (3.5-4.5) L 07/26/16 04:15 BUN 4 mg/dL (8-26) L 07/26/16 04:15 Creatinine 0.56 mg/dL (0.72-1.25) L 07/26/16 04:15 Glucose 127 mg/dL (70-99) H 07/26/16 04:15 POC Glucose 113 (58-89) H 07/26/16 00:27 Calculated Osmolality 270 (280-300) L 07/26/16 04:15 Globulin 4.2 g/dL (2.4-3.5) H 07/17/16 14:21 Albumin/Globulin Ratio 0.9 (1.1-2.2) L 07/17/16 14:21 General appearance: Present: no acute distress - ENT Additional comments: Trach intact - Respiratory Additional comments: scattered rhonchi - Cardiovascular Cardiovascular exam: Present: +S1, +S2 - GI/Abdominal Additional comments: PEG intact - Extremities Exam Extremities exam: Present: normal capillary refill, normal inspection - Neurological Exam Neurological exam: Present: alert, oriented X3, strengths equal and symetr throughout Palliative Quality Palliative Quality: Screen for Code Status: Yes, Screen for Goals of Care: Yes, Screen for Pain: Yes, If Pain Regimen Started, Initiate Bowel Regimen: Yes, Screen for Nausea/Vomitting: Yes Code Status: 07/17/16 14:24 Resuscitation Status: Active [RES] Routine Comment: Resuscitation Status: Full Code 07/18/16 08:55 CODE [Resuscitation Status: Active] [RES] Routine Comment: per discussion with patient this am Resuscitation Status: DNR-Comfort Care 07/19/16 12:51 DNR [Resuscitation Status: Active] [RES] Routine Comment: Resuscitation Status: DNR-Comfort Care-Arrest - Labs CBC & Chem 7: 07/26/16 04:15 07/26/16 04:15 Labs: Laboratory Results - last 24 hr 07/25/16 07/25/16 07/26/16 11:47 18:05 00:27 WBC RBC Hgb Hct MCV MCH MCHC RDW Plt Count MPV Immature Gran % Seg Neutrophils % Lymphocytes % Monocytes % Eosinophils % Basophils % Neutrophils # Lymphocytes # Monocytes # Eosinophils # Basophils # Sodium Potassium Chloride Carbon Dioxide BUN Creatinine Est GFR ( Amer) Est GFR (Non-Af Amer) BUN/Creatinine Ratio Glucose POC Glucose 105 H 123 H 113 H Calculated Osmolality Calcium 07/26/16 07/26/16 04:15 04:15 WBC 10.7 RBC 4.38 Hgb 12.9 Hct 37.5 MCV 85.6 MCH 29.5 MCHC 34.4 RDW 13.3 Plt Count 428 H MPV 10.3 Immature Gran % 0.9 Seg Neutrophils % 49.7 Lymphocytes % 15.0 Monocytes % 15.8 Eosinophils % 17.9 Basophils % 0.7 Neutrophils # 5.3 Lymphocytes # 1.6 Monocytes # 1.7 H Eosinophils # 1.9 H Basophils # 0.1 Sodium 131 L Potassium 3.4 L Chloride 99 Carbon Dioxide 22 BUN 4 L Creatinine 0.56 L Est GFR ( Amer) > 60 Est GFR (Non-Af Amer) > 60 BUN/Creatinine Ratio 7 Glucose 127 H POC Glucose Calculated Osmolality 270 L Calcium 8.6 - ABG Interpretation ABG results: PT/INR, D-dimer PT 13.5 Seconds (9.4-12.1) H 07/20/16 02:22 Consult Discharge Plan - Plan Referrals: NO,PCP [Primary Care Provider] -
[2016-07-26] MEDS: Acetaminophen 325 MG TABLET PO PRN (11:05)
--- NOTE | 2016-07-26 18:25 | Internal Med Progress Note ---
Date of Encounter: 07/26/16 Time of Encounter: 18:23 - Assessment and plan (1) Dysphagia Current Visit: Yes Status: Acute Qualifiers: Dysphagia type: oropharyngeal phase Qualified Code(s): R13.12 - Dysphagia, oropharyngeal phase (2) Oropharyngeal cancer Current Visit: Yes Status: Acute (3) Protein-calorie malnutrition, severe Current Visit: Yes Status: Acute (4) Status post tracheostomy Current Visit: Yes Status: Acute (5) HTN (hypertension) Current Visit: Yes Status: Chronic Assessment and plan: Lung sounds continues to remain coarse with some improvement. S/P deep sunction by ENT. continue IV abx and duonebs. 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 continue trach and peg feeds and care. monitor electrolytes palliative care following. aniticipate discharge to SNF in 24-48 hours if continues to improve. Qualifiers: Hypertension type: essential hypertension Qualified Code(s): I10 - Essential (primary) hypertension - Subjective Interval history: Patient evaluated, seen sitting up in chair today, some mucus drainage noted in trach. - Constitutional Vitals: Temp Pulse Resp BP Pulse Ox 98.2 F 95 18 120/67 95 07/26/16 11:49 07/26/16 11:49 07/26/16 11:49 07/26/16 11:49 07/26/16 11:49 General appearance: Present: cooperative, A&O X 3, pleasant, no acute distress, answers questions appropriately - Head Head exam: Present: atraumatic, normocephalic - Eye Eye exam: Present: PERRL, conjuntiva pink, sclera anicteric Pupils: Present: PERRL - Neck Neck exam general surgery: Present: supple, trachea midline. Absent: lymphadenopathy Additional comments: trach collar intact. - Respiratory Respiratory exam: Present: decreased breath sounds, rhonchi, wheezes. Absent: accessory muscle use, rales - Cardiovascular Cardiovascular exam: Present: RRR, +S1, +S2. Absent: diastolic murmur, gallop, rubs, systolic murmur - GI/Abdominal GI/Abdominal exam: Present: normal bowel sounds, soft, no peritoneal signs. Absent: distended, tenderness - Extremities Exam Extremities exam: Present: warm, radial pulses palpable and symetrical. Absent : calf tenderness, cyanotic, pedal edema - Neurological Exam Neurological exam: Present: CN II-XII intact, oriented X3, no focal deficits. Absent: pronater drift, facial droop, speech deficit - Skin Skin exam: Present: dry, intact Internal Medicine: Result - Labs CBC & Chem 7: 07/26/16 04:15 07/26/16 04:15 Labs: Short CBC 07/26/16 Range/Units 04:15 WBC 10.7 (4.3-11.1) K/mcL Hgb 12.9 (12.9-16.9) g/dL Hct 37.5 (37.5-50.1) % Plt Count 428 H (140-400) K/mcL Neutrophils # 5.3 (1.6-8.9) K/mcL BMP 07/26/16 04:15 Sodium 131 L Potassium 3.4 L Chloride 99 Carbon Dioxide 22 BUN 4 L Creatinine 0.56 L Glucose 127 H Calcium 8.6 - ABG Interpretation ABG results: PT/INR, D-dimer PT 13.5 Seconds (9.4-12.1) H 07/20/16 02:22 - Stroke Reason for No Anticoagulant at DC: Medical contraindication - VTE Reasons for not Prescribing Prophylaxis: Medical contraindication Documentation of Mechanical Device: Graduated compression elastic hosiery Deep Vein Thrombosis/Pulmonary Embolism Present on Admission: No Consult Discharge Plan - Plan Referrals: NO,PCP [Primary Care Provider] -
[2016-07-26] MEDS ORDERED: Potassium Chloride 40 MEQ, Lidocaine 1% 2 ML in D5% in Water 500 ML IVPB ONE (18:27)
[2016-07-27] MEDS: *HR* Heparin 5,000 UNIT/ML VIAL SQ SCH ×2 (05:07→17:33)
[2016-07-27] MEDS: Ipratropium/Albuterol Neb 3 ML IH SCH ×5 (05:20→20:28)
[2016-07-27 05:23] LABS: Basophils # 0.1 K/mcL (0.0-0.2); Basophils % 0.9 %; Eosinophils # 1.6 K/mcL (0.0-0.6); Eosinophils % 13.2 %; Hematocrit 39.9 % (37.5-50.1); Hemoglobin 13.7 g/dL (12.9-16.9); Immature Granulocytes % 0.9 % (0-4); Lymphocytes # 1.9 K/mcL (0.6-4.6); Lymphocytes % 15.4 %; Mean Corpuscular HGB Conc 34.3 g/dL (31.6-35.5); Mean Corpuscular Hemoglobin 29.5 pg (28.0-33.3); Mean Corpuscular Volume 85.8 fL (83.0-100.0); Mean Platelet Volume 10.2 fL (9.4-12.4); Monocytes # 2.2 K/mcL (0.0-1.3); Monocytes % 18.2 %; Neutrophils # 6.3 K/mcL (1.6-8.9); Platelet Count 509 K/mcL (140-400); Red Blood Count 4.65 M/mcL (4.19-5.50); Red Cell Distribution Width 13.6 % (11.5-14.5); Segmented Neutrophils % 51.4 %
[2016-07-27 05:34] LABS: BUN/Creatinine Ratio 12 (6-26); Blood Urea Nitrogen 7 mg/dL (8-26); Calcium 9.2 mg/dL (8.6-10.8); Carbon Dioxide 24 mEq/L (19-29); Chloride 98 mEq/L (98-109); Glucose 115 mg/dL (70-99); Osmolality,Calculated 273 (280-300); Potassium 4.1 mEq/L (3.5-4.5); Sodium 132 mEq/L (136-145); eGFR For African Americans > 60 (> 60); eGFR For Non-African Americans > 60 (> 60)
[2016-07-27 06:12] LABS: Platelet Estimate Increased (Normal)
[2016-07-27] MEDS: Sennosides/Docusate Sodium TABLET PO SCH (08:23)
[2016-07-27] MEDS: amLODIPine 5 MG TABLET PO SCH (08:23)
[2016-07-27] MEDS: Piperacillin/Tazobactam 3.375 GM in D5% in Water (Mini-Bag+) 100 ML IVPB SCH ×2 (08:24→15:45)
[2016-07-27] MEDS: *HR* HYDROmorphone (PF) 1 MG/ML SYRINGE IVP PRN ×2 (09:32→15:19)
--- NOTE | 2016-07-27 13:45 | ENT - Progress Note ---
Date of Encounter: 07/27/16 Time of Encounter: 14:00 - Assessment and Plan (1) Airway obstruction Current Visit: Yes Status: Acute Tracheostomy tube removed tracheobronchoscopy performed at bedside revealing no evidence of any abnormalities in the trachea stoma or in the malika the stoma was healing nicely a #6 cuffed trach tube was placed and secured the patient should have no problems with future trach changes recommending follow-up in 6 weeks for evaluation and ileostomy tube change Subjective Narrative: White male white male postop tracheostomy tube placement 8 days ago for initial change of tracheostomy tube patient having no problems with breathing bleeding or any other issues concerning the tracheostomy tube Objective Initial Vital Signs Temp Pulse Resp BP Pulse Ox 97.5 F L 88 17 179/97 97 07/17/16 13:50 07/17/16 13:50 07/17/16 13:50 07/17/16 13:50 07/17/16 13:50 - Neck other (Tracheostomy tube in and functioning WITHout any problems) - Labs 07/27/16 05:11 07/27/16 05:11 Diabetes panel 07/27/16 Range/Units 05:11 Sodium 132 L (136-145) mEq/L Potassium 4.1 (3.5-4.5) mEq/L Chloride 98 (98-109) mEq/L Carbon Dioxide 24 (19-29) mEq/L BUN 7 L (8-26) mg/dL Creatinine 0.59 L (0.72-1.25) mg/dL Glucose 115 H (70-99) mg/dL Calcium 9.2 (8.6-10.8) mg/dL Calcium panel 07/27/16 Range/Units 05:11 Calcium 9.2 (8.6-10.8) mg/dL Pituitary panel 07/27/16 Range/Units 05:11 Sodium 132 L (136-145) mEq/L Potassium 4.1 (3.5-4.5) mEq/L Chloride 98 (98-109) mEq/L Carbon Dioxide 24 (19-29) mEq/L BUN 7 L (8-26) mg/dL Creatinine 0.59 L (0.72-1.25) mg/dL Glucose 115 H (70-99) mg/dL Calcium 9.2 (8.6-10.8) mg/dL Adrenal panel 07/27/16 Range/Units 05:11 Sodium 132 L (136-145) mEq/L Potassium 4.1 (3.5-4.5) mEq/L Chloride 98 (98-109) mEq/L Carbon Dioxide 24 (19-29) mEq/L BUN 7 L (8-26) mg/dL Creatinine 0.59 L (0.72-1.25) mg/dL Glucose 115 H (70-99) mg/dL Calcium 9.2 (8.6-10.8) mg/dL - Stroke Reason for No Anticoagulant at DC: Medical contraindication - VTE Reasons for not Prescribing Prophylaxis: Medical contraindication Documentation of Mechanical Device: Graduated compression elastic hosiery Deep Vein Thrombosis/Pulmonary Embolism Present on Admission: No Consult Discharge Plan - Plan Additional Instructions: Patient to follow up in ENT clinic in 6 weeks for assessment of tracheostomy tube in first change in office Referrals: NO,PCP [Primary Care Provider] -
--- NOTE | 2016-07-27 17:14 | Internal Med Progress Note ---
Date of Encounter: 07/27/16 Time of Encounter: 16:35 - Constitutional Vitals: Temp Pulse Resp BP Pulse Ox 98.2 F 75 14 102/65 93 L 07/27/16 15:36 07/27/16 15:49 07/27/16 16:09 07/27/16 15:36 07/27/16 16:09 General appearance: Present: cooperative, A&O X 3, pleasant, no acute distress, answers questions appropriately Internal Medicine: Result - Labs CBC & Chem 7: 07/27/16 05:11 07/27/16 05:11 Labs: Short CBC 07/27/16 Range/Units 05:11 WBC 12.3 H (4.3-11.1) K/mcL Hgb 13.7 (12.9-16.9) g/dL Hct 39.9 (37.5-50.1) % Plt Count 509 H (140-400) K/mcL Neutrophils # 6.3 (1.6-8.9) K/mcL BMP 07/27/16 05:11 Sodium 132 L Potassium 4.1 Chloride 98 Carbon Dioxide 24 BUN 7 L Creatinine 0.59 L Glucose 115 H Calcium 9.2 - ABG Interpretation ABG results: PT/INR, D-dimer PT 13.5 Seconds (9.4-12.1) H 07/20/16 02:22 - Stroke Reason for No Anticoagulant at DC: Medical contraindication - VTE Reasons for not Prescribing Prophylaxis: Medical contraindication Documentation of Mechanical Device: Graduated compression elastic hosiery Deep Vein Thrombosis/Pulmonary Embolism Present on Admission: No Consult Discharge Plan - Plan Additional Instructions: Patient to follow up in ENT clinic in 6 weeks for assessment of tracheostomy tube in first change in office Referrals: NO,PCP [Primary Care Provider] -
--- NOTE | 2016-07-27 17:19 | Internal Med Progress Note ---
Date of Encounter: 07/27/16 Time of Encounter: 16:00 - Assessment and plan (1) Airway obstruction Current Visit: Yes Status: Acute (2) Dysphagia Current Visit: Yes Status: Acute Qualifiers: Dysphagia type: oropharyngeal phase Qualified Code(s): R13.12 - Dysphagia, oropharyngeal phase (3) Malnutrition Current Visit: Yes Status: Acute (4) Oropharyngeal cancer Current Visit: Yes Status: Acute (5) Protein-calorie malnutrition, severe Current Visit: Yes Status: Acute (6) Status post tracheostomy Current Visit: Yes Status: Acute Assessment and plan: Continue monitoring tube feeding, monitoring electrolyte, plan to discharge to SNF once bed available, transfer to monitor bed. Discussed with staff. Generalized weakness will check vitamin B12, she should be medication from IV to oral, wean off Ativan and change it to oral - Subjective Interval history: Patient is tolerating tube feeding, based on staff his oxygen saturation is stable on room air,based on ENT report Tracheostomy tube removed tracheobronchoscopy performed at bedside revealing no evidence of any abnormalities in the trachea stoma or in the malika, the stoma was healing nicely a #6 cuffed trach tube was placed and secured . - Constitutional Vitals: Temp Pulse Resp BP Pulse Ox 98.2 F 75 14 102/65 93 L 07/27/16 15:36 07/27/16 15:49 07/27/16 16:09 07/27/16 15:36 07/27/16 16:09 General appearance: Present: cooperative, A&O X 3, pleasant, no acute distress, answers questions appropriately - Neck Neck exam general surgery: Present: supple. Absent: tenderness - Respiratory Respiratory exam: Present: decreased breath sounds. Absent: accessory muscle use, rales, rhonchi, wheezes - Cardiovascular Cardiovascular exam: Present: RRR, +S1, +S2. Absent: diastolic murmur, gallop, rubs, systolic murmur - GI/Abdominal GI/Abdominal exam: Present: normal bowel sounds, soft, no peritoneal signs. Absent: distended, tenderness - Extremities Exam Extremities exam: Present: warm, radial pulses palpable and symetrical. Absent : calf tenderness, cyanotic, pedal edema - Skin Skin exam: Present: dry, intact Internal Medicine: Result - Labs CBC & Chem 7: 07/27/16 05:11 07/27/16 05:11 Labs: Short CBC 07/27/16 Range/Units 05:11 WBC 12.3 H (4.3-11.1) K/mcL Hgb 13.7 (12.9-16.9) g/dL Hct 39.9 (37.5-50.1) % Plt Count 509 H (140-400) K/mcL Neutrophils # 6.3 (1.6-8.9) K/mcL BMP 07/27/16 05:11 Sodium 132 L Potassium 4.1 Chloride 98 Carbon Dioxide 24 BUN 7 L Creatinine 0.59 L Glucose 115 H Calcium 9.2 - ABG Interpretation ABG results: PT/INR, D-dimer PT 13.5 Seconds (9.4-12.1) H 07/20/16 02:22 - Stroke Reason for No Anticoagulant at DC: Medical contraindication - VTE Reasons for not Prescribing Prophylaxis: Medical contraindication Documentation of Mechanical Device: Graduated compression elastic hosiery Deep Vein Thrombosis/Pulmonary Embolism Present on Admission: No Consult Discharge Plan - Plan Additional Instructions: Patient to follow up in ENT clinic in 6 weeks for assessment of tracheostomy tube in first change in office Referrals: NO,PCP [Primary Care Provider] -
[2016-07-27] MEDS ORDERED: *HR* LORazepam 0.5 MG TABLET PO PRN (17:26)
[2016-07-27] MEDS: Mirtazapine 15 MG TABLET PO SCH (20:13)
[2016-07-27] MEDS: *HR* OxyCODONE Immed Rel 15 MG TABLET PO PRN (20:14)
[2016-07-28] MEDS: Ipratropium/Albuterol Neb 3 ML IH SCH ×6 (00:29→20:33)
[2016-07-28] MEDS: Piperacillin/Tazobactam 3.375 GM in D5% in Water (Mini-Bag+) 100 ML IVPB SCH ×3 (03:56→17:38)
[2016-07-28] MEDS: *HR* Heparin 5,000 UNIT/ML VIAL SQ SCH ×2 (06:41→17:38)
[2016-07-28] MEDS: amLODIPine 5 MG TABLET PO SCH (08:36)
[2016-07-28] MEDS: Sennosides/Docusate Sodium TABLET PO SCH (08:36)
--- NOTE | 2016-07-28 09:17 | Internal Med Progress Note ---
Date of Encounter: 07/28/16 Time of Encounter: 09:15 - Assessment and plan (1) Airway obstruction Current Visit: Yes Status: Acute Assessment and plan: ENT following, trach has been checked and is functional. Continue suctioning prn (2) Oropharyngeal cancer Current Visit: Yes Status: Acute Assessment and plan: Stage IV s/p Trach and PEG For oncology after discharge from SNF Physical deconditioned, PT following SW for placement (3) Protein-calorie malnutrition, severe Current Visit: Yes Status: Acute Assessment and plan: Continue tube feeds and free water. (4) Status post tracheostomy Current Visit: Yes Status: Acute Assessment and plan: Continue monitoring tube feeding, monitoring electrolyte, plan to discharge to SNF once bed available (5) HTN (hypertension) Current Visit: Yes Status: Chronic Assessment and plan: Controlled, continue Norvasc Qualifiers: Hypertension type: essential hypertension Qualified Code(s): I10 - Essential (primary) hypertension (6) Tobacco abuse Current Visit: Yes Status: Chronic Assessment and plan: Patient has history of chronic tobacco abuse, has no needs for NRT at this time - Subjective Interval history: Mr. Amato is a 66 Y/O M with Stage IV unresectable Oropharyngeal CA, s/p Trach and PEG, and HTN He is seen at bedside, with no new complains - Constitutional Vitals: Temp Pulse Resp BP Pulse Ox 98.6 F 96 20 124/67 97 07/28/16 07:50 07/28/16 07:50 07/28/16 07:53 07/28/16 07:50 07/28/16 07:53 General appearance: Present: cooperative, A&O X 3, pleasant, no acute distress, answers questions appropriately - Head Head exam: Present: atraumatic - Eye Eye exam: Present: PERRL, conjuntiva pink, sclera anicteric - ENT ENT exam: Present: mucous membranes moist - Neck Additional comments: Trach, cuffed, no obvious purulent discharge - Respiratory Additional comments: Coarse breath sounds bilaterally - Cardiovascular Cardiovascular exam: Present: RRR, +S1, +S2. Absent: JVD, +S3 - GI/Abdominal Additional comments: PEG site clean and dry Abdomen is soft, not tender, no palpably enlarged organs, bowel sounds present - Extremities Exam Extremities exam: Present: warm, radial pulses palpable and symetrical. Absent : calf tenderness, cyanotic, pedal edema - Neurological Exam Neurological exam: Present: CN II-XII intact, oriented X3, no focal deficits. Absent: pronater drift, facial droop, speech deficit - Skin Skin exam: Present: dry Internal Medicine: Result - Labs CBC & Chem 7: 07/27/16 05:11 07/27/16 05:11 - ABG Interpretation ABG results: PT/INR, D-dimer PT 13.5 Seconds (9.4-12.1) H 07/20/16 02:22 - Stroke Reason for No Anticoagulant at DC: Medical contraindication - VTE Reasons for not Prescribing Prophylaxis: Medical contraindication Documentation of Mechanical Device: Intermittent pneumatic compression device Deep Vein Thrombosis/Pulmonary Embolism Present on Admission: No Consult Discharge Plan - Plan Additional Instructions: Patient to follow up in ENT clinic in 6 weeks for assessment of tracheostomy tube in first change in office Referrals: NO,PCP [Primary Care Provider] -
[2016-07-28 09:30] LABS: Basophils # 0.1 K/mcL (0.0-0.2); Basophils % 0.9 %; Eosinophils # 1.2 K/mcL (0.0-0.6); Eosinophils % 10.7 %; Hematocrit 35.7 % (37.5-50.1); Hemoglobin 12.3 g/dL (12.9-16.9); Immature Granulocytes % 0.8 % (0-4); Immature Platelets 5.1 % (1.1-6.1); Lymphocytes # 1.7 K/mcL (0.6-4.6); Mean Corpuscular HGB Conc 34.5 g/dL (31.6-35.5); Mean Corpuscular Hemoglobin 29.7 pg (28.0-33.3); Mean Corpuscular Volume 86.2 fL (83.0-100.0); Monocytes % 16.8 %; Neutrophils # 6.5 K/mcL (1.6-8.9); Platelet Count 537 K/mcL (140-400); Red Blood Count 4.14 M/mcL (4.19-5.50); Red Cell Distribution Width 13.9 % (11.5-14.5); Segmented Neutrophils % 55.8 %
[2016-07-28] MEDS ORDERED: Scopolamine Patch 1.5 MG PATCH.TD72 TD ONE (10:13)
--- NOTE | 2016-07-28 11:33 | Physician Discharge Referral ---
ExtendedCare Referral Info Transfer To: [facility] Provider in Charge after Transfer: PCP Institutional Level of Care: Skilled - Diagnosis (1) Airway obstruction Priority: Primary Status: Acute (2) Oropharyngeal cancer Priority: Primary Status: Acute (3) Protein-calorie malnutrition, severe Priority: Primary Status: Acute (4) Status post tracheostomy Priority: Primary Status: Acute (5) HTN (hypertension) Priority: Secondary Status: Chronic (6) Tobacco abuse Priority: Secondary Status: Chronic Prognosis: Fair Aware of Diagnosis: Patient Aware of Prognosis: Patient - Transfer Medications Home Medications: Albuterol Sulfate [Albuterol Inhaler] 2 puff IH Q4HR PRN 07/17/16 [History] Acetaminophen [Tylenol] 650 mg PO Q6HR PRN #0 tablet 07/28/16 [Rx] Amlodipine [Norvasc] 10 mg PO DAILY #0 tablet 07/28/16 [Rx] Docusate [Colace] 100 mg PO BID PRN #0 capsule 07/28/16 [Rx] LORazepam [Ativan] 0.5 mg PO TID PRN #0 tablet 07/28/16 [Rx] MOM Conc [MILK OF MAGNESIA conc] 10 ml PO DAILY PRN #0 ud.liq 07/28/16 [Rx] Metoprolol [Lopressor] 25 mg PO BID tablet 07/28/16 [Rx] Mirtazapine [Remeron] 7.5 mg PO HS tablet 07/28/16 [Rx] OxyCODONE Immed Rel [Roxicodone 15 MG] 15 mg PO Q4HR PRN #20 tablet 07/28/16 [Rx ] Polyethylene Glycol 3350 [MiraLAX] 17 gm PO DAILY powd.pack 07/28/16 [Rx] Sennosides/Docusate Sodium [Senna Plus] 1 each PO DAILY tablet 07/28/16 [Rx] Allergies/Adverse Reactions: Allergies No Known Allergies Allergy (Verified 07/17/16 13:52) - Respiratory Orders Oxygen / L per min (PRN, via trach collar) Smoking Cessation: Smoking cessation has been advised. For more information, call the [place] Tobacco Quit Line at 3-878-WGLT-NOW. - Advance Directives Code Status: DNR-Arrest - Mobility Orders Ambulate - Rehabiliation Orders Rehab Potential: Fair Rehab Orders: Evaluation for Physical Therapy - Diet Orders Tube Feedings (type/amount/rate): Osmolite 1.2 80ml/hr via PEG tube CERTIFICATION: I certify that the transfer of the above named patient to an Extended Care Facility is necessary for the continuing treatment of the diagnosis listed. The above information is true and accurate reflection of patient's current condition. Confidential - Redisclosure prohibited without a patient's written consent.
--- NOTE | 2016-07-28 11:37 | Discharge Summary ---
Date of Encounter: 07/28/16 Time of Encounter: 11:35 - Discharge Diagnosis (1) Airway obstruction Priority: Primary Status: Acute Comments: ENT reviewed trach has been checked and is functional. Continue suctioning prn Follow up with ENT in 6 weeks (2) Oropharyngeal cancer Priority: Primary Status: Acute Comments: Stage IV s/p Trach and PEG Follow up with oncology after discharge from SNF Physical deconditioned, PT following For transfer to SNF (3) Protein-calorie malnutrition, severe Priority: Primary Status: Acute Comments: Continue tube feeds and free water. (4) Status post tracheostomy Priority: Primary Status: Acute (5) HTN (hypertension) Priority: Secondary Status: Chronic Comments: Controlled, continue Norvasc and Metoprolol Qualifiers: Hypertension type: essential hypertension Qualified Code(s): I10 - Essential (primary) hypertension (6) Tobacco abuse Priority: Secondary Status: Chronic Comments: Patient has history of chronic tobacco abuse, has no needs for NRT at this time Smoking cessation discussed for 2 minutes - Discharge Medications Prescriptions: OxyCODONE Immed Rel [Roxicodone 15 MG] 15 mg PO Q4HR PRN #20 tablet PRN Reason: Pain Home Medications: Albuterol Sulfate [Albuterol Inhaler] 2 puff IH Q4HR PRN 07/17/16 [History] Acetaminophen [Tylenol] 650 mg PO Q6HR PRN #0 tablet 07/28/16 [Rx] Amlodipine [Norvasc] 10 mg PO DAILY #0 tablet 07/28/16 [Rx] Docusate [Colace] 100 mg PO BID PRN #0 capsule 07/28/16 [Rx] LORazepam [Ativan] 0.5 mg PO TID PRN #0 tablet 07/28/16 [Rx] MOM Conc [MILK OF MAGNESIA conc] 10 ml PO DAILY PRN #0 ud.liq 07/28/16 [Rx] Metoprolol [Lopressor] 25 mg PO BID tablet 07/28/16 [Rx] Mirtazapine [Remeron] 7.5 mg PO HS tablet 07/28/16 [Rx] OxyCODONE Immed Rel [Roxicodone 15 MG] 15 mg PO Q4HR PRN #20 tablet 07/28/16 [Rx ] Polyethylene Glycol 3350 [MiraLAX] 17 gm PO DAILY powd.pack 07/28/16 [Rx] Sennosides/Docusate Sodium [Senna Plus] 1 each PO DAILY tablet 07/28/16 [Rx] Allergies/Adverse Reactions: Allergies No Known Allergies Allergy (Verified 07/17/16 13:52) Date of admission: 07/17/16 17:48 Primary care physician: PCP NO Consults: 07/17/16 14:32 Consult to Surgery [CONS] Routine Consulting Provider: [facility] Reason for Consult: PEG tube placement. Suspected oropharyngeal ca. 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 placing PEG tomorrow. Please eval and advise of his options. Time Notified: 08:32 Call Completed: Yes Consult to Palliative Care [CONS] Routine Comment: new dx laryngeal cancer- placing peg, poor prognos Consulting Provider: [facility] 07/18/16 14:48 Consult to Nutrition [CONS] Routine Comment: Consulting Provider: NUTRITION Reason for Dietary Consult: TF Start and Manage 07/22/16 10:59 Consult to Occupational Therapy [CONS] Routine Comment: Evaluate, develop and implement POC Consult to Physical Therapy [CONS] Routine Comment: Evaluate, develop and implement POC Consult to Manager New Product [CONS] Routine Reason for SW Consult: new tracheostomy, assess for homegoing needs - possible ECF 07/22/16 18:27 Consult to Invasive Line Access Team [CONS] Routine Reason for Consult: patient has had 4 PIVs since 07/20. Multiple skin scars, difficult stick (5 attempts to get last access). Expect stay > 72 hours Line Type: EPIV 07/23/16 11:28 Consult to Speech Therapy [CONS] Routine Comment: Evaluate, develop and implement POC Passey kirill Reason for Consult: Passey kirill valve Call Completed: No Discharging clinician: Guillermo Copeland Anticipated date of discharge: 07/28/16 - Patient Status Disposition: Transfer SNF Condition: Fair Functional capacity at discharge: bed bound Overall status at discharge: patient is progressing back to baseline - Discharge Instructions Follow Up With: BIJAN,PCP [Primary Care Provider] - Additional Instructions: Patient to follow up in ENT clinic in 6 weeks for assessment of tracheostomy tube in first change in office - Diet and Activity Activity: resume usual activities as tolerated Diet: other (Tube feeds) Interval History: See below Hospital course: Mr. Conley is a 66 year old male admitted for Trach and PEG placement after a diagnoses of StageIV Oropharyngeal CA He is stable for d/c to SNF Rest of details as in diagnoses Time spent discussing smoking cessation with patient: 3 to 10 minutes - Time Spent with Patient Total time spent providing and/or coordinating discharge services: Less than 30 minutes - Constitutional Vitals: Temp Pulse Resp BP Pulse Ox 98.6 F 96 16 124/67 98 07/28/16 07:50 07/28/16 07:50 07/28/16 11:25 07/28/16 07:50 07/28/16 11:25 General appearance: Present: cooperative, A&O X 3, pleasant, no acute distress, answers questions appropriately - Head Head exam: Present: atraumatic, normocephalic - Eye Eye exam: Present: PERRL, conjuntiva pink, sclera anicteric Pupils: Present: PERRL - Neck Additional comments: Trach - Respiratory Additional comments: Bilateral coarse breath sounds - Cardiovascular Cardiovascular exam: Present: RRR, +S1, +S2. Absent: diastolic murmur, gallop, rubs, systolic murmur - GI/Abdominal GI/Abdominal exam: Present: normal bowel sounds, soft, no peritoneal signs. Absent: distended, tenderness Additional comments: PEG tube site clean and dry - Extremities Exam Extremities exam: Present: warm, radial pulses palpable and symetrical. Absent : calf tenderness, cyanotic, pedal edema - Neurological Exam Neurological exam: Present: CN II-XII intact, oriented X3, no focal deficits. Absent: pronater drift, facial droop, speech deficit - Skin Skin exam: Present: dry - Stroke Reason for No Anticoagulant at DC: Medical contraindication - VTE Reasons for not Prescribing Prophylaxis: Medical contraindication Documentation of Mechanical Device: Intermittent pneumatic compression device Deep Vein Thrombosis/Pulmonary Embolism Present on Admission: No
--- NOTE | 2016-07-28 16:09 | Event Note ---
Date of Encounter: 07/28/16 Time of Encounter: 16:07 Attention drawn by CARDIAC CATH TECH of trach being dislodged. Attempt to fix it by pushing it back was difficult. I also tried this by myself and met some resistance. ENT consulted and at bedside He recommends a longer tube and to hold discharge till this is done Will hold off transfer to SNF as recommended
--- NOTE | 2016-07-28 16:12 | ENT - Consult Note ---
Date of Encounter: 07/28/16 Time of Encounter: 16:00 Assessment and Plan (1) Airway obstruction Current Visit: Yes Status: Acute (2) Airway obstruction Current Visit: Yes Status: Acute Identified false tract to the right and anterior instructed the nurses on how to find the true tract if this became dislodged again will discuss this case with Dr. Zee who may want to obtain in place a longer tracheostomy tube in there which would make the probability of this slipping into the false track more unlikely History of Present Illness History of present illness: Follow-up for uneventful trach change from yesterday with scoping of the tract revealing no issues today the patient's trach tube became dislodged and was not able to be put back in. Apparently has created a false track anteriorly into the right and the staff was unable to get the tube back in and the breathing was mildly compromised Past Med Surg Social Fam HX - Past Medical History Medical history: CVA Psychiatric history: no psych history - Past Surgical History Surgical History: non-contributory, orthopedic, other (L knee surgery, L shoulder surgery ) - Social History Smoking Status: Current every day smoker Packs per day: 0.5 Smokeless Tobacco Status: No Alcohol use: occasionally Drug use: none Medications and Allergies Albuterol Sulfate [Albuterol Inhaler] 2 puff IH Q4HR PRN 07/17/16 [History] Acetaminophen [Tylenol] 650 mg PO Q6HR PRN #0 tablet 07/28/16 [Rx] Amlodipine [Norvasc] 10 mg PO DAILY #0 tablet 07/28/16 [Rx] Docusate [Colace] 100 mg PO BID PRN #0 capsule 07/28/16 [Rx] LORazepam [Ativan] 0.5 mg PO TID PRN #0 tablet 07/28/16 [Rx] MOM Conc [MILK OF MAGNESIA conc] 10 ml PO DAILY PRN #0 ud.liq 07/28/16 [Rx] Metoprolol [Lopressor] 25 mg PO BID tablet 07/28/16 [Rx] Mirtazapine [Remeron] 7.5 mg PO HS tablet 07/28/16 [Rx] OxyCODONE Immed Rel [Roxicodone 15 MG] 15 mg PO Q4HR PRN #20 tablet 07/28/16 [Rx ] Polyethylene Glycol 3350 [MiraLAX] 17 gm PO DAILY powd.pack 07/28/16 [Rx] Sennosides/Docusate Sodium [Senna Plus] 1 each PO DAILY tablet 07/28/16 [Rx] Allergies No Known Allergies Allergy (Verified 07/17/16 13:52) ENT Exam Initial Vital Signs Temp Pulse Resp BP Pulse Ox 97.5 F L 88 17 179/97 97 07/17/16 13:50 07/17/16 13:50 07/17/16 13:50 07/17/16 13:50 07/17/16 13:50 - Additional Findings Tracheostomy tube removed and false tract identified to which the tube kept falling into anteriorly into the right tube was easily placed by curving it slightly to the left and pushing it posteriorly to go down the true tract and a slip into the tracheostomy i.e. trachea easily over this becomes slightly dislodged and comes out easily go back into the false tract Exam Initial Vital Signs Temp Pulse Resp BP Pulse Ox 97.5 F L 88 17 179/97 97 07/17/16 13:50 07/17/16 13:50 07/17/16 13:50 07/17/16 13:50 07/17/16 13:50 Results - Labs 07/28/16 08:57 07/27/16 05:11 Abnormal lab results WBC 11.6 K/mcL (4.3-11.1) H 07/28/16 08:57 RBC 4.14 M/mcL (4.19-5.50) L 07/28/16 08:57 Hgb 12.3 g/dL (12.9-16.9) L 07/28/16 08:57 Hct 35.7 % (37.5-50.1) L 07/28/16 08:57 Plt Count 537 K/mcL (140-400) H 07/28/16 08:57 Monocytes # 2.0 K/mcL (0.0-1.3) H 07/28/16 08:57 Eosinophils # 1.2 K/mcL (0.0-0.6) H 07/28/16 08:57 Platelet Estimate Increased (Normal) H 07/27/16 05:11 PT 13.5 Seconds (9.4-12.1) H 07/20/16 02:22 APTT 54.3 Seconds (26.0-36.0) H 07/18/16 03:40 Sodium 132 mEq/L (136-145) L 07/27/16 05:11 BUN 7 mg/dL (8-26) L 07/27/16 05:11 Creatinine 0.59 mg/dL (0.72-1.25) L 07/27/16 05:11 Glucose 115 mg/dL (70-99) H 07/27/16 05:11 POC Glucose 112 (58-89) H 07/28/16 11:55 Calculated Osmolality 273 (280-300) L 07/27/16 05:11 Globulin 4.2 g/dL (2.4-3.5) H 07/17/16 14:21 Albumin/Globulin Ratio 0.9 (1.1-2.2) L 07/17/16 14:21 All other labs normal. Consult Discharge Plan - Plan Additional Instructions: Patient to follow up in ENT clinic in 6 weeks for assessment of tracheostomy tube in first change in office Referrals: NO,PCP [Primary Care Provider] - Prescriptions: OxyCODONE Immed Rel [Roxicodone 15 MG] 15 mg PO Q4HR PRN #20 tablet PRN Reason: Pain
[2016-07-28] MEDS: *HR* OxyCODONE Immed Rel 15 MG TABLET PO PRN ×2 (17:37→22:33)
[2016-07-28] MEDS: Acetaminophen 325 MG TABLET PO PRN (19:36)
[2016-07-28] MEDS: Mirtazapine 15 MG TABLET PO SCH (22:33)
[2016-07-29] MEDS: Ipratropium/Albuterol Neb 3 ML IH SCH ×5 (00:11→15:54)
[2016-07-29] MEDS: Piperacillin/Tazobactam 3.375 GM in D5% in Water (Mini-Bag+) 100 ML IVPB SCH ×3 (01:08→16:40)
[2016-07-29] MEDS: *HR* Heparin 5,000 UNIT/ML VIAL SQ SCH (06:01)
[2016-07-29] MEDS ORDERED: Piperacillin/Tazobactam 3.375 GM VIAL IVPB ONE (08:27)
[2016-07-29] MEDS ORDERED: amLODIPine 5 MG TABLET PO SCH (08:27)
[2016-07-29] MEDS: Sennosides/Docusate Sodium TABLET PO SCH (08:31)
[2016-07-29] MEDS: *HR* OxyCODONE Immed Rel 15 MG TABLET PO PRN ×2 (10:44→16:10)
[2016-07-29] MEDS: Acetaminophen 325 MG TABLET PO PRN (11:42)
--- NOTE | 2016-07-29 13:55 | Event Note ---
Date of Encounter: 07/29/16 Time of Encounter: 13:53 Patient seen and examined at bedside. Patient doing well with trach currently, no issues, doing better with communication. Discussed use of Passy-Leonel Valve and used at bedside. Patient tolerated well without drop in oxygen saturation. Discussed that patient follow up in 6-8weeks for tracheostomy tube change.
--- NOTE | 2016-07-29 14:53 | Event Note ---
Date of Encounter: 07/29/16 Time of Encounter: 14:48 66 Y/O M with HTN, Tbacco abuse, admitted for orophangeal CA stage IV, now with Trach and PEG Patient is seen at bedside, siting out in chair with no new symptoms He was meant to be transferred to SNF but discharge was held last evening due to displaced Trach. ENT has seen him this morning and cleared him for discharge On physical exam he is afebrile, not in distress Chest is clear to auscultation bilaterally Trach is in-situ secured, no discharge Heart is S1, S2 only, no m/g/r Abdomen: PEG tube is clean. Extremities no edema Plan is to discharge to SNF Other details as in discharge summary done 07/28/16
[2016-07-29 15:30] VITALS: BP 102/64
--- NOTE | 2016-07-29 16:18 | Electrocardiograph Report ---
[facility] Test Date: 2016-07-29 Pat Name: Jason Conley Department: 112 Room: 13 Gender: M Nurse Specialist: [id number] : 1950 Requested By: Guillermo Copeland Order Number: [id number] Reading MD: Mary Vilchis Measurements Intervals [place] Rate: 87 P: 5 CA: 157 QRS: -8 QRSD: 124 T: 14 QT: 380 QTc: 425 Interpretive Statements SINUS RHYTHM RIGHT BUNDLE BRANCH BLOCK Electronically Signed On 07-29-16 16:17:02 EST by Mary Vilchis
== END 2016-07-29 18:30 | DRG 11 ==
LOC: 3BNU → SUATTDRO 17:48 → 2NNU 07-20 13:03 → 2ANU 07-27 18:03
PROVIDERS: ADMIT Internal Medicine; ATTEND Family Medicine